=== PATIENT | female | born 1965 | race Caucasian/White ===

== ENCOUNTER 2020-05-03 07:51 | Outpatient (REF) | payer OTHER, SELFPAY ==
[2020-05-03 11:46] LABS: Alanine Aminotransferase 11 U/L (0-31); Albumin Level 4.3 g/dL (3.5-5.0); Alkaline Phosphatase 82 U/L (39-117); Anion Gap 13 (12-20); Aspartate Amino Transferase 16 U/L (5-31); Bilirubin Total 0.9 mg/dL (0.0-1.0); Blood Urea Nitrogen 15 mg/dL (9-16); Calcium 8.7 mg/dL (8.4-10.2); Carbon Dioxide 28 mmol/L (22-29); Chloride 105 mmol/L (96-108); Cholesterol 196 mg/dL; Estimated Glomerular Filt Rate > 60; Glucose Fasting 95 mg/dL (60-99); HDL Cholesterol 57 mg/dL; LDL Cholesterol Calculated 107 mg/dl; Potassium 4.3 mmol/l (3.3-5.1); Sodium 142 mmol/L (135-145); Total Protein 7.1 g/dL (6.5-8.0); Triglycerides 160 mg/dL
[2020-05-03 11:56] LABS: Free T4 (Free Thyroxine) 1.18 ng/dL (0.71-1.85); Thyroid Stimulating Hormone 0.18 mIU/mL (0.32-4.0)
== END 2020-05-03 07:52 | disposition home or self-care (01) ==
LOC: HO.HMGCLDS 07:51
PROVIDERS: PCP Internal Medicine; Visit Provider Internal Medicine
DX: E78.5 Hyperlipidemia, unspecified (principal); E03.9 Hypothyroidism, unspecified; E66.3 Overweight; K21.9 Gastro-esophageal reflux disease without esophagitis; J30.9 Allergic rhinitis, unspecified
CPT/HCPCS: 80053; 80061; 84439; 84443

== ENCOUNTER → 2020-06-28 08:26 | Outpatient (REF) | payer OTHER, SELFPAY ==
--- NOTE | 2020-06-28 08:29 | CA_ITS ---
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 The visually estimated ejection fraction is between 60-65%. - Suspect interatrial shunting based on color Doppler. PFO vs ASD. - There is mild calcification of the aortic valve. - There is mild mitral valve regurgitation. - There is mild tricuspid valve regurgitation. Findings Left Ventricle Normal left ventricular cavity size. There is normal left ventricular wall thickness. The left ventricular systolic function is normal. The visually estimated ejection fraction is between 60-65%. There is no evidence of regional wall motion abnormalities. Diastolic function is normal for age. Right Ventricle Normal right ventricular cavity size and systolic function. Atria The left atrium is normal in size. The right atrium is normal in size. Suspect interatrial shunting based on color Doppler. PFO vs ASD. Aortic Valve There is a normal trileaflet aortic valve. There is mild calcification of the aortic valve. There is no aortic valve stenosis. There is no aortic valve regurgitation. Mitral Valve The mitral valve appears normal. There is mild mitral valve regurgitation. There is no mitral valve stenosis. Pulmonic Valve The pulmonic valve was not well visualized. There is no pulmonic valve regurgitation. Tricuspid Valve Normal tricuspid valve structure. There is mild tricuspid valve regurgitation. The pulmonary artery systolic pressure is normal. Great Vessels The aortic annulus, sinuses of valsalva, and asc aorta are normal in size. Venous The inferior vena cava is normal in size and collapses greater than 50% with inspiration. Pericardium/Pleural There is no evidence of pericardial effusion. Prior Study Comparison Changes noted compared to prior study dated: 05/11/2006. See comments on atrial septum. Not previously described. Measurements 2D Linear Measurements RVIDd: 3.24 RVIDd Index: 1.88 IVSd: 0.67 0.6-0.9/0.6-1.0 cm LVIDd: 4.76 3.9-5.3/4.2-5.9 cm LVIDd Index: 2.77 2.4-3.2/2.2-3.1 cm/m2 LVIDs: 2.69 2.0-3.6 cm LVPWd: 0.74 0.7-1.1 cm Ao Root: 2.10 2.1-3.5 cm LA Diam: 3.40 2.7-3.8/3.0-4.0 cm LAIDs Index: 1.98 1.5-2.3 cm/m2 LV Mass: 132.83 67-162/88-224 g LV Mass Index: 77.23 43-95/49-115 g/m2 LVOT Diam: 2.00 3.0+(-)1.3 cm 2D Systolic Function EF 4C: 56.10 >55% EF 2C: 72.00 >55% EF BiP: 64.60 >55% Mitral Valve MV Pk E: 0.91 MV PK A: 0.87 MV Decel Time: 141.00 E/A: 1.00 E'Lateral: 8.59 E'Medial: 8.05 E/E' Med: 11.30 E/E' Lat: 10.60 Aortic Valve AoV Pk Pascual: 1.49 AoV Mn Pascual: 1.00 AoV VTI: 0.32 AoV Pk Grad: 9.00 Aov Mn Grad: 5.00 YOANNA Cont.VTI: 2.23 LVOT LVOT Pk Pascual: 1.07 LVOT Mn Pascual: 0.73 LVOT VTI: 0.23 LVOT Pk Grad: 5.00 LVOT Mn Grad: 2.00 LVOT Diam: 2.00 LVOT Area: 3.14 Diastolic Function MV Pk E: 0.91 MV Pk A: 0.87 E/A: 1.00 E'Medial: 8.05 E/E' Med: 11.30 E' Laterial: 8.59 E/E' Lat: 10.60 Tricuspid Valve TR Pk Pascual: 2.38 TR Pk Grad: 23.00 RA Press: 3.00 RVSP: 26.00 Great Vessels Aorta Ao Root-2D: 2.10 2.0-3.7 cm Ao Asc: 2.70 2.1-3.4 cm Ao Arch: 2.90 Updated in Other Vendor System with Status of Final Neymar Isabel MD electronically signed on 06/28/2020 11:04:44 AM with status of Final
== END ==
LOC: HO.CARD 08:26
PROVIDERS: Visit Provider Internal Medicine
DX: R00.2 Palpitations (principal); R06.00 Dyspnea, unspecified
CPT/HCPCS: 93306

== ENCOUNTER 2021-01-04 10:00 | Outpatient (REF) | payer OTHER, SELFPAY ==
--- NOTE | ~2021-01-04 | MM_ITS ---
EXAMINATION: MM SCREENING DIGITAL BREAST TOMOSYNTHESIS, BILATERAL CLINICAL INFORMATION: Screening. Asymptomatic. The lifetime risk of breast cancer based on the Tyrer-Cuzick Model is 5.2%. COMPARISON: Mammography: December 29, 2019 and studies dating back to May 25, 2014 TECHNIQUE: Digital breast tomosynthesis is performed in both the craniocaudal and mediolateral oblique views along with computer-aided detection (CAD). Synthesized 2D images are generated from the tomosynthesis. FINDINGS: There are scattered areas of fibroglandular density (ACR BI-RADS breast composition Category b). There are no significant masses, abnormal calcifications, or other abnormalities. MM/MM tomosynthesis screening BI IMPRESSION: There are no significant changes from prior study. ASSESSMENT: BI-RADS 1: Negative RECOMMENDATION: Routine annual mammography screening. This patient's information was entered into a reminder system with a target due date for their next mammogram.
== END 2021-01-04 10:01 | disposition home or self-care (01) ==
LOC: HO.MAMMO 10:00
PROVIDERS: PCP Internal Medicine; Visit Provider Internal Medicine
DX: Z12.31 Encounter for screening mammogram for malignant neoplasm of breast (principal)
CPT/HCPCS: 77063; 77067

== ENCOUNTER 2021-08-30 07:41 | Outpatient (REF) | payer OTHER, SELFPAY ==
[2021-08-30 12:08] LABS: Alanine Aminotransferase 8 U/L (0-31); Alkaline Phosphatase 66 U/L (39-117); Anion Gap 10 (12-20); Aspartate Amino Transferase 13 U/L (5-31); Bilirubin Total 0.7 mg/dL (0.0-1.0); Blood Urea Nitrogen 15 mg/dL (9-16); Calcium 9.2 mg/dL (8.4-10.2); Carbon Dioxide 30 mmol/L (22-29); Chloride 105 mmol/L (96-108); Cholesterol 169 mg/dL; Estimated Glomerular Filt Rate > 60; Glucose Fasting 101 mg/dL (60-99); HDL Cholesterol 59 mg/dL; LDL Cholesterol Calculated 91 mg/dl; Potassium 4.1 mmol/L (3.3-5.1); Sodium 141 mmol/L (135-145); Total Protein 6.6 g/dL (6.5-8.0); Triglycerides 96 mg/dL
[2021-08-30 12:35] LABS: Free T4 (Free Thyroxine) 1.34 ng/dL (0.71-1.85); Thyroid Stimulating Hormone 0.07 uIU/mL (0.32-4.0); Vitamin D 25-OH Total 16.8 ng/mL (>30)
== END 2021-08-30 07:42 | disposition home or self-care (01) ==
LOC: HO.HMGCLDS 07:41
PROVIDERS: Visit Provider Internal Medicine
DX: E03.9 Hypothyroidism, unspecified (principal); E78.00 Pure hypercholesterolemia, unspecified; E55.9 Vitamin D deficiency, unspecified
CPT/HCPCS: 36415; 80053; 80061; 82306; 84439; 84443

== ENCOUNTER 2021-10-11 10:09 | Outpatient (REF) | payer OTHER, SELFPAY ==
--- NOTE | ~2021-10-11 | MM_ITS ---
EXAMINATION: BONE DENSITOMETRY CLINICAL INDICATION: Asymptomatic menopausal state. COMPARISON: This is the patient's baseline examination. TECHNIQUE: Using a [employer] DXA System (software version: 13.1) manufactured by [employer], dual-energy x-ray absorptiometry was performed of the lumbar spine and left hip. The images are of good technical quality. Summary results are attached. FINDINGS: AP SPINE L1-L4: BMD 1.281 g/cm2, Z-score 1.9, T-score 0.8, normal. LEFT FEMUR, NECK: BMD 0.988 g/cm2, Z-score 0.8, T-score -0.4, normal. LEFT FEMUR, TOTAL: BMD 1.037 g/cm2, Z-score 1.0, T-score 0.2, normal. IDENTIFIED RISK FACTORS: Height loss, low calcium intake, menopause. HISTORY OF FRACTURE: None listed. MEDICATIONS: Calcium or multivitamin. MM/XR DEXA axial skeleton IMPRESSION: 1. DIAGNOSIS: Normal bone density based on the lowest T-score value of -0.4 in the femoral neck applying World Health Organization criteria. 2. 10-YEAR FRACTURE RISK PREDICTION, FRAX: According to the guidelines, FRAX calculation should only be performed on patients in the osteopenia bone density category. Therefore, FRAX was not performed on this patient. 3. Treatment Recommendations: NOF guidelines recommend consideration for treatment in postmenopausal women and men age 50 and older presenting with the following: -A hip or vertebral (clinical or morphometric) fracture. -T-score less than or equal to -2.5 at the femoral neck or spine after appropriate evaluation to exclude secondary causes. -Low bone mass at the hip or spine and a 10-year fracture probability by FRAX of greater than or equal to 3% for hip fracture or greater than or equal to 20% for major osteoporotic fracture based on the [place] adapted WHO algorithm. 4. Other Recommendations: All treatment decisions require clinical judgment and consideration of individual patient factors, including patient preferences, comorbidities, previous drug use, risk factors not captured in the FRAX model (e.g. frailty, falls, vitamin D deficiency, increased bone turnover, interval significant decline in bone density) and possible under or overestimation of fracture risk by FRAX. FUTURE SCAN RECOMMENDATION: People with diagnosed cases of osteoporosis or at high risk for fracture should have regular bone mineral density tests. For patients eligible for Medicare, routine testing is allowed once every 2 years. The testing frequency can be increased to one year for patients who have rapidly progressing disease, those who are receiving or discontinuing medical therapy to restore bone mass, or have additional risk factors.
== END 2021-10-11 10:10 | disposition home or self-care (01) ==
LOC: HO.MAMMO 10:09
PROVIDERS: PCP Internal Medicine; Visit Provider Internal Medicine
DX: Z13.820 Encounter for screening for osteoporosis (principal); Z78.0 Asymptomatic menopausal state; Z79.899 Other long term (current) drug therapy
CPT/HCPCS: 77080

== ENCOUNTER 2021-12-26 07:25 | Outpatient (REF) | payer OTHER, SELFPAY ==
[2021-12-26 11:35] LABS: MANUAL DIFF FLAG NO
[2021-12-26 11:40] LABS: Basophils Percent Auto 0.7 % (0-2); Eosinophils Absolute Auto 0.1 X10*3/uL (0.0-0.4); Eosinophils Percent Auto 1.9 % (0-4); Hematocrit 38.8 % (37.0-47.0); Hemoglobin 12.9 g/dl (12.0-16.0); Imm Gran Abs Auto 0.01 X10*3/uL (0.00-0.03); Imm Gran Pct Auto 0.2 % (0.0-0.4); Lymphocytes Absolute Auto 1.9 X10*3/uL (1.2-4.9); Lymphocytes Percent Auto 33.3 % (20-40); Mean Corpuscular HGB Conc 33.2 g/dl (31.0-35.0); Mean Corpuscular Hemoglobin 29.8 pg (27.0-33.0); Mean Corpuscular Volume 89.6 fL (80.0-98.0); Monocytes Absolute Auto 0.4 X10*3/uL (0.1-1.2); Monocytes Percent Auto 7.6 % (2-11); Neutrophils Absolute Auto 3.2 x10*3/uL (2.0-8.3); Neutrophils Percent Auto 56.3 % (45-73); Platelet Count 228 X10*3/uL (160-400); Red Blood Count 4.33 X10*6/uL (4.20-5.50); Red Cell Distribution Width 13.4 % (11.0-16.0); White Blood Count 5.7 X10*3/uL (4.8-10.8)
[2021-12-26 11:55] LABS: Appearance Urine CLEAR; Color Urine YELLOW; Glucose Urine UA NEG (NEG); Leukocyte Esterase Urine NEG (NEG); Nitrite Urine NEG (NEG); Urine Blood NEG (NEG); Urine Ketones NEG (NEG); Urine Protein NEG (NEG-TRACE)
[2021-12-26 12:18] LABS: Alanine Aminotransferase 9 U/L (0-31); Alkaline Phosphatase 74 U/L (39-117); Anion Gap 11 (12-20); Aspartate Amino Transferase 13 U/L (5-31); Bilirubin Total 0.8 mg/dL (0.0-1.0); Blood Urea Nitrogen 17 mg/dL (9-16); Calcium 8.8 mg/dL (8.4-10.2); Carbon Dioxide 27 mmol/L (22-29); Chloride 108 mmol/L (96-108); Cholesterol 173 mg/dL; Estimated Glomerular Filt Rate > 60; Free T4 (Free Thyroxine) 1.47 ng/dL (0.71-1.85); Glucose Fasting 97 mg/dL (60-99); HDL Cholesterol 58 mg/dL; LDL Cholesterol Calculated 102 mg/dl; Potassium 4.1 mmol/L (3.3-5.1); Sodium 142 mmol/L (135-145); Thyroid Stimulating Hormone 0.13 uIU/mL (0.32-4.0); Total Protein 6.6 g/dL (6.5-8.0); Triglycerides 65 mg/dL; Vitamin D 25-OH Total 32.5 ng/mL (>30)
[2021-12-28 04:29] LABS: Thyroid Peroxidase Antibodies 2 IU/mL (<9)
== END 2021-12-26 07:26 | disposition home or self-care (01) ==
LOC: HO.HMGCLDS 07:25
PROVIDERS: Visit Provider Internal Medicine
DX: I10 Essential (primary) hypertension (principal); E78.00 Pure hypercholesterolemia, unspecified; E03.9 Hypothyroidism, unspecified; E55.9 Vitamin D deficiency, unspecified
CPT/HCPCS: 36415; 80053; 80061; 81003; 82306; 84439; 84443; 85025; 86376

== ENCOUNTER 2022-01-23 13:19 | Outpatient (REF) | payer OTHER, SELFPAY ==
--- NOTE | ~2022-01-23 | MM_ITS ---
EXAMINATION: MM SCREENING DIGITAL BREAST TOMOSYNTHESIS, BILATERAL CLINICAL INFORMATION: Screening. Asymptomatic. The lifetime risk of breast cancer based on the Tyrer-Cuzick Model is 6%. COMPARISON: Mammography: 01/04/2021, 12/29/2019, 12/23/2018 TECHNIQUE: Digital breast tomosynthesis is performed in both the craniocaudal and mediolateral oblique views along with computer-aided detection (CAD). Synthesized 2D images are generated from the tomosynthesis. FINDINGS: There are scattered areas of fibroglandular density (ACR BI-RADS breast composition Category b). Parenchymal pattern is similar to prior studies. There are scattered minor asymmetries similar to prior exams. No significant mass or architectural abnormality or abnormal calcifications. The axilla and skin contours are unremarkable. No significant changes. MM/MM tomosynthesis screening BI IMPRESSION: No mammographic evidence of malignancy. ASSESSMENT: BI-RADS 2: Benign RECOMMENDATION: Routine annual mammography screening. This patient's information was entered into a reminder system with a target due date for their next mammogram.
== END 2022-01-23 13:20 | disposition home or self-care (01) ==
LOC: HO.MAMMO 13:19
PROVIDERS: PCP Internal Medicine; Visit Provider Internal Medicine
DX: Z12.31 Encounter for screening mammogram for malignant neoplasm of breast (principal)
CPT/HCPCS: 77063; 77067

== ENCOUNTER 2022-06-13 13:50 | Emergency (ER) | payer OTHER, SELFPAY ==
--- NOTE | ~2022-06-13 | XR_ITS ---
EXAMINATION: XR CHEST CLINICAL INFORMATION: Posterior back pain and chest tightness. COMPARISON: 07/18/2016 chest radiographs. TECHNIQUE: 2 views of the chest were obtained. FINDINGS: No significant abnormality is noted involving the heart, lungs, mediastinum, bony thorax or soft tissues. XR/XR chest 2V IMPRESSION: No acute cardiopulmonary process.
--- NOTE | ~2022-06-13 | CT_ITS ---
EXAMINATION: CT ANGIOGRAM OF THE CHEST WITH AND WITHOUT CONTRAST (CT PULMONARY ANGIOGRAM FOR PE) CLINICAL INFORMATION: Right posterior pleuritic chest pain. COMPARISON: None TECHNIQUE: Prior to contrast administration, noncontrast localization images were obtained. Subsequently, multidetector volumetric imaging was performed from the thoracic inlet to below the diaphragms following the administration of 65 mL Omnipaque 350 intravenous contrast. No contrast reaction reported Sagittal, coronal, and MIP oblique sagittal reformatted images were obtained on the CT workstation, uploaded to PACS, and reviewed. This CT examination was performed using dose optimization techniques as appropriate, variously including the following: *Automated exposure control *Adjustment of mA and/or kV according to patient size (this includes techniques or standardized protocols for targeted exams where dose is matched to indication/reason for exam; i.e. extremities or head) *Use of iterative reconstruction technique Total exam dose-length product 201 mGy-cm FINDINGS: QUALITY OF STUDY/CONTRAST BOLUS: Satisfactory. PULMONARY ARTERIES: No central or segmental pulmonary emboli. THORACIC AORTA: No aneurysm or dissection. LUNG: There is mild bronchial wall thickening and scattered areas of mucus plugging. There are a few bilateral sub-4 mm pulmonary nodules, for instance in the right upper lobe (6:121). No dense consolidation. No significant groundglass disease. The central airways are patent. PLEURA: No pleural effusion or pneumothorax. MEDIASTINUM: Normal heart size. Coronary artery calcifications are mild. No pericardial effusion. No hilar or mediastinal lymphadenopathy. No evidence of septal bowing or right heart strain. CHEST WALL/AXILLA: There are prominent asymmetric left-sided axillary lymph nodes, for instance measuring 1.1 cm short axis on image 13, series 5. OSSEOUS STRUCTURES: No acute or suspicious osseous abnormality. UPPER ABDOMEN: Cholecystectomy. No reflux of contrast into the hepatic veins to suggest elevated right heart pressures. CT/CT angio chest PE protocol IMPRESSION: 1. No evidence of pulmonary embolism or increased right-sided heart pressures. 2. There is mild bronchial wall thickening and scattered areas of mucus plugging suggesting small airways disease. 3. There are a few sub-4 mm pulmonary nodules. Assuming patient has no history of malignancy, recommend follow-up per Fleischner Society recommendations. According to the UPDATED 2017 Fleischner Society recommendations, the advised followup imaging for solid nodules < 6 mm is: LOW RISK PATIENT: No routine follow up. HIGH RISK PATIENT: Optional CT at 12 months. 4. Asymmetric prominent left axillary lymph nodes of uncertain etiology. Correlate with physical examination and recent vaccination status. VTE: negative
[2022-06-13 13:57] VITALS: BP 118/69; PULSE 84; RESP 18; TEMP 37.3; O2SAT 98; BMI 28.0
--- NOTE | 2022-06-13 13:57 | ECG_ITS ---
Test Reason : BACK PAIN Blood Pressure : / mmHG Vent. Rate : 067 BPM Atrial Rate : 067 BPM P-R Int : 154 ms QRS Dur : 084 ms QT Int : 408 ms P-R-T Axes : 068 046 063 degrees QTc Int : 431 ms Normal sinus rhythm Normal ECG No previous ECGs available Referred By: Millie Perez Electronically Signed By:ASHWINI BOYER
--- NOTE | 2022-06-13 13:58 | ED_ITS ---
HPI - Back Pain/Injury General Chief Complaint: Back Pain/Injury <KUN Thornton - Last Filed: 06/13/22 14:01> Stated Complaint: Diff Breathing R Side <KUN Thornton - Last Filed: 06/13/22 14:01> Time Seen by Provider: 06/13/22 21:01 <KUN Thornton - Last Filed: 06/13/22 14:01> Source: patient <Julius House MD - Last Filed: 06/14/22 03:05> Mode of arrival: ambulatory <Julius House MD - Last Filed: 06/14/22 03:05> Limitations: no limitations <Julius House MD - Last Filed: 06/14/22 03:05> History of Present Illness HPI Narrative: 57-year-old female who presents emergency department for evaluation of right shoulder pain. Patient states she woke up at 04:00 hours to use the bathroom. She states that when she woke up she noticed a pain in her right shoulder and between her shoulder blades. She states that the pain is been a constant pain which is 7/10 at its worst. She states the pain is worse with breathing. She denied shortness of breath or dyspnea on exertion. She denied fever, chills, rhinorrhea, sore throat or cough. She has not noticed any swelling in her lower extremities but she states she has constant pain in her lower extremities which is not new and is unchanged. She has not had any recent surgeries, gone on any long trips or taking any estrogen/progesterone supplements. <Julius House MD - Last Filed: 06/14/22 03:05> MD elicited complaint: back pain (Right posterior shoulder blade) <Julius House MD - Last Filed: 06/14/22 03:05> Onset (ago): hour(s) (17) <Julius House MD - Last Filed: 06/14/22 03:05> Timing: constant <Julius House MD - Last Filed: 06/14/22 03:05> Severity: moderate <Julius House MD - Last Filed: 06/14/22 03:05> Pain scale (0-10): 7 <Julius House MD - Last Filed: 06/14/22 03:05> Similar Symptoms Previously: Yes <Julius House MD - Last Filed: 06/14/22 03:05> Quality: sharp <Julius House MD - Last Filed: 06/14/22 03:05> Location: thoracic spine (Right shoulder blade) <Julius House MD - Last Filed: 06/14/22 03:05> Radiation: none <Julius House MD - Last Filed: 06/14/22 03:05> Exacerbating factors: deep breaths <Julius House MD - Last Filed: 06/14/22 03:05> Relieving factors: none <Julius House MD - Last Filed: 06/14/22 03:05> Treatments prior to arrival: acetaminophen <Julius House MD - Last Filed: 06/14/22 03:05> Work related injury: No <Julius House MD - Last Filed: 06/14/22 03:05> Related Data Home Medications: Home Medications Medication Instructions Recorded Confirmed albuterol sulfate 90 mcg/actuation 2 puff inhalation Q6H PRN 05/28/20 01/09/22 aerosol inhaler shortness of breath or wheezing Previous Rx's Medication Instructions Recorded cholecalciferol (vitamin D3) 50 50 mcg PO DAILY 90 days #90 caps 09/05/21 mcg (2,000 unit) capsule levothyroxine 112 mcg tablet 112 mcg PO QAM 90 days #90 tabs 09/05/21 (Euthyrox) simvastatin 10 mg tablet 10 mg PO BEDTIME 90 days #90 tabs 09/05/21 <KUN Thornton - Last Filed: 06/13/22 14:01> Allergies/Adverse Reactions: Allergies Allergy/AdvReac Type Severity Reaction Status Date / Time amoxicillin [Augmentin] Allergy Severe hives, lip Verified 01/09/22 10:18 swelling clavulanic acid [Augmentin] Allergy Severe hives,lip Verified 01/09/22 10:18 swelling ibuprofen [Ibuprofen] Allergy Severe DIFF Verified 01/09/22 10:18 BREATHING prednisone [Prednisone] Allergy Severe RASH, Verified 01/09/22 10:18 rash, SOB Sulfa (Sulfonamide AdvReac Intermediate ? rash, Verified 01/09/22 10:18 Antibiotics) headaches ? <KUN Thornton - Last Filed: 06/13/22 14:01> Review of Systems Review of Systems: Yes all other systems are reviewed and are negative <Julius House MD - Last Filed: 06/14/22 03:05> [facility] Past Medical History [facility] Narrative: Past surgical history: Reviewed below, . Social history: She denies tobacco use. She states she drinks 1 or 2 glasses of beer or wine once a month. She uses marijuana gummies daily for her arthritis pain. <Julius House MD - Last Filed: 06/14/22 03:05> Medical History: Medical History Acquired hypothyroidism Allergic rhinitis Anxiety Exertional dyspnea GERD without esophagitis Overweight (BMI 25.0-29.9) Palpitations Pure hypercholesterolemia Right hip pain Varicose veins of bilateral lower extremities with pain Vitamin D deficiency <KUN Thornton - Last Filed: 06/13/22 14:01> Surgical History: Surgical History History of colonoscopy History of laparoscopic cholecystectomy <KUN Thornton - Last Filed: 06/13/22 14:01> Family History Family History: Family History Father Diabetes Mother Cancer <KUN Thornton - Last Filed: 06/13/22 14:01> Social History Social History: Social History Housing: House Housing Other:: mobile home Alcohol intake: current Alcohol intake frequency: a few times a month Alcohol type: beer and wine Patient Tobacco Use Status: Former Tobacco user Smoked in Last 30 Days: No Second Hand Smoke Exposure: Yes Use of substances other than those prescribed or required for medical reasons: Yes Substance Use Type: Marijuana Advance Directives: No service: No Current occupational status: employed 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 Cognitive needs: No Hearing needs: No Vision needs: Yes <KUN Thornton - Last Filed: 06/13/22 14:01> Physical Exam Vital Signs: Vital Signs: Last Vital Signs Temp 98.6 F 06/14/22 02:20 Pulse 56 06/14/22 02:20 Resp 10 L 06/14/22 02:20 BP 101/43 L 06/14/22 02:20 Pulse Ox 97 06/14/22 02:20 O2 Del Method 06/14/22 02:20 BMI result Body Mass Index 28.0 <KUN Thornton - Last Filed: 06/13/22 14:01> Vital Signs: Last Vital Signs Temp 98.6 F 06/14/22 02:20 Pulse 56 06/14/22 02:20 Resp 10 L 06/14/22 02:20 BP 101/43 L 06/14/22 02:20 Pulse Ox 97 06/14/22 02:20 O2 Del Method 06/14/22 02:20 BMI result Body Mass Index 28.0 <Julius House MD - Last Filed: 06/14/22 03:05> Const: General: cooperative and no acute distress <Julius House MD - Last Filed: 06/14/22 03:05> Orientation/consciousness: oriented to person and oriented to place <Julius House MD - Last Filed: 06/14/22 03:05> Limitations: no limitations <Julius House MD - Last Filed: 06/14/22 03:05> HEENT: Head: Yes normal to inspection, Yes normocephalic and Yes atraumatic <Julius House MD - Last Filed: 06/14/22 03:05> Ears: external ears normal <Julius House MD - Last Filed: 06/14/22 03:05> General nose exam: Normal external nose present <Julius House MD - Last Filed: 06/14/22 03:05> Face and sinus: Yes normal facial exam <Julius House MD - Last Filed: 06/14/22 03:05> Mouth: Normal oral and palatal mucosa present <MD Geovany Delarosa Last Filed: 06/14/22 03:05> Throat: Yes posterior oropharynx normal <MD Geovany Delarosa Last Filed: 06/14/22 03:05> Eyes: General: appearance normal, both eyes and all related structures <MD Geovany Delarosa Last Filed: 06/14/22 03:05> Pupils: Equal, round and reactive pupils present <MD Geovany Delarosa Last Filed: 06/14/22 03:05> Neck: Neck: Yes normal visual inspection, Yes no lymphadenopathy, Yes trachea midline and Yes supple <Julius House MD - Last Filed: 06/14/22 03:05> Chest: Chest palpation & inspection: normal inspection of the chest and normal palpation of entire chest wall <MD Geovany Delarosa Last Filed: 06/14/22 03:05> Resp: Effort & Inspection: normal respiratory effort and able to speak in complete sentences <MD Geovany Delarosa Last Filed: 06/14/22 03:05> Auscultation: clear to auscultation bilaterally <MD Geovany Delarosa Last Filed: 06/14/22 03:05> Cardio: Rate: regular rate <MD Geovany Delarosa Last Filed: 06/14/22 03:05> Rhythm: regular rhythm <MD Geovany Delarosa Last Filed: 06/14/22 03:05> Heart sounds: S1 normal heart sound present, S2 normal heart sound present and no murmurs <MD Geovany Delarosa Last Filed: 06/14/22 03:05> GI: Inspection: Yes normal to inspection <MD Geovany Delarosa Last F iled: 06/14/22 03:05> Palpation (GI): Soft to palpation, nontender and no guarding <MD Geovany Delarosa Last Filed: 06/14/22 03:05> Auscultation: normal bowel sounds <MD Geovany Delarosa Last Filed: 06/14/22 03:05> : General: Yes no CVA tenderness <Julius House MD - Last Filed: 06/14/22 03:05> Back/Spine/Pelvis: Back: no CVA tenderness <Julius House MD - Last Filed: 06/14/22 03:05> Skin: General skin exam: no rashes or lesions noted <Julius House MD - Last Filed: 06/14/22 03:05> Neuro: General: oriented to person and oriented to place <Julius House MD - Last Filed: 06/14/22 03:05> Cranial nerves: Yes CN's II-XII intact bilaterally and Yes Equal, round and reactive pupils present <Julius House MD - Last Filed: 06/14/22 03:05> Cognition (Neuro): normal cognition <Julius House MD - Last Filed: 06/14/22 03:05> Motor exam (neuro): 5/5 motor strength present throughout <Julius House MD - Last Filed: 06/14/22 03:05> Extrem: General: Yes normal to inspection <Julius House MD - Last Filed: 06/14/22 03:05> Psych: Appearance: grossly normal <Julius House MD - Last Filed: 06/14/22 03:05> Speech and movement: Normal speech and movement present <Julius House MD - Last Filed: 06/14/22 03:05> Affect: normal affect <Julius House MD - Last Filed: 06/14/22 03:05> Attitude: cooperative <Julius House MD - Last Filed: 06/14/22 03:05> Thought process: Normal thought process present <Julius House MD - Last Filed: 06/14/22 03:05> Thought content: Normal thought content present <Julius House MD - Last Filed: 06/14/22 03:05> Course Course Course Narrative: 14pm - 57yoF c PMHx of HLD and hypothyroidism presenting to the ER c c/o Right mid back pain near her shoulder blade worse with deep inspiration with chest tightness a few hours prior to arrival. Denies any headaches, dizziness, change in vision, paresthesias, palpitations, cough, sputum production or any other s ymptoms complaints or concerns at this time. On exam patient is stable vital signs are stable. Not in any acute distress. Lungs CTA. CV RRR. Plan: Labs, EKG, CXR, influenza/COVID swab. Patient will be sent back to the waiting room for further evaluation treatment to the main ER. <KUN Thornton - Last Filed: 06/13/22 14:01> 14pm - 57yoF c PMHx of HLD and hypothyroidism presenting to the ER c c/o Right mid back pain near her shoulder blade worse with deep inspiration with chest tightness a few hours prior to arrival. Denies any headaches, dizziness, change in vision, paresthesias, palpitations, cough, sputum production or any other symptoms complaints or concerns at this time. On exam patient is stable vital signs are stable. Not in any acute distress. Lungs CTA. CV RRR. Plan: Labs, EKG, CXR, influenza/COVID swab. Patient will be sent back to the waiting room for further evaluation treatment to the main ER. 2153: Course: RME reviewed. 57-year-old female who presents emergency department for evaluation of right shoulder/shoulder plain pain which she noted when she woke up this morning at 04:00 hours to use the bathroom. The pain is been constant, 7/10 at its worst, worse with breathing, she denied fever, chills, cough, shortness of breath or dyspnea on exertion. She got some relief with taking Tylenol. Vital signs were unremarkable with an O2 saturation of 98% on room air. Physical examination revealed no tenderness palpation of her back, there are no rashes or lesions noted an area of her pain. Laboratory evaluation: CBC was normal. CMP revealed an elevated glucose of 179. High sensitivity troponin I was below detectable limits at 3.5. INR was normal 1.0. COVID, influenza, RSV were negative. Radiology evaluation: Chest x-ray, Two view: Radiology reading: IMPRESSION: No acute cardiopulmonary process. Dictated By:Kendall Oneil MDSigned By:<Electronically signed by Kendall Oneil MD in [place]>06/13/22 1450 Twelve EKG was unremarkable. The patient is having pleuritic over her right shoulder. I did add a D-dimer onto the patient's blood work. 0256: Patient's D-dimer was elevated at 638. CT pulmonary angiogram PE protocol revealed no pulmonary embolism. Patient has a few bilateral sub 4 mm pulmonary nodules which are incidental findings. I did discuss this with the patient. Patient's presentation is consistent with pleurisy. Patient cannot take any anti-inflammatory medications including prednisone. She was advised to take Tylenol for pain. She was given printed and verbal instructions discharged home. <Julius House MD - Last Filed: 06/14/22 03:05> Medications Administered Discontinued Medications Generic Name Dose Route Start Last Admin Trade Name Freq PRN Reason Stop Dose Admin Acetaminophen 975 mg 06/13/22 21:46 06/13/22 22:07 Acetaminophen 325 Mg Tablet PO 06/13/22 21:47 975 mg ONCE STA Administration Iohexol 65 ml 06/14/22 00:51 06/14/22 00:52 Iohexol 350 Mg/Ml 100 Ml Infus..Btl IV 06/14/22 00:52 65 ml ONCE ONE Administration <KUN Thornton - Last Filed: 06/13/22 14:01> Medications Administered Discontinued Medications Generic Name Dose Route Start Last Admin Trade Name Freq PRN Reason Stop Dose Admin Acetaminophen 975 mg 06/13/22 21:46 06/13/22 22:07 Acetaminophen 325 Mg Tablet PO 06/13/22 21:47 975 mg ONCE STA Administration Iohexol 65 ml 06/14/22 00:51 06/14/22 00:52 Iohexol 350 Mg/Ml 100 Ml Infus..Btl IV 06/14/22 00:52 65 ml ONCE ONE Administration <Julius House MD - Last Filed: 06/14/22 03:05> Medical Decision Making Lab Data Result Diagrams: : 06/13/22 14:17 06/13/22 14:17 <KUN Thornton - Last Filed: 06/13/22 14:01> Labs: Lab Results 06/13/22 06/13/22 06/13/22 Range/Units 14:17 14:17 14:17 WBC 7.0 (4.8-10.8) X10*3/uL RBC 4.65 (4.20-5.50) X10*6/uL Hgb 13.6 (12.0-16.0) g/dl Hct 40.6 (37.0-47.0) % MCV 87.3 (80.0-98.0) fL MCH 29.2 (27.0-33.0) pg MCHC 33.5 (31.0-35.0) g/dl RDW 13.2 (11.0-16.0) % Plt Count 220 (160-400) X10*3/uL MPV 9.4 (9.4-12.3) fL Immature Gran % (Auto) 0.3 (0.0-0.4) % Neut % (Auto) 53.5 (45-73) % Lymph % (Auto) 39.4 (20-40) % [place] % (Auto) 5.4 (2-11) % Eos % (Auto) 1.0 (0-4) % Baso % (Auto) 0.4 (0-2) % Lymph # (Auto) 2.8 (1.2-4.9) X10*3/uL [place] # (Auto) 0.4 (0.1-1.2) X10*3/uL Eos # (Auto) 0.1 (0.0-0.4) X10*3/uL Baso # (Auto) 0.0 (0.0-0.2) X10*3/uL Abs Immat Gran (auto) 0.02 (0.00-0.03) X10*3/uL Absolute Neuts (auto) 3.8 (2.0-8.3) x10*3/uL Absolute Nucleated RBC 0.000 (0.0-0.012) X10*3/uL Nucleated RBC % (auto) 0.0 (0.0-0.2) /100WBC PT 11.5 (10.0-13.1) SEC INR 1.0 (0.9-1.1) D-Dimer High Sensitivty 638 NG/ML Sodium 142 (135-145) mmol/L Potassium 4.0 (3.3-5.1) mmol/L Chloride 106 (96-108) mmol/L Carbon Dioxide 27 (22-29) mmol/L Anion Gap 13 (12-20) BUN 16 (9-16) mg/dL Creatinine 0.77 (0.5-1.4) mg/dL Estim Creat Clear Calc 71.7 Estimated GFR > 60 Random Glucose 179 H (60-115) mg/dL Calcium 9.5 D (8.4-10.2) mg/dL Magnesium 2.0 (1.6-2.6) mg/dL Total Bilirubin 1.0 (0.0-1.0) mg/dL AST 15 (5-31) U/L ALT 12 (0-31) U/L Alkaline Phosphatase 81 (39-117) U/L Troponin I High Sens (<3.5-17.0) ng/L Total Protein 6.7 (6.5-8.0) g/dL Albumin 4.1 (3.5-5.0) g/dL Urine Color Urine Appearance Urine pH (5.0-9.0) Ur Specific [place] (1.005-1.025) Urine Protein (Neg-Trace) mg/dL Urine Glucose (UA) (Negative) mg/dL Urine Ketones (Negative) mg/dL Urine Blood (Negative) Urine Nitrite (Negative) Ur Leukocyte Esterase (Negative) COVID-19 ([facility]) (Negative) COVID-19 Clin Com Influenza Type A ([facility]) (Negative) Influenza Type B ([facility]) (Negative) Influenza A & B Note 06/13/22 06/13/22 06/13/22 Range/Units 14:17 14:17 14:17 WBC (4.8-10.8) X10*3/uL RBC (4.20-5.50) X10*6/uL Hgb (12.0-16.0) g/dl Hct (37.0-47.0) % MCV (80.0-98.0) fL MCH (27.0-33.0) pg MCHC (31.0-35.0) g/dl RDW (11.0-16.0) % Plt Count (160-400) X10*3/uL MPV (9.4-12.3) fL Immature Gran % (Auto) (0.0-0.4) % Neut % (Auto) (45-73) % Lymph % (Auto) (20-40) % [place] % (Auto) (2-11) % Eos % (Auto) (0-4) % Baso % (Auto) (0-2) % Lymph # (Auto) (1.2-4.9) X10*3/uL [place] # (Auto) (0.1-1.2) X10*3/uL Eos # (Auto) (0.0-0.4) X10*3/uL Baso # (Auto) (0.0-0.2) X10*3/uL Abs Immat Gran (auto) (0.00-0.03) X10*3/uL Absolute Neuts (auto) (2.0-8.3) x10*3/uL Absolute Nucleated RBC (0.0-0.012) X10*3/uL Nucleated RBC % (auto) (0.0-0.2) /100WBC PT (10.0-13.1) SEC INR (0.9-1.1) D-Dimer High Sensitivty NG/ML Sodium (135-145) mmol/L Potassium (3.3-5.1) mmol/L Chloride (96-108) mmol/L Carbon Dioxide (22-29) mmol/L Anion Gap (12-20) BUN (9-16) mg/dL Creatinine (0.5-1.4) mg/dL Estim Creat Clear Calc Estimated GFR Random Glucose (60-115) mg/dL Calcium (8.4-10.2) mg/dL Magnesium (1.6-2.6) mg/dL Total Bilirubin (0.0-1.0) mg/dL AST (5-31) U/L ALT (0-31) U/L Alkaline Phosphatase (39-117) U/L Troponin I High Sens < 3.5 (<3.5-17.0) ng/L Total Protein (6.5-8.0) g/dL Albumin (3.5-5.0) g/dL Urine Color Urine Appearance Urine pH (5.0-9.0) Ur Specific [place] (1.005-1.025) Urine Protein (Neg-Trace) mg/dL Urine Glucose (UA) (Negative) mg/dL Urine Ketones (Negative) mg/dL Urine Blood (Negative) Urine Nitrite (Negative) Ur Leukocyte Esterase (Negative) COVID-19 ([facility]) Negative (Negative) COVID-19 Clin Com See Note Influenza Type A ([facility]) Negative (Negative) Influenza Type B ([facility]) Negative (Negative) Influenza A & B Note See Note 06/13/22 Range/Units 21:26 WBC (4.8-10.8) X10*3/uL RBC (4.20-5.50) X10*6/uL Hgb (12.0-16.0) g/dl Hct (37.0-47.0) % MCV (80.0-98.0) fL MCH (27.0-33.0) pg MCHC (31.0-35.0) g/dl RDW (11.0-16.0) % Plt Count (160-400) X10*3/uL MPV (9.4-12.3) fL Immature Gran % (Auto) (0.0-0.4) % Neut % (Auto) (45-73) % Lymph % (Auto) (20-40) % [place] % (Auto) (2-11) % Eos % (Auto) (0-4) % Baso % (Auto) (0-2) % Lymph # (Auto) (1.2-4.9) X10*3/uL [place] # (Auto) (0.1-1.2) X10*3/uL Eos # (Auto) (0.0-0.4) X10*3/uL Baso # (Auto) (0.0-0.2) X10*3/uL Abs Immat Gran (auto) (0.00-0.03) X10*3/uL Absolute Neuts (auto) (2.0-8.3) x10*3/uL Absolute Nucleated RBC (0.0-0.012) X10*3/uL Nucleated RBC % (auto) (0.0-0.2) /100WBC PT (10.0-13.1) SEC INR (0.9-1.1) D-Dimer High Sensitivty NG/ML Sodium (135-145) mmol/L Potassium (3.3-5.1) mmol/L Chloride (96-108) mmol/L Carbon Dioxide (22-29) mmol/L Anion Gap (12-20) BUN (9-16) mg/dL Creatinine (0.5-1.4) mg/dL Estim Creat Clear Calc Estimated GFR Random Glucose (60-115) mg/dL Calcium (8.4-10.2) mg/dL Magnesium (1.6-2.6) mg/dL Total Bilirubin (0.0-1.0) mg/dL AST (5-31) U/L ALT (0-31) U/L Alkaline Phosphatase (39-117) U/L Troponin I High Sens (<3.5-17.0) ng/L Total Protein (6.5-8.0) g/dL Albumin (3.5-5.0) g/dL Urine Color Yellow Urine Appearance Clear Urine pH 5.5 (5.0-9.0) Ur Specific [place] 1.025 (1.005-1.025) Urine Protein Negative (Neg-Trace) mg/dL Urine Glucose (UA) Negative (Negative) mg/dL Urine Ketones Negative (Negative) mg/dL Urine Blood Negative (Negative) Urine Nitrite Negative (Negative) Ur Leukocyte Esterase Negative (Negative) COVID-19 ([facility]) (Negative) COVID-19 Clin Com Influenza Type A ([facility]) (Negative) Influenza Type B ([facility]) (Negative) Influenza A & B Note <KUN Thornton - Last Filed: 06/13/22 14:01> Lab Results 06/13/22 06/13/22 06/13/22 Range/Units 14:17 14:17 14:17 WBC 7.0 (4.8-10.8) X10*3/uL RBC 4.65 (4.20-5.50) X10*6/uL Hgb 13.6 (12.0-16.0) g/dl Hct 40.6 (37.0-47.0) % MCV 87.3 (80.0-98.0) fL MCH 29.2 (27.0-33.0) pg MCHC 33.5 (31.0-35.0) g/dl RDW 13.2 (11.0-16.0) % Plt Count 220 (160-400) X10*3/uL MPV 9.4 (9.4-12.3) fL Immature Gran % (Auto) 0.3 (0.0-0.4) % Neut % (Auto) 53.5 (45-73) % Lymph % (Auto) 39.4 (20-40) % [place] % (Auto) 5.4 (2-11) % Eos % (Auto) 1.0 (0-4) % Baso % (Auto) 0.4 (0-2) % Lymph # (Auto) 2.8 (1.2-4.9) X10*3/uL [place] # (Auto) 0.4 (0.1-1.2) X10*3/uL Eos # (Auto) 0.1 (0.0-0.4) X10*3/uL Baso # (Auto) 0.0 (0.0-0.2) X10*3/uL Abs Immat Gran (auto) 0.02 (0.00-0.03) X10*3/uL Absolute Neuts (auto) 3.8 (2.0-8.3) x10*3/uL Absolute Nucleated RBC 0.000 (0.0-0.012) X10*3/uL Nucleated RBC % (auto) 0.0 (0.0-0.2) /100WBC PT 11.5 (10.0-13.1) SEC INR 1.0 (0.9-1.1) D-Dimer High Sensitivty 638 NG/ML Sodium 142 (135-145) mmol/L Potassium 4.0 (3.3-5.1) mmol/L Chloride 106 (96-108) mmol/L Carbon Dioxide 27 (22-29) mmol/L Anion Gap 13 (12-20) BUN 16 (9-16) mg/dL Creatinine 0.77 (0.5-1.4) mg/dL Estim Creat Clear Calc 71.7 Estimated GFR > 60 Random Glucose 179 H (60-115) mg/dL Calcium 9.5 D (8.4-10.2) mg/dL Magnesium 2.0 (1.6-2.6) mg/dL Total Bilirubin 1.0 (0.0-1.0) mg/dL AST 15 (5-31) U/L ALT 12 (0-31) U/L Alkaline Phosphatase 81 (39-117) U/L Troponin I High Sens (<3.5-17.0) ng/L Total Protein 6.7 (6.5-8.0) g/dL Albumin 4.1 (3.5-5.0) g/dL Urine Color Urine Appearance Urine pH (5.0-9.0) Ur Specific [place] (1.005-1.025) Urine Protein (Neg-Trace) mg/dL Urine Glucose (UA) (Negative) mg/dL Urine Ketones (Negative) mg/dL Urine Blood (Negative) Urine Nitrite (Negative) Ur Leukocyte Esterase (Negative) COVID-19 ([facility]) (Negative) COVID-19 Clin Com Influenza Type A ([facility]) (Negative) Influenza Type B ([facility]) (Negative) Influenza A & B Note 06/13/22 06/13/22 06/13/22 Range/Units 14:17 14:17 14:17 WBC (4.8-10.8) X10*3/uL RBC (4.20-5.50) X10*6/uL Hgb (12.0-16.0) g/dl Hct (37.0-47.0) % MCV (80.0-98.0) fL MCH (27.0-33.0) pg MCHC (31.0-35.0) g/dl RDW (11.0-16.0) % Plt Count (160-400) X10*3/uL MPV (9.4-12.3) fL Immature Gran % (Auto) (0.0-0.4) % Neut % (Auto) (45-73) % Lymph % (Auto) (20-40) % [place] % (Auto) (2-11) % Eos % (Auto) (0-4) % Baso % (Auto) (0-2) % Lymph # (Auto) (1.2-4.9) X10*3/uL [place] # (Auto) (0.1-1.2) X10*3/uL Eos # (Auto) (0.0-0.4) X10*3/uL Baso # (Auto) (0.0-0.2) X10*3/uL Abs Immat Gran (auto) (0.00-0.03) X10*3/uL Absolute Neuts (auto) (2.0-8.3) x10*3/uL Absolute Nucleated RBC (0.0-0.012) X10*3/uL Nucleated RBC % (auto) (0.0-0.2) /100WBC PT (10.0-13.1) SEC INR (0.9-1.1) D-Dimer High Sensitivty NG/ML Sodium (135-145) mmol/L Potassium (3.3-5.1) mmol/L Chloride (96-108) mmol/L Carbon Dioxide (22-29) mmol/L Anion Gap (12-20) BUN (9-16) mg/dL Creatinine (0.5-1.4) mg/dL Estim Creat Clear Calc Estimated GFR Random Glucose (60-115) mg/dL Calcium (8.4-10.2) mg/dL Magnesium (1.6-2.6) mg/dL Total Bilirubin (0.0-1.0) mg/dL AST (5-31) U/L ALT (0-31) U/L Alkaline Phosphatase (39-117) U/L Troponin I High Sens < 3.5 (<3.5-17.0) ng/L Total Protein (6.5-8.0) g/dL Albumin (3.5-5.0) g/dL Urine Color Urine Appearance Urine pH (5.0-9.0) Ur Specific [place] (1.005-1.025) Urine Protein (Neg-Trace) mg/dL Urine Glucose (UA) (Negative) mg/dL Urine Ketones (Negative) mg/dL Urine Blood (Negative) Urine Nitrite (Negative) Ur Leukocyte Esterase (Negative) COVID-19 ([facility]) Negative (Negative) COVID-19 Clin Com See Note Influenza Type A ([facility]) Negative (Negative) Influenza Type B ([facility]) Negative (Negative) Influenza A & B Note See Note 06/13/22 Range/Units 21:26 WBC (4.8-10.8) X10*3/uL RBC (4.20-5.50) X10*6/uL Hgb (12.0-16.0) g/dl Hct (37.0-47.0) % MCV (80.0-98.0) fL MCH (27.0-33.0) pg MCHC (31.0-35.0) g/dl RDW (11.0-16.0) % Plt Count (160-400) X10*3/uL MPV (9.4-12.3) fL Immature Gran % (Auto) (0.0-0.4) % Neut % (Auto) (45-73) % Lymph % (Auto) (20-40) % [place] % (Auto) (2-11) % Eos % (Auto) (0-4) % Baso % (Auto) (0-2) % Lymph # (Auto) (1.2-4.9) X10*3/uL [place] # (Auto) (0.1-1.2) X10*3/uL Eos # (Auto) (0.0-0.4) X10*3/uL Baso # (Auto) (0.0-0.2) X10*3/uL Abs Immat Gran (auto) (0.00-0.03) X10*3/uL Absolute Neuts (auto) (2.0-8.3) x10*3/uL Absolute Nucleated RBC (0.0-0.012) X10*3/uL Nucleated RBC % (auto) (0.0-0.2) /100WBC PT (10.0-13.1) SEC INR (0.9-1.1) D-Dimer High Sensitivty NG/ML Sodium (135-145) mmol/L Potassium (3.3-5.1) mmol/L Chloride (96-108) mmol/L Carbon Dioxide (22-29) mmol/L Anion Gap (12-20) BUN (9-16) mg/dL Creatinine (0.5-1.4) mg/dL Estim Creat Clear Calc Estimated GFR Random Glucose (60-115) mg/dL Calcium (8.4-10.2) mg/dL Magnesium (1.6-2.6) mg/dL Total Bilirubin (0.0-1.0) mg/dL AST (5-31) U/L ALT (0-31) U/L Alkaline Phosphatase (39-117) U/L Troponin I High Sens (<3.5-17.0) ng/L Total Protein (6.5-8.0) g/dL Albumin (3.5-5.0) g/dL Urine Color Yellow Urine Appearance Clear Urine pH 5.5 (5.0-9.0) Ur Specific [place] 1.025 (1.005-1.025) Urine Protein Negative (Neg-Trace) mg/dL Urine Glucose (UA) Negative (Negative) mg/dL Urine Ketones Negative (Negative) mg/dL Urine Blood Negative (Negative) Urine Nitrite Negative (Negative) Ur Leukocyte Esterase Negative (Negative) COVID-19 ([facility]) (Negative) COVID-19 Clin Com Influenza Type A ([facility]IRIAM) (Negative) Influenza Type B ([facility]IRIAM) (Negative) Influenza A & B Note <Julius House MD - Last Filed: 06/14/22 03:05> Discharge Plan Discharge Clinical Impression: Pleurisy, Pulmonary nodules <KUN Thornton - Last Filed: 06/13/22 14:01> Patient Disposition: Home, Self-Care <KUN Thornton - Last Filed: 06/13/22 14:01> Instructions: Pleurisy (ED) <KUN Thornton - Last Filed: 06/13/22 14:01> Additional Instructions: Your blood work revealed a normal CBC. You glucose was slightly elevated at 179. Your troponin (marker of heart damage) was below detectable limits which is reassuring. Your COVID-19, influenza and RSV tests were negative. You did have an elevated D-dimer of 638, but your CT scan of your chest did not reveal any blood clots in your chest which is reassuring. Your chest pain is consistent with inflammation of the lining of the lung called the pleura, this is called pleurisy. Take Tylenol (acetaminophen) 500 mg pills, 2 pills every 4 to 6 hours as needed for pain. The CT scan did reveal bilateral sub 4 mm pulmonary nodules (these are little small ball- like structures noted in both of your lungs). You need to discuss this finding with your primary care doctor, the radiology recommendation is that you get a follow-up CT scan in 12 months to make sure that the nodules are not getting larger. Please see the radiology report and make sure you discuss this with her doctor. Follow-up with your doctor in 2 days. Please return to the emergency department if your symptoms get worse or if you develop any symptoms that are concerning to you. INDINGS: QUALITY OF STUDY/CONTRAST BOLUS: Satisfactory. PULMONARY ARTERIES: No central or segmental pulmonary emboli. THORACIC AORTA: No aneurysm or dissection. LUNG: There is mild bronchial wall thickening and scattered areas of mucus plugging. There are a few bilateral sub-4 mm pulmonary nodules, for instance in the right upper lobe (6:121). No dense consolidation. No significant groundglass disease. The central airways are patent. PLEURA: No pleural effusion or pneumothorax. MEDIASTINUM: Normal heart size. Coronary artery calcifications are mild. No pericardial effusion. No hilar or mediastinal lymphadenopathy. No evidence of septal bowing or right heart strain. CHEST WALL/AXILLA: There are prominent asymmetric left-sided axillary lymph nodes, for instance measuring 1.1 cm short axis on image 13, series 5. OSSEOUS STRUCTURES: No acute or suspicious osseous abnormality. UPPER ABDOMEN: Cholecystectomy. No reflux of contrast into the hepatic veins to suggest elevated right heart pressures. CT/CT angio chest PE protocol IMPRESSION: 1. No evidence of pulmonary embolism or increased right-sided heart pressures. 2. There is mild bronchial wall thickening and scattered areas of mucus plugging suggesting small airways disease. 3. There are a few sub-4 mm pulmonary nodules. Assuming patient has no history of malignancy, recommend follow-up per Fleischner Society recommendations. According to the UPDATED 2017 Fleischner Society recommendations, the advised followup imaging for solid nodules < 6 mm is: LOW RISK PATIENT: No routine follow up. HIGH RISK PATIENT: Optional CT at 12 months. 4. Asymmetric prominent left axillary lymph nodes of uncertain etiology. Correlate with physical examination and recent vaccination status. VTE: negative Dictated By:Fanny QuiñonezSigned By:<Electronically signed by Fanny Quiñonez in OV>06/14/22 020 <KUN Thornton - Last Filed: 06/13/22 14:01> Prescriptions: No Action albuterol sulfate 90 mcg/actuation HFA aerosol inhaler 2 puff inhalation Q6H PRN (Reason: shortness of breath or wheezing) levothyroxine [Euthyrox] 112 mcg tablet 112 mcg PO QAM 90 Days Qty: 90 3RF simvastatin 10 mg tablet 10 mg PO BEDTIME 90 Days Qty: 90 3RF cholecalciferol (vitamin D3) 50 mcg (2,000 unit) capsule 50 mcg PO DAILY 90 Days Qty: 90 3RF <KUN Thornton - Last Filed: 06/13/22 14:01>
--- OUTSIDE RECORDS SUMMARY | 2022-06-13 14:16 | XMS_ITS | Continuity of Care Document ---
:1965 Author Organization [facility] Address [address] [place] [address]- Care Team Providers Name Role Phone Goyo Wilson MD Primary Care Physician Encounter [facility] [place] Date(s): 07/08/19 - 07/08/[address] [address]- [facility] Attending Physician: Goyo Wilson MD Allergies, Adverse Reactions, Alerts Substance Reaction Severity Status ibuprofen Active predniSONE Active Augmentin Active Medications Claritin Tablet 10 mg, By Mouth, Daily, Maintenance, 09/01/13 9:16:46 Start Date: 09/01/13 Status: OrderedFlonase 50 mcg/inh nasal spray 2 sprays, Nares, Both, 2 times a day, # 16 Gm, 0 Refills, Maintenance, 09/01/13 9:16:26, [place] Start Date: 09/01/13 Status: OrderedLevoxyl 0.112 mg oral tablet 1 tablet = 112 mcg, By Mouth, Daily, # 30 tablet, 0 Refills, Maintenance, 09/01/13 9:16:08, Tablet Start Date: 09/01/13 Status: Orderedsimvastatin 10 mg oral tablet 1 tablet = 10 mg, By Mouth, Daily at bedtime, # 30 tablet, 0 Refills, Maintenance, 09/01/13 9:15:36,Tablet Start Date: 09/01/13 Status: Ordered
[2022-06-13 14:26] LABS: MANUAL DIFF FLAG NO
[2022-06-13 14:33] LABS: Basophils Percent Auto 0.4 % (0-2); Eosinophils Absolute Auto 0.1 X10*3/uL (0.0-0.4); Hematocrit 40.6 % (37.0-47.0); Hemoglobin 13.6 g/dl (12.0-16.0); Imm Gran Abs Auto 0.02 X10*3/uL (0.00-0.03); Imm Gran Pct Auto 0.3 % (0.0-0.4); Lymphocytes Absolute Auto 2.8 X10*3/uL (1.2-4.9); Lymphocytes Percent Auto 39.4 % (20-40); Mean Corpuscular HGB Conc 33.5 g/dl (31.0-35.0); Mean Corpuscular Hemoglobin 29.2 pg (27.0-33.0); Mean Corpuscular Volume 87.3 fL (80.0-98.0); Mean Platelet Volume 9.4 fL (9.4-12.3); Monocytes Absolute Auto 0.4 X10*3/uL (0.1-1.2); Monocytes Percent Auto 5.4 % (2-11); Neutrophils Absolute Auto 3.8 x10*3/uL (2.0-8.3); Neutrophils Percent Auto 53.5 % (45-73); Platelet Count 220 X10*3/uL (160-400); Red Blood Count 4.65 X10*6/uL (4.20-5.50); Red Cell Distribution Width 13.2 % (11.0-16.0)
[2022-06-13 14:36] LABS: Prothrombin Time 11.5 SEC (10.0-13.1)
[2022-06-13 14:52] LABS: COVID-19 Test Negative (Negative); IDNOW Serial# 16C4AD1C; IDNOW Serial# BCCEAD1C; Influenza A Negative (Negative); Influenza B2 Negative (Negative)
[2022-06-13 14:58] LABS: Troponin-I High Sensitivity < 3.5 ng/L (<3.5-17.0)
[2022-06-13 14:59] LABS: Alanine Aminotransferase 12 U/L (0-31); Albumin Level 4.1 g/dL (3.5-5.0); Alkaline Phosphatase 81 U/L (39-117); Anion Gap 13 (12-20); Aspartate Amino Transferase 15 U/L (5-31); Blood Urea Nitrogen 16 mg/dL (9-16); Calcium 9.5 mg/dL (8.4-10.2); Carbon Dioxide 27 mmol/L (22-29); Chloride 106 mmol/L (96-108); Glucose Random 179 mg/dL (60-115); Sodium 142 mmol/L (135-145); Total Protein 6.7 g/dL (6.5-8.0)
[2022-06-13 15:59] LABS: Creatinine Clr Calc Pharmacy 71.7; Estimated Glomerular Filt Rate > 60
[2022-06-13 21:10] VITALS: BP 100/54; PULSE 65; RESP 16; TEMP 36.7; O2SAT 98
--- NOTE | 2022-06-13 21:12 | MHC.EDTECH ---
THIS PCT ASSUMED CARE OF PT AT 2100 ,VITALS SIGN TAKEN AND EKG DONE ,ALSO URINE CUP GIVEN TO PT FOR SAMPLE .
[2022-06-13 21:42] LABS: Appearance Urine Clear; Color Urine Yellow; Glucose Urine UA Negative (Negative); Leukocyte Esterase Urine Negative (Negative); Nitrite Urine Negative (Negative); PH 5.5 (5.0-9.0); Specific Gravity - Urine 1.025 (1.005-1.025); Urine Blood Negative (Negative); Urine Ketones Negative (Negative); Urine Protein Negative (Neg-Trace)
[2022-06-13 21:48] VITALS: BP 99/52; PULSE 68; RESP 16; TEMP 36.7; O2SAT 98
[2022-06-13] MEDS: Acetaminophen 325 MG TABLET 975 MG PO (22:07)
[2022-06-13 22:14] LABS: D Dimer High Sensitivity 638 NG/ML
--- NOTE | 2022-06-13 23:00 | PC.NURSE ---
Assumed care of patient. Patient alert and oriented. No pain reported.
[2022-06-14] VITALS: PULSE 56; RESP 10; O2SAT 97
[2022-06-14] MEDS: iohexoL 350 MG/ML 100 ML INFUS..BTL 65 ML IV (00:52)
[2022-06-14 02:20] VITALS: BP 101/43; PULSE 56; RESP 10; TEMP 37; O2SAT 97
--- NOTE | 2022-06-14 02:51 | PC.NURSE ---
Patient resting quietly. No apparent distress. Patient place on tele monitor
--- NOTE | 2022-06-14 03:18 | PC.NURSE ---
Discharge instructions given and explained to patient. Patient ambulates safely and independently. IV cath tip intact upon removal. No respiratory distress. Patient is able to speak in full sentences.
== END 2022-06-14 03:11 | disposition home or self-care (01) ==
PROVIDERS: Physician Assistant Medical; Emergency Provider Emergency Medicine Emergency Medical Services; PCP Internal Medicine
DX: R09.1 Pleurisy (principal); M54.50 Low back pain, unspecified; R91.1 Solitary pulmonary nodule; R06.02 Shortness of breath; Z20.822 Contact with and (suspected) exposure to COVID-19; Z87.891 Personal history of nicotine dependence
CPT/HCPCS: 36415; 71046; 71275; 80053; 81003; 83735; 84484; 85025; 85379; 85610; 87502; 87635; 93005; 99284; 99285; Q9967

== ENCOUNTER 2022-07-04 08:12 | Outpatient (REF) | payer OTHER, SELFPAY ==
[2022-07-04 13:18] LABS: Alanine Aminotransferase 10 U/L (0-31); Alkaline Phosphatase 80 U/L (39-117); Anion Gap 8 (12-20); Aspartate Amino Transferase 15 U/L (5-31); Bilirubin Total 1.1 mg/dL (0.0-1.0); Blood Urea Nitrogen 13 mg/dL (9-16); Calcium 9.3 mg/dL (8.4-10.2); Carbon Dioxide 31 mmol/L (22-29); Chloride 106 mmol/L (96-108); Cholesterol 187 mg/dL; Estimated Glomerular Filt Rate > 60; Glucose Fasting 97 mg/dL (60-99); HDL Cholesterol 58 mg/dL; LDL Cholesterol Calculated 110 mg/dl; Sodium 141 mmol/L (135-145); Total Protein 6.6 g/dL (6.5-8.0); Triglycerides 98 mg/dL
[2022-07-04 13:42] LABS: Free T4 (Free Thyroxine) 1.26 ng/dL (0.71-1.85); Thyroid Stimulating Hormone 0.22 uIU/mL (0.32-4.0); Vitamin D 25-OH Total 36.2 ng/mL (>30)
== END 2022-07-04 08:13 | disposition home or self-care (01) ==
LOC: HO.HMGCLDS 08:12
PROVIDERS: PCP Internal Medicine; Visit Provider Internal Medicine
DX: E03.9 Hypothyroidism, unspecified (principal); E78.00 Pure hypercholesterolemia, unspecified; E55.9 Vitamin D deficiency, unspecified
CPT/HCPCS: 36415; 80053; 80061; 82306; 84439; 84443

== ENCOUNTER 2022-11-01 12:08 | Outpatient (REF) | payer OTHER, SELFPAY ==
--- NOTE | 2022-11-01 10:00 | EMG_ITS ---
Please see scanned EMG / Nerve Conduction Report. MTDD
== END 2022-11-01 12:09 | disposition home or self-care (01) ==
LOC: HO.NEURO 12:08
PROVIDERS: PCP Internal Medicine; Visit Provider Internal Medicine
DX: R20.0 Anesthesia of skin (principal)
CPT/HCPCS: 95885; 95913

== ENCOUNTER 2022-11-07 06:49 | Outpatient (REF) | payer OTHER, SELFPAY ==
[2022-11-07 11:22] LABS: Appearance Urine Clear; Color Urine Yellow; Glucose Urine UA Negative (Negative); Leukocyte Esterase Urine Negative (Negative); MANUAL DIFF FLAG NO; Nitrite Urine Negative (Negative); Specific Gravity - Urine 1.015 (1.005-1.025); Urine Blood Negative (Negative); Urine Ketones Negative (Negative); Urine Protein Negative (Neg-Trace)
[2022-11-07 11:33] LABS: Basophils Percent Auto 0.5 % (0-2); Eosinophils Absolute Auto 0.1 X10*3/uL (0.0-0.4); Eosinophils Percent Auto 1.1 % (0-4); Hematocrit 39.6 % (37.0-47.0); Hemoglobin 12.9 g/dl (12.0-16.0); Imm Gran Abs Auto 0.02 X10*3/uL (0.00-0.03); Imm Gran Pct Auto 0.3 % (0.0-0.4); Lymphocytes Absolute Auto 2.2 X10*3/uL (1.2-4.9); Lymphocytes Percent Auto 34.5 % (20-40); Mean Corpuscular HGB Conc 32.6 g/dl (31.0-35.0); Mean Corpuscular Hemoglobin 28.9 pg (27.0-33.0); Mean Corpuscular Volume 88.8 fL (80.0-98.0); Mean Platelet Volume 10.1 fL (9.4-12.3); Monocytes Absolute Auto 0.4 X10*3/uL (0.1-1.2); Monocytes Percent Auto 6.5 % (2-11); Neutrophils Absolute Auto 3.7 x10*3/uL (2.0-8.3); Neutrophils Percent Auto 57.1 % (45-73); Platelet Count 237 X10*3/uL (160-400); Red Blood Count 4.46 X10*6/uL (4.20-5.50); Red Cell Distribution Width 13.7 % (11.0-16.0); White Blood Count 6.5 X10*3/uL (4.8-10.8)
[2022-11-07 13:03] LABS: Alanine Aminotransferase 10 U/L (0-31); Albumin Level 3.9 g/dL (3.5-5.0); Alkaline Phosphatase 80 U/L (39-117); Anion Gap 9 (12-20); Aspartate Amino Transferase 14 U/L (5-31); Bilirubin Total 0.9 mg/dL (0.0-1.0); Blood Urea Nitrogen 15 mg/dL (9-16); Calcium 9.1 mg/dL (8.4-10.2); Carbon Dioxide 30 mmol/L (22-29); Chloride 108 mmol/L (96-108); Cholesterol 182 mg/dL; Estimated Glomerular Filt Rate > 60; Glucose Fasting 97 mg/dL (60-99); HDL Cholesterol 61 mg/dL; LDL Cholesterol Calculated 109 mg/dl; Potassium 4.2 mmol/L (3.3-5.1); Sodium 143 mmol/L (135-145); Total Protein 6.4 g/dL (6.5-8.0); Triglycerides 64 mg/dL
[2022-11-07 13:05] LABS: Free T4 (Free Thyroxine) 1.28 ng/dL (0.71-1.85); Vitamin D 25-OH Total 43.5 ng/mL (>30)
== END 2022-11-07 06:50 | disposition home or self-care (01) ==
LOC: HO.HMGCLDS 06:49
PROVIDERS: PCP Internal Medicine; Visit Provider Internal Medicine
DX: E03.9 Hypothyroidism, unspecified (principal); E55.9 Vitamin D deficiency, unspecified; I10 Essential (primary) hypertension; R30.0 Dysuria; E78.00 Pure hypercholesterolemia, unspecified
CPT/HCPCS: 36415; 80053; 80061; 81003; 82306; 84439; 84443; 85025

== ENCOUNTER 2023-03-07 08:03 | Outpatient (REF) | payer OTHER, SELFPAY ==
[2023-03-07 11:26] LABS: Appearance Urine Clear; Color Urine Dark Yellow; Glucose Urine UA Negative (Negative); Leukocyte Esterase Urine Negative (Negative); Nitrite Urine Negative (Negative); Urine Blood Negative (Negative); Urine Ketones Trace mg/dL (Negative); Urine Protein Negative (Neg-Trace)
[2023-03-07 11:47] LABS: MANUAL DIFF FLAG NO
[2023-03-07 11:49] LABS: Basophils Percent Auto 0.7 % (0-2); Eosinophils Absolute Auto 0.1 X10*3/uL (0.0-0.4); Hematocrit 41.2 % (37.0-47.0); Hemoglobin 13.6 g/dl (12.0-16.0); Imm Gran Abs Auto 0.01 X10*3/uL (0.00-0.03); Imm Gran Pct Auto 0.2 % (0.0-0.4); Lymphocytes Absolute Auto 1.9 X10*3/uL (1.2-4.9); Lymphocytes Percent Auto 32.6 % (20-40); Mean Corpuscular Hemoglobin 29.2 pg (27.0-33.0); Mean Corpuscular Volume 88.6 fL (80.0-98.0); Mean Platelet Volume 9.7 fL (9.4-12.3); Monocytes Absolute Auto 0.4 X10*3/uL (0.1-1.2); Monocytes Percent Auto 7.4 % (2-11); Neutrophils Absolute Auto 3.4 x10*3/uL (2.0-8.3); Neutrophils Percent Auto 58.1 % (45-73); Platelet Count 246 X10*3/uL (160-400); Red Blood Count 4.65 X10*6/uL (4.20-5.50); Red Cell Distribution Width 13.6 % (11.0-16.0); White Blood Count 5.8 X10*3/uL (4.8-10.8)
[2023-03-07 12:57] LABS: Alanine Aminotransferase 10 U/L (0-31); Albumin Level 4.3 g/dL (3.5-5.0); Alkaline Phosphatase 74 U/L (39-117); Anion Gap 13 (12-20); Aspartate Amino Transferase 15 U/L (5-31); Bilirubin Total 1.2 mg/dL (0.0-1.0); Blood Urea Nitrogen 14 mg/dL (9-16); Calcium 9.9 mg/dL (8.4-10.2); Carbon Dioxide 27 mmol/L (22-29); Chloride 107 mmol/L (96-108); Cholesterol 180 mg/dL (<200); Estimated Glomerular Filt Rate > 60; Free T4 (Free Thyroxine) 1.28 ng/dL (0.71-1.85); Glucose Fasting 92 mg/dL (60-99); HDL Cholesterol 59 mg/dL (>40); LDL Cholesterol Calculated 103 mg/dL (<100); Sodium 143 mmol/L (135-145); Total Protein 7.3 g/dL (6.5-8.0); Triglycerides 94 mg/dL (<150); Vitamin D 25-OH Total 58.7 ng/mL (>30)
== END 2023-03-07 08:04 | disposition home or self-care (01) ==
LOC: HO.HMGCLDS 08:03
PROVIDERS: PCP Internal Medicine; Visit Provider Internal Medicine
DX: E03.9 Hypothyroidism, unspecified (principal); R30.0 Dysuria; I10 Essential (primary) hypertension; E55.9 Vitamin D deficiency, unspecified; E78.00 Pure hypercholesterolemia, unspecified
CPT/HCPCS: 36415; 80053; 80061; 81003; 82306; 84439; 84443; 85025

== ENCOUNTER 2023-03-12 10:45 | Outpatient (AMB) | payer OTHER, SELFPAY ==
[2023-03-12 10:52] VITALS: BP 114/72; PULSE 64; O2SAT 99; BMI 27.8
--- NOTE | 2023-03-12 10:52 | A.OFFPC_ITS ---
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 rash, headaches ? Medication List - Last Reconciled 03/12/23 by Goyo Wilson MD albuterol sulfate 90 mcg/actuation 2 puffs inhalation Q6H PRN cholecalciferol (vitamin D3) 50 mcg PO DAILY 90 days levothyroxine (Euthyrox) 112 mcg PO QAM 90 days simvastatin 10 mg PO BEDTIME 90 days Tobacco use date assessed: 03/12/23 Dental Screening Dental Screen Date: 03/12/23 Did you have a dental visit in the last 12 months?: No Did you have a dental problem in the last 6 months where you did not have access to dental care?: No Was dental information given to patient?: Patient has dentist HPI hyperlipidemia, hypothyroidism, OA HPI Details Patient comes in today for her follow up visit States that she feels okay She denies any headaches or dizziness Denies any chest pains, no SOB No nausea/vomiting, no abdominal pain No change in bowel habits noted Had her follow up labs done a few days ago - to discuss her results [facility] Medical History Vitamin D deficiency Varicose veins of bilateral lower extremities with pain Right hip pain Overweight (BMI 25.0-29.9) Anxiety Allergic rhinitis GERD without esophagitis Acquired hypothyroidism Exertional dyspnea Pure hypercholesterolemia Palpitations Surgical History History of colonoscopy History of laparoscopic cholecystectomy Family History Father Diabetes Mother Cancer Social History Housing: House Housing Other:: mobile home Alcohol intake: current Alcohol intake frequency: a few times a month Alcohol type: beer and wine Patient Tobacco Use Status: Former Tobacco user e-Cigarette/Vaping Use: Never Used Second Hand Smoke Exposure: Yes Substance Use Type: Marijuana service: No Current occupational status: employed 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 1. Little interest or pleasure in doing things: not at all 2. Feeling down, depressed, or hopeless: not at all 3. Trouble falling or staying asleep, or sleeping too much: not at all 4. Feeling tired or having little energy: not at all 5. Poor appetite or overeating: not at all 6. Feeling bad about yourself - or that you are a failure or have let yourself or your family down: not at all 7. Trouble concentrating on things, such as reading the newspaper or watching television: not at all 8. Moving or speaking so slowly that other people could have noticed. Or the opposite - being so fidgety or restless that you have been moving around a lot more than usual: not at all 9. Thoughts that you would be better off or of hurting yourself in some way: not at all Total score: 0 Depression Screening Interpretation: Negative [id number] - PHQ-9 Billing: Yes Source: Developed by Drs. Maikel Leal, Donna Diez, Smith uL and colleagues, with an educational hamilton from [employer]. Thrive Questionnaire Date Thrive assessed: 03/12/23 I am a: Patient What is your living situation today?: I have a steady place to live Within the past 12 months, did the food you bought not last and you didn't have the money to get more?: Never true Within the past 12 months, did you worry whether your food would run out before you got money to buy more?: Never true Do you have trouble paying for medicines?: No Do you have trouble getting transportation to medical appointments?: No Do you have trouble paying your heating and electricity bill?: No Do you have trouble taking care of your child, family member or friend?: No Do you have trouble with day-to-day activities such as bathing, preparing meals, shopping, managing finances, etc.?: No Are you currently unemployed and looking for a job?: No Are you interested in more education?: No Currently or been in a relationship where the following occur: no concerns reported AUDIT C Alcohol Use Questionnaire (AUDIT-C) 1. How often do you have a drink containing alcohol?: Monthly or less 2. How many drinks containing alcohol do you have on a typical day when you are drinking?: 1 or 2 3. How often do you have six or more drinks on one occasion?: Never Total Score: 1 Score Reviewed/Action Taken: Yes CHANTAL-7 AMB Questionnaire CHANTAL-7 Date CHANATL - 7 assessed: 11/13/22 Source: Developed by Drs. Maikel Leal, Donna Diez, Smith Lu and colleagues, with an educational hamilton from [employer]. Review of Systems Const Denies chills, Denies fatigue, Denies fever(s) and Denies headache(s) ENT Denies dysphagia, Denies dizziness, Denies otalgia, Denies headache(s), Denies neck pain, Denies odynophagia and Denies sore throat Card Denies chest pain, Denies palpitations and Denies dyspnea Resp Denies cough and Denies dyspnea GI Denies abdominal pain, Denies constipation, Denies dysphagia, Denies diarrhea, Denies nausea, Denies odynophagia and Denies vomiting Denies difficulty voiding, Denies nocturia and Denies dysuria Musc Reports arthralgias (on and off over both wrists), Denies neck pain, Reports numbness (recurrent in both hands, especially in the morning when she wakes up) and Reports tingling (frequent, in both hands) Skin/Breast Denies rash Neuro Denies dizziness, Denies headache(s), Reports numbness (recurrent in both hands, especially in the morning when she wakes up), Reports tingling (frequent, in both hands) and Reports paresthesias (recurrent in both hands) Endo Denies fatigue and Denies palpitations Physical exam (Primary Care) Vital Signs: Last Vital Signs Pulse 64 03/12/23 10:52 BP 114/72 03/12/23 10:52 Pulse Ox 99 03/12/23 10:52 Oxygen Delivery Method Room Air 03/12/23 10:52 BMI result Body Mass Index 27.8 Tobacco/Smoking Status: Tobacco use Status Tobacco use date assessed 03/12/23 03/12/23 10:56 Patient Tobacco Use Status Former Tobacco user 03/12/23 10:56 e-Cigarette/Vaping Use Never Used 03/12/23 10:56 PHQ-9: PHQ-9 Score PHQ-9: Total score 0 03/12/23 10:56 Depression Screening Interpretation: Negative Thrive Assessment: Date of Thrive Assessment Date Thrive assessed 11/13/22 03/12/23 10:56 Currently or been in a relationship where the following occur: no concerns reported Const General: no acute distress and alert HENMT Ears: TM's normal bilaterally and EAC's normal Throat: Yes posterior oropharynx normal and Yes tonsils normal Neck Neck: Yes no lymphadenopathy and Yes supple Resp Auscultation: clear to auscultation bilaterally, no rales and no wheezes Cardio Rate: regular rate Rhythm: regular rhythm Heart sounds: no murmurs GI Palpation (GI): Soft to palpation, nontender and No hepatosplenomegaly present Extrem General: Yes no clubbing, cyanosis or edema Right upper extremity: wrist Details: tenderness Location: of the volar wrist; Tinel's positive and Phalen's positive Left upper extremity: wrist ((+) Tinel's sign and Phalen's sign on the left wrist) Assessment and Plan Assessment & Plan (1) Pure hypercholesterolemia: Code(s): E78.00 - Pure hypercholesterolemia, unspecified Plan: Results of her labs done a few days ago reviewed and discussed with patient Reinforced low cholesterol diet Continue Simvastatin 10 mg QD Will recheck her labs and fasting lipids in 4 months for follow up (2) Acquired hypothyroidism: Code(s): E03.9 - Hypothyroidism, unspecified Plan: Her TSH remains suppressed but free T4 level is still normal on her recent labs Patient is currently clinically euthyroid; TPO Ab was low/negative when previously checked Continue Levothyroxine 112 mcg QD Will recheck her TFTs in 4 months for follow up (3) GERD without esophagitis: Code(s): K21.9 - Gastro-esophageal reflux disease without esophagitis Plan: Dietary restrictions reinforced (4) Pulmonary nodules/lesions, multiple: Code(s): R91.8 - Other nonspecific abnormal finding of lung field Plan: Recent chest CTA done revealed (+) few bilateral sub-4 mm pulmonary nodules noted, especially in the right upper lobe Reassured that given her low risks, she does not really need to follow up on these but she remains very concerned due to (+) family Hx - mother from lung cancer Advised that we can try to at least repeat a chest CT in 1 year (June 2023 or later) for follow up then (5) Allergic rhinitis: Code(s): J30.9 - Allergic rhinitis, unspecified Qualifiers: Allergic rhinitis trigger: unspecified Allergic rhinitis seasonality: unspecified Qualified Code(s): J30.9 - Allergic rhinitis, unspecified Plan: Continue OTC Loratadine 10 mg QD PRN (6) Varicose veins of bilateral lower extremities with pain: Code(s): I83.813 - Varicose veins of bilateral lower extremities with pain Plan: Follow up with vascular surgery (Dr. 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 Can continue wearing her wrist braces/splints PRN to help her manage her symptoms Will consider referral to orthopedics if her symptoms progress (8) Vitamin D deficiency: Code(s): E55.9 - Vitamin D deficiency, unspecified Plan: Continue Vitamin D3 2000 units QD (9) Anxiety: Code(s): F41.9 - Anxiety disorder, unspecified Plan: Continue Lorazepam 0.5 mg 1 to 2 times a day PRN and Sertraline 50 mg QD (10) Overweight (BMI 25.0-29.9): Code(s): E66.3 - Overweight Plan: Reinforced diet/exercise as tolerated/lose weight Plan Follow up in 4 months Orders: Orders Free T4 (Free Thyroxine) 4 Months E03.9 - Hypothyroidism, unspecified Comprehensive [place]. Panel Fast 4 Months E78.00 - Pure hypercholesterolemia, unspecified Thyroid Stimulating Hormone 4 Months E03.9 - Hypothyroidism, unspecified Complete Blood Count Auto Diff 4 Months I10 - Essential (primary) hypertension Lipid Panel 4 Months E78.00 - Pure hypercholesterolemia, unspecified UA CC w/rflx Micro + Cult 4 Months R30.0 - Dysuria Vitamin D 25-OH Total 4 Months E55.9 - Vitamin D deficiency, unspecified Coding Level of Care Code Est Pt Level 4 (35434) Diagnoses Pure hypercholesterolemia E78.00 Acquired hypothyroidism E03.9 GERD without esophagitis K21.9 Pulmonary nodules/lesions, multiple R91.8 Allergic rhinitis, unspecified seasonality, unspecified trigger J30.9 Allergic rhinitis trigger: unspecified Allergic rhinitis seasonality: unspecified Varicose veins of bilateral lower extremities with pain I83.813 Numbness and tingling in both hands R20.0; R20.2 Vitamin D deficiency E55.9 Anxiety F41.9 Overweight (BMI 25.0-29.9) E66.3
== END 2023-03-12 11:15 | disposition home or self-care (01) ==
PROVIDERS: PCP Internal Medicine; Visit Provider Internal Medicine
DX: E03.9 Hypothyroidism, unspecified (principal); K21.9 Gastro-esophageal reflux disease without esophagitis; E55.9 Vitamin D deficiency, unspecified; F41.9 Anxiety disorder, unspecified; E78.00 Pure hypercholesterolemia, unspecified; R91.8 Other nonspecific abnormal finding of lung field; J30.9 Allergic rhinitis, unspecified; I83.813 Varicose veins of bilateral lower extremities with pain; R20.0 Anesthesia of skin; R20.2 Paresthesia of skin; E66.3 Overweight
CPT/HCPCS: 99214

== ENCOUNTER 2023-04-09 10:53 | Outpatient (REF) | payer OTHER, SELFPAY | END 2023-04-09 10:54 | disposition home or self-care (01) | LOC: HO.MAMMO 10:53 | PROVIDERS: PCP Internal Medicine; Visit Provider Internal Medicine | DX: Z12.31 Encounter for screening mammogram for malignant neoplasm of breast (principal) | CPT/HCPCS: 77063; 77067 ==

== ENCOUNTER → 2023-04-09 11:30 | Outpatient (BNV) | payer OTHER, SELFPAY | PROVIDERS: PCP Internal Medicine; Visit Provider Radiology Diagnostic Radiology | DX: Z12.31 Encounter for screening mammogram for malignant neoplasm of breast (principal) | CPT/HCPCS: 77063; 77067 ==

== ENCOUNTER 2023-07-16 09:53 | Outpatient (AMB) | payer OTHER, SELFPAY ==
[2023-07-16 09:54] VITALS: BP 110/64; PULSE 68; O2SAT 98; BMI 27.1
--- NOTE | 2023-07-16 09:54 | MHC.PC.OV ---
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 rash, headaches ? Medication List - Last Reconciled 07/16/23 by Goyo Wilson MD albuterol sulfate 90 mcg/actuation 2 puffs inhalation Q6H PRN cholecalciferol (vitamin D3) 50 mcg PO DAILY 90 days levothyroxine (Euthyrox) 112 mcg PO QAM 90 days simvastatin 10 mg PO BEDTIME 90 days Tobacco use date assessed: 07/16/23 Dental Screening Dental Screen Date: 07/16/23 Did you have a dental visit in the last 12 months?: Yes Did you have a dental problem in the last 6 months where you did not have access to dental care?: No Was dental information given to patient?: Patient has dentist HPI hyperlipidemia, hypothyroidism HPI Details Patient comes in today for her follow up visit States that she feels okay She denies any headaches or dizziness Denies any chest pains, no increased SOB although she still feels that she needs to use her Albuterol inhaler at times and would like to see if she can get this Rx refilled No nausea/vomiting, no abdominal pain No change in bowel habits noted Still has on and off numbness / tingling in her hands and fingers and recurrent pain in her right wrist and over the IP joints of her fingers (due to OA) but states that these have not gotten significantly worse lately Was not able to get her follow up labs done yet and states that she will try to get these done tomorrow morning [facility] Medical History Vitamin D deficiency Varicose veins of bilateral lower extremities with pain Right hip pain Overweight (BMI 25.0-29.9) Anxiety Allergic rhinitis GERD without esophagitis Acquired hypothyroidism Exertional dyspnea Pure hypercholesterolemia Palpitations Surgical History History of colonoscopy History of laparoscopic cholecystectomy Family History Father Diabetes Mother Cancer Social History Housing: House Housing Other:: mobile home Alcohol intake: current Alcohol intake frequency: a few times a month Alcohol type: beer and wine Patient Tobacco Use Status: Former Tobacco user e-Cigarette/Vaping Use: Never Used Second Hand Smoke Exposure: Yes Substance Use Type: Marijuana service: No Current occupational status: employed 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 1. Little interest or pleasure in doing things: not at all 2. Feeling down, depressed, or hopeless: not at all 3. Trouble falling or staying asleep, or sleeping too much: not at all 4. Feeling tired or having little energy: not at all 5. Poor appetite or overeating: not at all 6. Feeling bad about yourself - or that you are a failure or have let yourself or your family down: not at all 7. Trouble concentrating on things, such as reading the newspaper or watching television: not at all 8. Moving or speaking so slowly that other people could have noticed. Or the opposite - being so fidgety or restless that you have been moving around a lot more than usual: not at all 9. Thoughts that you would be better off or of hurting yourself in some way: not at all Total score: 0 Depression Screening Interpretation: Negative Depression Screening Done: Yes 29258 - PHQ-9 Billing: Yes Source: Developed by Drs. Maikel Leal, Donna Diez, Smith Lu and colleagues, with an educational hamilton from [employer]. Thrive Questionnaire Date Thrive assessed: 07/16/23 I am a: Patient What is your living situation today?: I have a steady place to live Within the past 12 months, did the food you bought not last and you didn't have the money to get more?: Never true Within the past 12 months, did you worry whether your food would run out before you got money to buy more?: Never true Do you have trouble paying for medicines?: No Do you have trouble getting transportation to medical appointments?: No Do you have trouble paying your heating and electricity bill?: No Do you have trouble taking care of your child, family member or friend?: No Do you have trouble with day-to-day activities such as bathing, preparing meals, shopping, managing finances, etc.?: No Are you currently unemployed and looking for a job?: No Are you interested in more education?: No Currently or been in a relationship where the following occur: no concerns reported AUDIT C Alcohol Use Questionnaire (AUDIT-C) 1. How often do you have a drink containing alcohol?: Monthly or less 2. How many drinks containing alcohol do you have on a typical day when you are drinking?: 1 or 2 3. How often do you have six or more drinks on one occasion?: Never Total Score: 1 Score Reviewed/Action Taken: Yes CHANTAL-7 AMB Questionnaire CHANTAL-7 Date CHANTAL - 7 assessed: 07/16/23 Feeling nervous, anxious, or on edge: 1 = Several days Not being able to stop or control worryin = Several days Worrying too much about different things: 1 = Several days Trouble relaxin = Not at all Being so restless that it is hard to sit still: 0 = Not at all Becoming easily annoyed or irritable: 0 = Not at all Feeling afraid as if something awful might happen: 0 = Not at all Total CHANTAL-7 score (0-4 normal; 5-9 mild; 10-14 moderate; 15-21 severe): 3 Source: Developed by Drs. Maikel Leal, Donna Diez, Smith Lu and colleagues, with an educational hamilton from [employer]. Review of Systems Const Denies chills, Denies fatigue, Denies fever(s) and Denies headache(s) ENT Denies dysphagia, Denies dizziness, Denies otalgia, Denies headache(s), Denies neck pain, Denies odynophagia and Denies sore throat Card Denies chest pain, Denies palpitations and Reports dyspnea on exertion (at times, mild) Resp Denies chest congestion, Denies cough, Reports dyspnea on exertion (at times, mild) and Denies wheezing GI Denies abdominal pain, Denies constipation, Denies dysphagia, Denies diarrhea, Denies nausea, Denies odynophagia and Denies vomiting Denies difficulty voiding, Denies nocturia, Denies dysuria and Denies urinary urgency Musc Reports arthralgias (on and off over both wrists), Denies neck pain, Reports numbness (recurrent in both hands, especially in the morning when she wakes up) and Reports tingling (frequent, in both hands) Skin/Breast Denies rash Neuro Denies dizziness, Denies headache(s), Reports numbness (recurrent in both hands, especially in the morning when she wakes up), Reports tingling (frequent, in both hands) and Reports paresthesias (recurrent in both hands) Endo Denies fatigue and Denies palpitations Aller/Immun Denies wheezing Physical exam (Primary Care) Vital Signs: Last Vital Signs Pulse 68 07/16/23 09:54 BP 110/64 07/16/23 09:54 Pulse Ox 98 07/16/23 09:54 Oxygen Delivery Method Room Air 07/16/23 09:54 BMI result Body Mass Index 27.1 Tobacco/Smoking Status: Tobacco use Status Tobacco use date assessed 07/16/23 07/16/23 10:01 Patient Tobacco Use Status Former Tobacco user 07/16/23 10:01 e-Cigarette/Vaping Use Never Used 07/16/23 10:01 PHQ-9: PHQ-9 Score PHQ-9: Total score 0 07/16/23 10:01 Depression Screening Interpretation: Negative Thrive Assessment: Date of Thrive Assessment Date Thrive assessed 07/16/23 07/16/23 10:01 Currently or been in a relationship where the following occur: no concerns reported Const General: no acute distress and alert HENMT Ears: TM's normal bilaterally and EAC's normal Throat: Yes posterior oropharynx normal and Yes tonsils normal Neck Neck: Yes no lymphadenopathy and Yes supple Resp Auscultation: clear to auscultation bilaterally, no rales and no wheezes Cardio Rate: regular rate Rhythm: regular rhythm Heart sounds: no murmurs GI Palpation (GI): Soft to palpation, nontender and No hepatosplenomegaly present Back/Spine/Pelvis Cervical Spine: No Cervical spine tenderness Thoracic/Lumbar Spine: No lumbar spinal tenderness Extrem General: Yes no clubbing, cyanosis or edema Right upper extremity: wrist Details: tenderness Location: of the volar wrist; Tinel's positive and Phalen's positive and Extremity exam: right hand Details: tenderness (over the interphalangeal joints of the fingers, especially the DIP) Left upper extremity: wrist ((+) Tinel's sign and Phalen's sign on the left wrist) and hand Details: tenderness (over the interphalangeal joints of the fingers, especially the DIP) Assessment and Plan Assessment & Plan (1) Pure hypercholesterolemia: Code(s): E78.00 - Pure hypercholesterolemia, unspecified Plan: Patient was not able to get her follow up labs done prior to her visit today - states that she will try to get them done tomorrow morning Reinforced low cholesterol diet Continue Simvastatin 10 mg QD Will recheck her labs and fasting lipids in 4 months for follow up (2) Acquired hypothyroidism: Code(s): E03.9 - Hypothyroidism, unspecified Plan: Her TSH was still suppressed but free T4 level remained normal on her previous labs Patient is currently clinically euthyroid; TPO Ab was low/negative when previously checked Continue Levothyroxine 112 mcg QD Will recheck her TFTs in 4 months for follow up (3) GERD without esophagitis: Code(s): K21.9 - Gastro-esophageal reflux disease without esophagitis Plan: Dietary restrictions reinforced (4) Pulmonary nodules/lesions, multiple: Code(s): R91.8 - Other nonspecific abnormal finding of lung field Plan: Recent chest CTA done revealed (+) few bilateral sub-4 mm pulmonary nodules noted, especially in the right upper lobe She was reassured that given her low risks, she does not really need to follow up on these but she remains very concerned due to (+) family Hx - mother from lung cancer Advised that we can try to at least repeat a chest CT in 1 year for follow up if she wants to She also appears to have some degree of reactive airway disease as she sometimes feel the need to use her rescue inhaler and is looking to have this refilled today Will have her continue using Albuterol inhaler PRN for now but if this persists, may need to consider further work ups for possible ILD (5) Allergic rhinitis: Code(s): J30.9 - Allergic rhinitis, unspecified Qualifiers: Allergic rhinitis trigger: unspecified Allergic rhinitis seasonality: unspecified Qualified Code(s): J30.9 - Allergic rhinitis, unspecified Plan: Continue OTC Loratadine 10 mg QD PRN (6) Varicose veins of bilateral lower extremities with pain: Code(s): I83.813 - Varicose veins of bilateral lower extremities with pain Plan: Follow up with vascular surgery (Dr. 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 She can continue wearing her wrist braces/splints PRN to help her manage her symptoms Will consider referral to orthopedics if her symptoms get worse although advised that this will be mostly for her wrist symptoms and that her finger/hand OA is usually not correctable with surgery (8) Vitamin D deficiency: Code(s): E55.9 - Vitamin D deficiency, unspecified Plan: Continue Vitamin D3 2000 units QD (9) Anxiety: Code(s): F41.9 - Anxiety disorder, unspecified Plan: Continue Lorazepam 0.5 mg 1 to 2 times a day PRN and Sertraline 50 mg QD (10) Overweight (BMI 25.0-29.9): Code(s): E66.3 - Overweight Plan: Reinforced diet/exercise as tolerated/lose weight Plan Follow up in 4 months Orders: Orders Thyroid Stimulating Hormone 4 Months E03.9 - Hypothyroidism, unspecified Comprehensive [place]. Panel Fast 4 Months E78.00 - Pure hypercholesterolemia, unspecified Complete Blood Count Auto Diff 4 Months D64.9 - Anemia, unspecified Vitamin D 25-OH Total 4 Months E55.9 - Vitamin D deficiency, unspecified Free T4 (Free Thyroxine) 4 Months E03.9 - Hypothyroidism, unspecified Lipid Panel 4 Months E78.00 - Pure hypercholesterolemia, unspecified UA CC w/rflx Micro + Cult 4 Months R30.0 - Dysuria Medications: New albuterol sulfate 90 mcg/actuation 2 puffs inhalation Q6H PRN 8.5 grams 2RF shortness of breath or wheezing Coding Level of Care Code Est Pt Level 4 (89170) Diagnoses Pure hypercholesterolemia E78.00 Acquired hypothyroidism E03.9 GERD without esophagitis K21.9 Pulmonary nodules/lesions, multiple R91.8 Allergic rhinitis, unspecified seasonality, unspecified trigger J30.9 Allergic rhinitis trigger: unspecified Allergic rhinitis seasonality: unspecified Varicose veins of bilateral lower extremities with pain I83.813 Numbness and tingling in both hands R20.0; R20.2 Vitamin D deficiency E55.9 Anxiety F41.9 Overweight (BMI 25.0-29.9) E66.3
== END 2023-07-16 10:40 | disposition home or self-care (01) ==
PROVIDERS: PCP Internal Medicine; Visit Provider Internal Medicine
DX: E78.00 Pure hypercholesterolemia, unspecified (principal); E03.9 Hypothyroidism, unspecified; K21.9 Gastro-esophageal reflux disease without esophagitis; R91.8 Other nonspecific abnormal finding of lung field; J30.9 Allergic rhinitis, unspecified; I83.813 Varicose veins of bilateral lower extremities with pain; R20.0 Anesthesia of skin; R20.2 Paresthesia of skin; E55.9 Vitamin D deficiency, unspecified; F41.9 Anxiety disorder, unspecified; E66.3 Overweight
CPT/HCPCS: 99214

== ENCOUNTER 2023-07-17 08:32 | Outpatient (REF) | payer OTHER, SELFPAY ==
[2023-07-17 11:31] LABS: MANUAL DIFF FLAG NO
[2023-07-17 11:46] LABS: Basophils Percent Auto 0.5 % (0-2); Eosinophils Absolute Auto 0.1 X10*3/uL (0.0-0.4); Eosinophils Percent Auto 1.1 % (0-4); Hematocrit 39.4 % (37.0-47.0); Hemoglobin 13.1 g/dl (12.0-16.0); Imm Gran Abs Auto 0.01 X10*3/uL (0.00-0.03); Imm Gran Pct Auto 0.2 % (0.0-0.4); Lymphocytes Percent Auto 31.3 % (20-40); Mean Corpuscular HGB Conc 33.2 g/dl (31.0-35.0); Mean Corpuscular Hemoglobin 29.3 pg (27.0-33.0); Mean Corpuscular Volume 88.1 fL (80.0-98.0); Mean Platelet Volume 9.9 fL (9.4-12.3); Monocytes Absolute Auto 0.4 X10*3/uL (0.1-1.2); Monocytes Percent Auto 6.7 % (2-11); Neutrophils Absolute Auto 3.8 x10*3/uL (2.0-8.3); Neutrophils Percent Auto 60.2 % (45-73); Platelet Count 246 X10*3/uL (160-400); Red Blood Count 4.47 X10*6/uL (4.20-5.50); Red Cell Distribution Width 13.3 % (11.0-16.0); White Blood Count 6.2 X10*3/uL (4.8-10.8)
[2023-07-17 11:51] LABS: Appearance Urine Clear; Color Urine Yellow; Glucose Urine UA Negative (Negative); Leukocyte Esterase Urine Negative (Negative); Nitrite Urine Negative (Negative); PH 7.5 (5.0-9.0); Specific Gravity - Urine 1.015 (1.005-1.025); Urine Blood Negative (Negative); Urine Ketones Negative (Negative); Urine Protein Negative (Neg-Trace)
[2023-07-17 12:08] LABS: Alanine Aminotransferase 8 U/L (0-31); Albumin Level 3.9 g/dL (3.5-5.0); Alkaline Phosphatase 71 U/L (39-117); Anion Gap 12 (12-20); Aspartate Amino Transferase 13 U/L (5-31); Bilirubin Total 0.7 mg/dL (0.0-1.0); Blood Urea Nitrogen 13 mg/dL (9-16); Calcium 9.3 mg/dL (8.4-10.2); Carbon Dioxide 27 mmol/L (22-29); Chloride 107 mmol/L (96-108); Cholesterol 163 mg/dL (<200); Estimated Glomerular Filt Rate > 60; Glucose Fasting 87 mg/dL (60-99); HDL Cholesterol 53 mg/dL (>40); LDL Cholesterol Calculated 89 mg/dL (<100); Potassium 3.7 mmol/L (3.3-5.1); Sodium 142 mmol/L (135-145); Total Protein 6.9 g/dL (6.5-8.0); Triglycerides 105 mg/dL (<150)
[2023-07-17 12:24] LABS: Free T4 (Free Thyroxine) 1.68 ng/dL (0.71-1.85); Thyroid Stimulating Hormone 0.11 uIU/mL (0.32-4.0); Vitamin D 25-OH Total 51.3 ng/mL (>30)
== END 2023-07-17 08:33 | disposition home or self-care (01) ==
LOC: HO.HMGCLDS 08:32
PROVIDERS: PCP Internal Medicine; Visit Provider Internal Medicine
DX: E03.9 Hypothyroidism, unspecified (principal); R30.0 Dysuria; I10 Essential (primary) hypertension; E55.9 Vitamin D deficiency, unspecified; E78.00 Pure hypercholesterolemia, unspecified
CPT/HCPCS: 36415; 80053; 80061; 81003; 82306; 84439; 84443; 85025

== ENCOUNTER 2023-09-28 15:57 | Outpatient (AMB) | payer OTHER, SELFPAY ==
--- NOTE | 2023-09-28 16:10 | A.OFFPC_ITS ---
Vital Signs 09/28/23 16:11 Height 5 ft 2 in Weight 144 lb BMI 26.3 BP 108/60 Blood Pressure Location Lt brachial Position Sitting Pulse 60 Pulse Source Pulse Oximeter Pulse Oximetry (%) 98 Oxygen Delivery Method Room Air Intake Visit Reasons: [facility] 08/20-inflamed colon Intake Note: Patient is here to follow-up after a visit the emergency department at [facility] on 08/20/23. 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 rash, headaches ? Medication List - Last Reconciled 11/19/23 by Goyo Wilson MD albuterol sulfate 90 mcg/actuation 2 puffs inhalation Q6H PRN cholecalciferol (vitamin D3) 50 mcg PO DAILY 90 days levothyroxine (Euthyrox) 112 mcg PO QAM 90 days simvastatin 10 mg PO BEDTIME 90 days Tobacco use date assessed: 09/28/23 Dental Screening Dental Screen Date: 07/16/[address] [facility] 08/20-inflamed colon HPI Details Patient comes in today for her HDF follow up visit She went to the ER at [facility] last month for frequent diarrhea soft stools She denies any recent travel but recalls just finishing a course of oral Clindamycin after she had a bone graft done following a tooth extraction She denies seeing any blood in her stool Work ups done in the ER revealed (+) elevated WBC count and her C. diff testing at the time was indeteminate She was sent home on empiric oral Vancomycin Rx and was instructed to follow up with her PCP RANCHO although she states that she could not get an appointment until today States that she presently still has soft stools in general but her diarrhea appears to have improved a lot over the past few weeks and appears to be slowly resolving States that she feels okay otherwise and denies any fever, headaches or dizziness Denies any chest pains, no SOB No nausea/vomiting, no abdominal pain or cramping noted lately [facility] Medical History Vitamin D deficiency Varicose veins of bilateral lower extremities with pain Right hip pain Overweight (BMI 25.0-29.9) Anxiety Allergic rhinitis GERD without esophagitis Acquired hypothyroidism Exertional dyspnea Pure hypercholesterolemia Palpitations Surgical History History of bone graft History of colonoscopy History of laparoscopic cholecystectomy Family History Father Diabetes Mother Cancer Social History Housing: House Housing Other:: mobile home Alcohol intake: current Alcohol intake frequency: a few times a month Alcohol type: beer and wine Patient Tobacco Use Status: Former Tobacco user e-Cigarette/Vaping Use: Never Used Second Hand Smoke Exposure: Yes Substance Use Type: Marijuana service: No Current occupational status: employed 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 Maikel Leal, Donna Diez, Smith Lu and colleagues, with an educational hamilton from [employer]. Review of Systems Const Denies chills, Denies fatigue, Denies fever(s) and Denies headache(s) ENT Denies dysphagia, Denies dizziness, Denies otalgia, Denies headache(s), Denies neck pain, Denies odynophagia and Denies sore throat Card Denies chest pain, Denies palpitations and Denies dyspnea Resp Denies chest congestion, Denies cough, Denies dyspnea and Denies wheezing GI Denies abdominal pain, Denies hematochezia, Denies dysphagia, Denies diarrhea, Reports loose stools (soft stools at times), Denies nausea, Denies odynophagia and Denies vomiting Denies difficulty voiding, Denies nocturia, Denies dysuria and Denies urinary urgency Musc Reports arthralgias (on and off over both wrists) and Denies neck pain Skin/Breast Denies rash Neuro Denies dizziness and Denies headache(s) Endo Denies fatigue and Denies palpitations Aller/Immun Denies wheezing Physical exam (Primary Care) Vital Signs: Last Vital Signs Pulse 60 09/28/23 16:11 BP 108/60 09/28/23 16:11 Pulse Ox 98 09/28/23 16:11 Oxygen Delivery Method Room Air 09/28/23 16:11 BMI result Body Mass Index 26.3 Tobacco/Smoking Status: Tobacco use Status Tobacco use date assessed 09/28/23 09/28/23 16:18 Patient Tobacco Use Status Former Tobacco user 09/28/23 16:10 e-Cigarette/Vaping Use Never Used 09/28/23 16:10 Thrive Assessment: Date of Thrive Assessment Date Thrive assessed 07/16/23 09/28/23 16:10 Const General: no acute distress and alert HENMT Throat: Yes posterior oropharynx normal and Yes tonsils normal Neck Neck: Yes no lymphadenopathy and Yes supple Thyroid: Thyroid normal Resp Auscultation: clear to auscultation bilaterally, no rales and no wheezes Cardio Rate: regular rate Rhythm: regular rhythm Heart sounds: no murmurs GI Palpation (GI): Soft to palpation, nontender and no guarding Auscultation: normal bowel sounds General: Yes no CVA tenderness Back/Spine/Pelvis Back: no CVA tenderness Skin Rashes: no rashes Extrem General: Yes no clubbing, cyanosis or edema Assessment and Plan Assessment & Plan (1) Colitis: Code(s): K52.9 - Noninfective gastroenteritis and colitis, unspecified Plan: Patient was reportedly diagnosed with inflammatory colitis and she remains concerned about this States that her diarrhea has improved over the past few weeks but she currently still has some soft stools Advised that she most likely had a mild degree of C. diff colitis as her symptoms appear to have started following a course of oral Clindamycin prescribed by her dentist C. diff testing done at the ER a few weeks ago was indeterminate but she was treated empirically with oral Vancomycin from the ER Will send her for some repeat labs and stool testing [facility]CHO for follow up / further evaluation and recheck her C. diff as well Plan Follow up as scheduled in October 2023 Orders: Orders CDiff Gene PCR 09/28/23 K52.9 - Noninfective gastroenteritis and colitis, unspecified Leukocytes Stool Qualitative 09/28/23 R19.7 - Diarrhea, unspecified Complete Blood Count Auto Diff 09/28/23 D64.9 - Anemia, unspecified, K52.9 - Noninfective gastroenteritis and colitis, unspecified Comprehensive Met. Panel 09/28/23 K52.9 - Noninfective gastroenteritis and colitis, unspecified Erythrocyte Sedimentation Rate 09/28/23 M79.7 - Fibromyalgia, K52.9 - Noninfective gastroenteritis and colitis, unspecified C Reactive Protein 09/28/23 K52.9 - Noninfective gastroenteritis and colitis, unspecified Coding Level of Care Code Est Pt Level 3 (30417) Diagnoses Colitis K52.9
[2023-09-28 16:11] VITALS: BP 108/60; PULSE 60; O2SAT 98; BMI 26.3
== END 2023-09-28 16:57 | disposition home or self-care (01) ==
PROVIDERS: PCP Internal Medicine; Visit Provider Internal Medicine
DX: K52.9 Noninfective gastroenteritis and colitis, unspecified (principal)
CPT/HCPCS: 99213

== ENCOUNTER 2023-11-12 08:13 | Outpatient (REF) | payer OTHER, SELFPAY ==
[2023-11-12 10:22] LABS: MANUAL DIFF FLAG NO
[2023-11-12 10:31] LABS: Basophils Percent Auto 0.8 % (0-2); Eosinophils Absolute Auto 0.1 X10*3/uL (0.0-0.4); Eosinophils Percent Auto 1.2 % (0-4); Hematocrit 40.8 % (37.0-47.0); Hemoglobin 13.5 g/dl (12.0-16.0); Imm Gran Abs Auto 0.01 X10*3/uL (0.00-0.03); Imm Gran Pct Auto 0.2 % (0.0-0.4); Lymphocytes Percent Auto 39.4 % (20-40); Mean Corpuscular HGB Conc 33.1 g/dl (31.0-35.0); Mean Corpuscular Hemoglobin 29.7 pg (27.0-33.0); Mean Corpuscular Volume 89.7 fL (80.0-98.0); Monocytes Absolute Auto 0.3 X10*3/uL (0.1-1.2); Monocytes Percent Auto 6.3 % (2-11); Neutrophils Absolute Auto 2.7 x10*3/uL (2.0-8.3); Neutrophils Percent Auto 52.1 % (45-73); Platelet Count 245 X10*3/uL (160-400); Red Blood Count 4.55 X10*6/uL (4.20-5.50); Red Cell Distribution Width 13.8 % (11.0-16.0); White Blood Count 5.1 X10*3/uL (4.8-10.8)
[2023-11-12 11:03] LABS: Alanine Aminotransferase 10 U/L (0-31); Albumin Level 4.1 g/dL (3.5-5.0); Alkaline Phosphatase 70 U/L (39-117); Anion Gap 13 (12-20); Aspartate Amino Transferase 15 U/L (5-31); Bilirubin Total 0.9 mg/dL (0.0-1.0); Blood Urea Nitrogen 12 mg/dL (9-16); Calcium 9.7 mg/dL (8.4-10.2); Carbon Dioxide 26 mmol/L (22-29); Chloride 108 mmol/L (96-108); Estimated Glomerular Filt Rate > 60; Glucose Random 94 mg/dL (60-115); Potassium 4.2 mmol/L (3.3-5.1); Sodium 143 mmol/L (135-145); Total Protein 7.1 g/dL (6.5-8.0)
[2023-11-12 11:30] LABS: Erythrocyte Sedimentation Rate 14 MM/HR (0-20)
== END 2023-11-12 08:14 | disposition home or self-care (01) ==
LOC: HO.HMGCLDS 08:13
PROVIDERS: PCP Internal Medicine; Visit Provider Internal Medicine
DX: M79.7 Fibromyalgia (principal); K52.9 Noninfective gastroenteritis and colitis, unspecified; D64.9 Anemia, unspecified
CPT/HCPCS: 36415; 80053; 85025; 85652; 86140

== ENCOUNTER 2023-11-13 08:10 | Outpatient (REF) | payer OTHER, SELFPAY ==
[2023-11-13 14:44] LABS: Leukocytes Stool Qualitative NEGATIVE (NEGATIVE)
[2023-11-13 14:52] LABS: CDiff Gene PCR NEGATIVE (Negative)
== END 2023-11-13 08:11 | disposition home or self-care (01) ==
LOC: HO.HMGCLNP 08:10
PROVIDERS: PCP Internal Medicine; Visit Provider Internal Medicine
DX: K52.9 Noninfective gastroenteritis and colitis, unspecified (principal); R19.7 Diarrhea, unspecified
CPT/HCPCS: 87493; 89055

== ENCOUNTER 2023-11-19 09:02 | Outpatient (AMB) | payer OTHER, SELFPAY ==
--- NOTE | 2023-11-19 09:22 | A.OFFPC_ITS ---
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 rash, headaches ? Medication List - Last Reconciled 11/19/23 by Goyo Wilson MD albuterol sulfate 90 mcg/actuation 2 puffs inhalation Q6H PRN cholecalciferol (vitamin D3) 50 mcg PO DAILY 90 days levothyroxine (Euthyrox) 112 mcg PO QAM 90 days simvastatin 10 mg PO BEDTIME 90 days Tobacco use date assessed: 11/19/23 Dental Screening Dental Screen Date: 07/16/23 HPI hyperlipidemia, hypothyroidism HPI Details Patient comes in today for her follow up visit States that she feels okay and that her previous diarrhea/loose stools from a few weeks ago have all since resolved completely Work ups done previously were also all negative and she is reassured that she does not appear to have any inflammatory bowel disease or Crohn's disease She denies any headaches or dizziness Denies any chest pains, no SOB No nausea/vomiting, no abdominal pain No change in bowel habits noted Had her follow up labs done last week - to discuss her results [facility] Medical History Vitamin D deficiency Varicose veins of bilateral lower extremities with pain Right hip pain Overweight (BMI 25.0-29.9) Anxiety Allergic rhinitis GERD without esophagitis Acquired hypothyroidism Exertional dyspnea Pure hypercholesterolemia Palpitations Surgical History History of bone graft History of colonoscopy History of laparoscopic cholecystectomy Family History Father Diabetes Mother Cancer Social History Housing: House Housing Other:: mobile home Alcohol intake: current Alcohol intake frequency: a few times a month Alcohol type: beer and wine Patient Tobacco Use Status: Former Tobacco user e-Cigarette/Vaping Use: Never Used Second Hand Smoke Exposure: Yes Substance Use Type: Marijuana service: No Current occupational status: employed 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 Maikel Leal, Donna Diez, mSith Lu and colleagues, with an educational hamilton from [employer]. Review of Systems Const Denies chills, Denies fatigue, Denies fever(s) and Denies headache(s) ENT Denies dysphagia, Denies dizziness, Denies otalgia, Denies headache(s), Denies neck pain, Denies odynophagia and Denies sore throat Card Denies chest pain, Denies palpitations and Denies dyspnea Resp Denies chest congestion, Denies cough, Denies dyspnea and Denies wheezing GI Denies abdominal pain, Denies constipation, Denies dysphagia, Denies diarrhea, Denies nausea, Denies odynophagia and Denies vomiting Denies difficulty voiding, Denies nocturia, Denies dysuria and Denies urinary urgency Musc Reports arthralgias (on and off over both wrists), Denies neck pain, Reports numbness (recurrent in both hands, especially in the morning when she wakes up) and Reports tingling (frequent, in both hands) Skin/Breast Denies rash Neuro Denies dizziness, Denies headache(s), Reports numbness (recurrent in both hands, especially in the morning when she wakes up), Reports tingling (frequent, in both hands) and Reports paresthesias (recurrent in both hands) Endo Denies fatigue and Denies palpitations Aller/Immun Denies wheezing Physical exam (Primary Care) Vital Signs: Last Vital Signs Pulse 73 11/19/23 09:25 BP 120/60 11/19/23 09:25 Pulse Ox 97 11/19/23 09:25 Oxygen Delivery Method Room Air 11/19/23 09:25 BMI result Body Mass Index 26.0 Tobacco/Smoking Status: Tobacco use Status Tobacco use date assessed 11/19/23 11/19/23 09:27 Patient Tobacco Use Status Former Tobacco user 11/19/23 09:27 e-Cigarette/Vaping Use Never Used 11/19/23 09:27 Thrive Assessment: Date of Thrive Assessment Date Thrive assessed 07/16/23 11/19/23 09:27 Const General: no acute distress and alert HENMT Ears: TM's normal bilaterally and EAC's normal Throat: Yes posterior oropharynx normal and Yes tonsils normal Neck Neck: Yes no lymphadenopathy and Yes supple Thyroid: Thyroid normal, no masses and nontender Resp Auscultation: clear to auscultation bilaterally, no rales and no wheezes Cardio Rate: regular rate Rhythm: regular rhythm Heart sounds: no murmurs GI Palpation (GI): Soft to palpation and nontender Auscultation: normal bowel sounds General: Yes no CVA tenderness Back/Spine/Pelvis Back: no CVA tenderness Cervical Spine: No Cervical spine tenderness Thoracic/Lumbar Spine: No lumbar spinal tenderness Skin Rashes: no rashes Extrem General: Yes no clubbing, cyanosis or edema Right upper extremity: wrist Details: tenderness Location: of the volar wrist; Tinel's positive and Phalen's positive and Extremity exam: right hand Details: tenderness (over the interphalangeal joints of the fingers, especially the DIP) Left upper extremity: wrist ((+) Tinel's sign and Phalen's sign on the left wrist) and hand Details: tenderness (over the interphalangeal joints of the fingers, especially the DIP) Results Reviewed Results Reviewed: Laboratory Tests 11/12/23 11/12/23 11/13/23 08:45 09:38 08:10 WBC 5.1 Hgb 13.5 Hct 40.8 Plt Count 245 ESR 14 Sodium 143 Potassium 4.2 Creatinine 0.63 Estimated GFR > 60 Random Glucose 94 AST 15 ALT 10 Stool Leukocytes, Qual NEGATIVE C. difficile Tox B Gene NEGATIVE Assessment and Plan Assessment & Plan (1) Pure hypercholesterolemia: Code(s): E78.00 - Pure hypercholesterolemia, unspecified Plan: Results of her labs done last week reviewed and discussed with patient but it looks like the lab did not do a fasting lipid profile on her and instead ran her specimen as non-fasting (patient states that she fasted for her labs) Reinforced low cholesterol diet Continue Simvastatin 10 mg QD Will recheck her labs and fasting lipids in 4 months for follow up - advised that her previous numbers were very good so we can forgo redoing her blood test at this time (2) Acquired hypothyroidism: Code(s): E03.9 - Hypothyroidism, unspecified Plan: She is advised that her TSH was still suppressed but free T4 level remained normal on her recent labs Patient is currently clinically euthyroid; TPO Ab was low/negative when previously checked Patient recalled having DEGROOT done twice many years ago for Graves' disease - thinks that it has been over 15 years since her Tx and is wondering if she should be concerned about possible thyroid cancer because of her past Tx; states that her mother also had a similar condition and she thinks have some thyroid cancer at one point Continue Levothyroxine 112 mcg QD Will recheck her TFTs in 4 months for follow up Per request, will also send her for thyroid US for further evaluation (3) GERD without esophagitis: Code(s): K21.9 - Gastro-esophageal reflux disease without esophagitis Plan: Dietary restrictions reinforced (4) Pulmonary nodules/lesions, multiple: Code(s): R91.8 - Other nonspecific abnormal finding of lung field Plan: Chest CTA done back in 06/2022 revealed (+) few bilateral sub-4 mm pulmonary nodules noted, especially in the right upper lobe She was reassured that given her low risks, she does not really need to follow up on these but she remains very concerned due to (+) family Hx - mother from lung cancer She was advised that we can try to get a repeat chest CT after 1 year for follow up if she wants to and she is now requesting to have this done - repeat chest CT ordered She also appears to have some degree of reactive airway disease - relates (+) Hx of smoking although she quit completely many years ago Will have her continue using Albuterol inhaler PRN for now but if her symptoms persist, we may need to consider further work ups for possible ILD (5) Allergic rhinitis: Code(s): J30.9 - Allergic rhinitis, unspecified Qualifiers: Allergic rhinitis trigger: unspecified Allergic rhinitis seasonality: unspecified Qualified Code(s): J30.9 - Allergic rhinitis, unspecified Plan: Continue OTC Loratadine 10 mg QD PRN (6) Varicose veins of bilateral lower extremities with pain: Code(s): I83.813 - Varicose veins of bilateral lower extremities with pain Plan: Follow up with vascular surgery (Dr. 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 She can continue wearing her wrist braces/splints PRN to help her manage her symptoms Will consider referral to orthopedics if her symptoms get worse although advised that this will be mostly for her wrist symptoms and that her finger/hand OA is usually not correctable with surgery (8) Vitamin D deficiency: Code(s): E55.9 - Vitamin D deficiency, unspecified Plan: Continue Vitamin D3 2000 units QD (9) Anxiety: Code(s): F41.9 - Anxiety disorder, unspecified Plan: Continue Lorazepam 0.5 mg 1 to 2 times a day PRN and Sertraline 50 mg QD (10) Overweight (BMI 25.0-29.9): Code(s): E66.3 - Overweight Plan: Reinforced diet/exercise as tolerated/lose weight Plan Follow up in 4 months Orders: Orders US thyroid Today E05.00 - Thyrotoxicosis with diffuse goiter without thyrotoxic crisis or storm CT chest wo IV con Today R91.8 - Other nonspecific abnormal finding of lung field Vitamin D 25-OH Total 4 Months E55.9 - Vitamin D deficiency, unspecified Thyroid Stimulating Hormone 4 Months E03.9 - Hypothyroidism, unspecified Complete Blood Count Auto Diff 4 Months D64.9 - Anemia, unspecified Comprehensive [place]. Panel Fast 4 Months E78.00 - Pure hypercholesterolemia, unspecified Lipid Panel 4 Months E78.00 - Pure hypercholesterolemia, unspecified Free T4 (Free Thyroxine) 4 Months E03.9 - Hypothyroidism, unspecified UA CC w/rflx Micro + Cult 4 Months R30.0 - Dysuria Coding Level of Care Code Est Pt Level 4 (45408) Diagnoses Pure hypercholesterolemia E78.00 Acquired hypothyroidism E03.9 GERD without esophagitis K21.9 Pulmonary nodules/lesions, multiple R91.8 Allergic rhinitis, unspecified seasonality, unspecified trigger J30.9 Allergic rhinitis trigger: unspecified Allergic rhinitis seasonality: unspecified Varicose veins of bilateral lower extremities with pain I83.813 Numbness and tingling in both hands R20.0; R20.2 Vitamin D deficiency E55.9 Anxiety F41.9 Overweight (BMI 25.0-29.9) E66.3
[2023-11-19 09:25] VITALS: BP 120/60; PULSE 73; O2SAT 97; BMI 26.0
== END 2023-11-19 10:14 | disposition home or self-care (01) ==
PROVIDERS: PCP Internal Medicine; Visit Provider Internal Medicine
DX: E78.00 Pure hypercholesterolemia, unspecified (principal); E03.9 Hypothyroidism, unspecified; K21.9 Gastro-esophageal reflux disease without esophagitis; R91.8 Other nonspecific abnormal finding of lung field; J30.9 Allergic rhinitis, unspecified; I83.813 Varicose veins of bilateral lower extremities with pain; R20.0 Anesthesia of skin; R20.2 Paresthesia of skin; E55.9 Vitamin D deficiency, unspecified; F41.9 Anxiety disorder, unspecified; E66.3 Overweight
CPT/HCPCS: 99214

== ENCOUNTER 2023-12-10 08:56 | Outpatient (REF) | payer OTHER, SELFPAY ==
--- NOTE | ~2023-12-10 | US_ITS ---
EXAMINATION: US THYROID CLINICAL INFORMATION: Thyrotoxicosis with diffuse goiter without thyrotoxic crisis or storm. COMPARISON: None available. TECHNIQUE: Linear transducer grayscale and color Doppler examination with attention to the region of the thyroid. FINDINGS: SIZE: Measurements of the thyroid lobes and nodules are given in sagittal, anteroposterior and transverse dimensions respectively. Right Thyroid Lobe: 3.5 x 1.7 x 1.1 cm, volume 3.5 mL. Parenchyma: The gland echotexture is heterogeneous. Thyroid vascularity is normal. Left Thyroid Lobe: 2.6 x 1.0 x 1.0 cm, volume 1.3 mL. Parenchyma: The gland echotexture is heterogeneous. Thyroid vascularity is normal. Isthmus: 0.2 cm in maximum AP dimension. Estimated total number of nodules greater than or equal to 1 cm: 0. Production Pattern Maker nodules are described as follows: 1. Location: Right mid pole. Size: 0.4 x 0.3 x 0.4 cm, volume 0.20 mL. Nodule characteristics: Composition: Cystic(0). ACR TI-RADS total points: 0 ACR TI-RADS category: 1 2. Location: Left mid pole. Size: 0.5 x 0.5 x 0.6 cm, volume 0.16 mL. Nodule characteristics: Composition: Mixed cystic and solid (1). Echogenicity: Cannot be determined (1). Shape: Not taller than wide (0). Margins: Smooth (0). Echogenic Foci: None (0). ACR TI-RADS total points: 2 ACR TI-RADS category: 2 NODES: No lymphadenopathy is seen in the tissue surrounding the thyroid gland. US/US thyroid IMPRESSION: Thyroid nodules do not meet criteria for follow-up. Atrophic thyroid gland. ACR TI-RADS RECOMMENDATION REFERENCE: Ultrasound-guided fine-needle aspiration, followup ultrasound, no further follow up. * TR1 (0 point) and TR2 (2 points): No FNA or follow up. * TR3 (3 points): FNA if more than or equal to 2.5 cm in maximum dimension, followup ultrasound in 1, 3 and 5 years if 1.5 to 2.4 cm in maximum dimension. * TR4 (4-6 points): FNA if more than or equal to 1.5 cm in maximum dimension, followup ultrasound in 1, 2, 3 and 5 years if 1 to 1.4 cm in maximum dimension. * TR5 (more than or equal to 7 points): FNA if more than or equal to 1 cm in maximum dimension, followup ultrasound every year for 5 years if 0.5 to 0.9 cm in maximum dimension. * TR3, TR4 or TR5 nodules that are below the size threshold for followup receive no follow up.
== END 2023-12-10 08:57 | disposition home or self-care (01) ==
LOC: HO.US 08:56
PROVIDERS: PCP Internal Medicine; Visit Provider Internal Medicine
DX: E05.00 Thyrotoxicosis with diffuse goiter without thyrotoxic crisis or storm (principal)
CPT/HCPCS: 76536

== ENCOUNTER 2024-01-14 12:53 | Outpatient (REF) | payer OTHER, SELFPAY ==
--- NOTE | ~2024-01-14 | CT_ITS ---
EXAMINATION: CT CHEST WITHOUT CONTRAST CLINICAL INFORMATION: -1Other nonspecific abnormal finding lung field. -Follow-up pulmonary nodules right upper lobe seen on CTA 06/2022; history of smoking and family history of lung cancer in mother. COMPARISON: None available. TECHNIQUE: Multidetector volumetric CT imaging of the chest was done. Axial MIP volume rendering provided. Sagittal and coronal reformatted images were obtained. This CT examination was performed using dose optimization techniques as appropriate, variously including the following: *Automated exposure control *Adjustment of mA and/or kV according to patient size (this includes techniques or standardized protocols for targeted exams where dose is matched to indication/reason for exam; i.e. extremities or head) *Use of iterative reconstruction technique DLP: 109 mGy-cm Please note, due to [employer] contractual, systems, and staffing issues, a radiologist was not available for review and dictation of this study until 02/22/2024. FINDINGS: PULMONARY NODULES: (As seen on series 5). -2 mm subpleural nodule anterior right upper lobe, image 136. Stable. -2 mm juxtapleural nodule lateral right upper lobe, subpleural, image 163. Stable. -3 mm nodule in the minor fissure, (image 280), stable and consistent with intrapulmonary lymph node. -No new or enlarging nodules detected. LUNGS: -The lungs are clear. There are no consolidations or abnormal groundglass opacities. -There are no effusions. -Small airways are normal. The trachea and central airways are normal. -There are no pleural masses. MEDIASTINUM: -The thyroid appears diminutive or absent. There is no abnormal lymphadenopathy within the mediastinum and hilum. -The aorta is normal in caliber and course with minimal calcification. - Main pulmonary artery is normal in size. -No esophageal abnormality is detected. -The heart size is normal. No pericardial effusion. CORONARY ARTERY CALCIFICATION: None visualized on this study. AXILLA/CHEST WALL: - No masses or definite pathological lymph nodes. -There is minimally prominent axillary and subpectoral nodes, stable from the prior exam and likely reactive. -Largest is in the left high axilla measuring 9 mm in short axis. These are favored to be reactive given stability. -Chest wall otherwise normal. UPPER ABDOMEN: There has been a cholecystectomy. -Tiny hypodensity in segment 2 of the liver measuring 4 mm, most likely a cyst but too small to accurately characterize. Liver otherwise normal. No biliary dilatation. -Remainder of the imaged upper abdominal contents appear normal allowing for noncontrast technique. OSSEOUS STRUCTURES: -No suspicious lytic or blastic bone lesions. -[id number] degenerative spinal changes. CT/CT chest wo IV con IMPRESSION: 1. Stable small lung nodules, none greater than 3 mm. No new or enlarging nodules. These are benign. 2. No active lung disease. 3. Borderline enlarged left and right axillary lymph nodes, stable from the prior exam and hence reactive in nature. 4. Cholecystectomy. As per Fleischner guidelines, in a high-risk patient, one year follow-up recommended. A low risk patient, no follow-up recommended. Electronically signed by: Nelson Desouza MD 02/22/2024 05:17 PM EDT
== END 2024-01-14 12:54 | disposition home or self-care (01) ==
LOC: HO.CT 12:53
PROVIDERS: PCP Internal Medicine; Visit Provider Internal Medicine
DX: R91.8 Other nonspecific abnormal finding of lung field (principal)
CPT/HCPCS: 71250

== ENCOUNTER → 2024-01-14 12:54 | Outpatient (BNV) | payer OTHER, SELFPAY | PROVIDERS: PCP Internal Medicine; Visit Provider Radiology Diagnostic Radiology | DX: R91.8 Other nonspecific abnormal finding of lung field (principal) | CPT/HCPCS: 71250 ==

== ENCOUNTER 2024-03-14 09:43 | Emergency (ER) | payer OTHER, SELFPAY ==
--- NOTE | ~2024-03-14 | CT_ITS ---
EXAMINATION: CT ANGIOGRAM CHEST CLINICAL INFORMATION: Elevated D Dimer. PE? COMPARISON: Chest radiograph dated March 14, 2024. CTA chest dated June 14, 2022. TECHNIQUE: Multiple axial images were obtained through the chest after the administration of 50 mL of Omnipaque 350 intravenous contrast. Extensive vascular post-processing including two-dimensional and three-dimensional reformatted images were created and reviewed on an independent workstation. This CT examination was performed using dose optimization techniques as appropriate, variously including the following: *Automated exposure control *Adjustment of mA and/or kV according to patient size (this includes techniques or standardized protocols for targeted exams where dose is matched to indication/reason for exam; i.e. extremities or head) *Use of iterative reconstruction technique DLP: 220 mGy-cm FINDINGS: QUALITY OF STUDY/CONTRAST BOLUS: Satisfactory. PULMONARY ARTERIES: No central or segmental pulmonary emboli. THORACIC AORTA: No aneurysm or dissection. LUNG: No dense consolidation. No significant groundglass disease. The central airways are patent. PLEURA: No pleural effusion or pneumothorax. MEDIASTINUM: Normal heart size. Coronary artery calcifications are mild. No pericardial effusion. No hilar or mediastinal lymphadenopathy. No evidence of septal bowing or right heart strain. CHEST WALL/AXILLA: No axillary lymphadenopathy. OSSEOUS STRUCTURES: No acute or suspicious osseous abnormality. UPPER ABDOMEN: Cholecystectomy. No reflux of contrast into the hepatic veins to suggest elevated right heart pressures. CT/CT angio chest PE protocol IMPRESSION: 1. No evidence of pulmonary embolism or increased right-sided heart pressures. 2. The lungs are clear. Pleural spaces are clear. No pneumothorax. Fleischner guidelines were followed. Electronically signed by: Nathaniel Mathis DO 03/14/2024 05:02 PM EDT
--- NOTE | ~2024-03-14 | XR_ITS ---
EXAMINATION: XR CHEST CLINICAL INFORMATION: Chest pain COMPARISON: X-ray 06/13/2022 TECHNIQUE: 2 views of the chest were obtained. FINDINGS: The cardiomediastinal silhouette is within normal limits. The lungs are well expanded. There is no focal consolidation, edema, or effusion. No pneumothorax. No acute osseous abnormality. XR/XR chest 2V IMPRESSION: No acute pulmonary process. Electronically signed by: Dilan Min MD 03/14/2024 01:36 PM EDT
--- NOTE | ~2024-03-14 | CT_ITS ---
EXAMINATION: CT ABDOMEN AND PELVIS WITH CONTRAST CLINICAL INFORMATION: Left flank pain. COMPARISON: Abdominal ultrasound dated December 27, 2015. TECHNIQUE: Multidetector volumetric images were obtained from the superior aspect of the liver through the pubic symphysis following administration 85 mL of Omnipaque 350 intravenous contrast. Sagittal and coronal reformatted images were obtained on the technologist's workstation. Oral contrast: No This CT examination was performed using dose optimization techniques as appropriate, variously including the following: *Automated exposure control *Adjustment of mA and/or kV according to patient size (this includes techniques or standardized protocols for targeted exams where dose is matched to indication/reason for exam; i.e. extremities or head) *Use of iterative reconstruction technique DLP: 661 mGy-cm FINDINGS: LUNG BASES: The visualized lung bases are unremarkable. No pleural effusion. The heart is normal in size. No pericardial effusion. LIVER, GALLBLADDER, AND BILIARY TREE: The liver is normal in size, shape, and attenuation. No biliary ductal dilatation is present. There are 2 low attenuation subcentimeter lesions one within the right lobe, one within the left lobe, which likely represent small cysts. The gallbladder is surgically absent. PANCREAS: Unremarkable. SPLEEN: Unremarkable. ADRENAL GLANDS: Unremarkable. KIDNEYS AND URETERS: The kidneys are normal in size, shape, and attenuation. No hydronephrosis, hydroureter, or calculi seen. No perinephric stranding. BLADDER: Unremarkable. GASTROINTESTINAL TRACT: The small and large bowel are normal in caliber. There is mild sigmoid colon diverticulosis. There is no evidence of acute diverticulitis. The appendix is unremarkable. ABDOMINAL WALL: No significant hernia is appreciated. LYMPH NODES: No lymphadenopathy. VASCULAR: No abdominal aortic aneurysm. Minimal atherosclerotic disease. PELVIC VISCERA: The uterus is grossly normal in appearance. There is a fluid attenuating tubular structure within the right adnexal region. Hydrosalpinx is not excluded. Further evaluation with pelvic ultrasound is recommended. OSSEOUS STRUCTURES: There is degenerative disc disease at L4-5 and L5-S1. No acute osseous abnormality. CT/CT abdomen pelvis w IV con IMPRESSION: The kidneys are normal in size shape and attenuation. No hydronephrosis, hydroureter, or calculi. Mild sigmoid colon diverticulosis. No evidence of acute diverticulitis. There is a fluid attenuating tubular structure within the right adnexal region. Hydrosalpinx is not excluded. Further evaluation with pelvic ultrasound is recommended. Fleischner guidelines were followed. Electronically signed by: Nathaniel Mathis DO 03/14/2024 04:00 PM EDT RP
--- NOTE | ~2024-03-14 | XR_ITS ---
EXAMINATION: XR LUMBOSACRAL SPINE CLINICAL INFORMATION: Back pain COMPARISON: None available. TECHNIQUE: Three views of the lumbosacral spine. FINDINGS: Mild dextroconvex curvature at the thoracolumbar junction. The vertebral body sagittal alignment is maintained. Vertebral body heights are maintained. No evidence of acute fracture. Lumbar spondylosis, more prominent changes of moderate-severe L4-5, L5-S1 disc degeneration with disc height loss, end plate osteophytes. Multilevel facet degeneration. Surgical clips in the right upper quadrant. XR/XR lumbar spine 2-3V IMPRESSION: Moderate-severe L4-5, L5-S1 disc degeneration. No radiographic evidence of acute fracture. Electronically signed by: Dilan Min MD 03/14/2024 01:56 PM EDT
[2024-03-14 10:00] VITALS: BP 112/63; PULSE 82; RESP 16; TEMP 36.8; O2SAT 98; BMI 26.7
--- NOTE | 2024-03-14 11:44 | ECG_ITS ---
Test Reason : PLEURISY Blood Pressure : / mmHG Vent. Rate : 066 BPM Atrial Rate : 066 BPM P-R Int : 136 ms QRS Dur : 074 ms QT Int : 382 ms P-R-T Axes : 062 047 051 degrees QTc Int : 400 ms Normal sinus rhythm Cannot rule out Anterior infarct , age undetermined Abnormal ECG When compared with ECG of 13-JUN-2022 21:03, No significant change was found Referred By: Daniel Valencia Electronically Signed By:VALENTINA DAY
--- NOTE | 2024-03-14 12:03 | ED.GENADULT ---
HPI - General Adult General Chief complaint: Back Pain/Injury Stated complaint: back pain Time Seen by Provider: 03/14/24 11:17 Source: patient Mode of arrival: ambulatory Limitations: no limitations History of Present Illness ED Provider: Daniel Valencia PA-C HPI narrative: 58 yold female with pmh of GERD, hypothyroidism, vitamin D, Colits, presents to ED for left flank left lower rib pain since Sunday that is worse on movement. Patient also states mild pleurisy. Patient denies any recent trauma. Patient admits to working in the [employer] and lifting 30 lb of bucket every day. Patient denies any blunt trauma. Patient denies any dysuria, hematuria, fever, chills, abdominal pain, nausea, vomiting. Patient denies any low back pain or pain in lower extremities. Patient states no weakness or dizziness. Related Data Previous Rx's ?Medication ?Instructions ?Recorded cholecalciferol (vitamin D3) 50 50 mcg PO DAILY 90 days #90 caps 06/23/23 mcg (2,000 unit) capsule albuterol sulfate 90 mcg/actuation 2 puff inhalation Q6H PRN 07/16/23 aerosol inhaler shortness of breath or wheezing #8.5 grams levothyroxine 112 mcg tablet 112 mcg PO QAM 90 days #90 tabs 09/10/23 (Euthyrox) simvastatin 10 mg tablet 10 mg PO BEDTIME 90 days #90 tabs 09/10/23 tramadol 50 mg tablet 50 mg PO Q8H PRN pain 3 days #9 03/14/24 tabs Allergies Allergy/AdvReac Type Severity Reaction Status Date / Time amoxicillin [Augmentin] Allergy Severe hives, lip Verified 03/14/24 10:04 swelling clavulanic acid [Augmentin] Allergy Severe hives,lip Verified 03/14/24 10:04 swelling ibuprofen [Ibuprofen] Allergy Severe DIFF Verified 03/14/24 10:04 BREATHING prednisone [Prednisone] Allergy Severe RASH, Verified 03/14/24 10:04 rash, SOB Sulfa (Sulfonamide AdvReac Intermediate ? rash, Verified 03/14/24 10:04 Antibiotics) headaches ? Review of Systems Review of Systems: Flank left lower rib pain with mild pleurisy. Pain on range of motion Yes all other systems are reviewed and are negative PMFSH Past Medical History Medical History Vitamin D deficiency Varicose veins of bilateral lower extremities with pain Right hip pain Overweight (BMI 25.0-29.9) Anxiety Allergic rhinitis GERD without esophagitis Acquired hypothyroidism Exertional dyspnea Pure hypercholesterolemia Palpitations Surgical History History of bone graft History of colonoscopy History of laparoscopic cholecystectomy Family History Family History Father Diabetes Mother Cancer Social History Social History Housing: House Housing Other:: mobile home Alcohol intake: current Alcohol intake frequency: a few times a month Alcohol type: beer and wine Patient Tobacco Use Status: Former Tobacco user e-Cigarette/Vaping Use: Never Used Second Hand Smoke Exposure: Yes Substance Use Type: Marijuana Advance Directives: Yes Advance Directives Information Provided: Yes Advance Directives on File: No Do you have a plan to hurt others: No Plan Patient : No service: No Current occupational status: employed Current occupation: [employer] Cognitive needs: No Hearing needs: No Vision needs: Yes (Glasses) Physical Exam ED Vital Signs: Vital Signs - 24 hr 03/14/24 10:00 03/14/24 16:43 Temperature 98.2 F 97.3 F Pulse Rate 82 61 Respiratory Rate 16 16 Blood Pressure 112/63 129/67 Pulse Oximetry 98 100 Oxygen Delivery Method Room Air Room Air BMI result Body Mass Index 26.7 Const General: cooperative, healthy appearing, comfortable, no acute distress, well developed, alert, awake and Physically active Orientation/consciousness: patient oriented x3 HENMT Head: Yes normal to inspection, Yes No palpable skull fracture present, Yes normocephalic, Yes atraumatic and No abrasion Eyes General: appearance normal, both eyes and all related structures Neck Neck: Yes normal visual inspection, Yes full ROM, Yes no lymphadenopathy, Yes no meningeal signs, Yes trachea midline, Yes supple, No anterior neck swelling and No tender Chest Chest palpation & inspection: normal inspection of the chest and normal palpation of entire chest wall Resp Effort & Inspection: normal respiratory effort and able to speak in complete sentences Auscultation: clear to auscultation bilaterally Cardio Jugular venous distension: no JVD Heart sounds: S1 normal heart sound present and S2 normal heart sound present GI Inspection: Yes normal to inspection Palpation (GI): Soft to palpation, not firm, nontender, no guarding and not rigid General: No CVA tenderness and Yes no CVA tenderness Back/Spine/Pelvis Other: Negative spine tenderness Back: no CVA tenderness, No CVA tenderness and back tenderness (Muscular latissimus/dorsi paraspinous tendernss. ) Back/spine/pelvis image: 1. Positive for tenderness on palpation. Positive for pain on range of motion. Negative for crepitus, ecchymosis, deformity, erythema, warmth, hotness, or coolness. Skin General skin exam: no rashes or lesions noted, elasticity normal and turgor normal Neuro General: patient oriented x3, gait normal, tone normal, moves all extremities, Normal light touch and pain sensation, no meningeal signs, no focal motor deficits, CN's II-XI intact bilaterally and normal sensation to monofilament Extrem Other: Bilateral lower extremity negative for swelling, pitting edema, or calf tenderness. General: Yes normal to inspection and Yes full ROM Psych Appearance: grossly normal, well kempt and not disheveled Medications Administered Discontinued Medications Generic Name Dose Route Start Last Admin Trade Name Freq PRN Reason Stop Dose Admin Iohexol 85 ml 03/14/24 14:12 03/14/24 14:13 Iohexol 350 Mg/Ml 75 Ml Infus..Btl IV 03/14/24 14:13 85 ml ONCE ONE Administration Tramadol HCl 50 mg 03/14/24 17:30 03/14/24 17:43 Tramadol Hcl 50 Mg Tablet PO 03/14/24 17:31 50 mg ONCE ONE Administration Medical Decision Making Medical Decision Making [facility] Narrative: 58-year-old female presents to ED for left flank left lower rib back pain that is worse on movement since Sunday. Patient was seen in urgent Care had normal urine exam. Patient states pain is still present with range of motion. Due to significant allergy to medication patient is only able to take Tylenol and muscle relaxer. Patient states slight pleurisy. Patient denies any recent long travel, surgery, chest pain, leg swelling, or calf pain. 6:28pm: Patient had elevated D-dimer so chest CTA was ordered to rule out PE. Two troponins negative. Patient also had abdominal CT scan due to left flank pain. Abdominal CT scan shows possible right fluid tubular structure in right adnexal. Patient has no abdominal pain. Patient is not sexually active and has no history of STD. Unlikely PID hydrosalpinx. Patient informed to follow-up with primary care provider for outpatient ultrasound. Presently no indication for ultrasound. Not suspecting tubo-ovarian abscess or ovarian torsion. Not suspect an epidural abscess or cauda equinus syndrome. Muscular flank pain. Patient given tramadol pain relief. Differential Diagnosis Differential Diagnoses: The differential diagnosis associated with the presentation includes (Kidney stones, UTI, PE, muscular back pain, pneumonia, lumbar radiculopathy) Admission/Observation Consideration of admission/observation: Escalation of care including admission/observation considered Lab Data MDM Lab Attestation statement: I reviewed the patient's lab results. 03/14/24 12:06 03/14/24 12:06 Labs: Lab Results 03/14/24 03/14/24 Range/Units 12:06 16:51 WBC 8.7 (4.8-10.8) X10*3/uL RBC 4.65 (4.20-5.50) X10*6/uL Hgb 14.0 (12.0-16.0) g/dl Hct 40.7 (37.0-47.0) % MCV 87.5 (80.0-98.0) fL MCH 30.1 (27.0-33.0) pg MCHC 34.4 (31.0-35.0) g/dl RDW 13.3 (11.0-16.0) % Plt Count 222 (160-400) X10*3/uL MPV 9.3 L (9.4-12.3) fL Immature Gran % (Auto) 0.2 (0.0-0.4) % Neut % (Auto) 65.9 (45-73) % Lymph % (Auto) 25.5 (20-40) % Hill % (Auto) 7.1 (2-11) % Eos % (Auto) 1.0 (0-4) % Baso % (Auto) 0.3 (0-2) % Lymph # (Auto) 2.2 (1.2-4.9) X10*3/uL Hill # (Auto) 0.6 (0.1-1.2) X10*3/uL Eos # (Auto) 0.1 (0.0-0.4) X10*3/uL Baso # (Auto) 0.0 (0.0-0.2) X10*3/uL Abs Immat Gran (auto) 0.02 (0.00-0.03) X10*3/uL Absolute Neuts (auto) 5.7 (2.0-8.3) x10*3/uL Absolute Nucleated RBC 0.000 (0.0-0.012) X10*3/uL Nucleated RBC % (auto) 0.0 (0.0-0.2) /100WBC PT 10.8 L (11.1-13.3) SEC INR 0.9 (0.9-1.1) APTT 27.9 (26.0-36.8) SEC D-Dimer High Sensitivty 574 NG/ML Sodium 142 (135-145) mmol/L Potassium 4.1 (3.3-5.1) mmol/L Chloride 105 (96-108) mmol/L Carbon Dioxide 28 (22-29) mmol/L Anion Gap 13 (12-20) BUN 12 (9-16) mg/dL Creatinine 0.65 (0.5-1.4) mg/dL Estim Creat Clear Calc 82.2 Estimated GFR > 60 Random Glucose 81 (60-115) mg/dL Calcium 10.0 (8.4-10.2) mg/dL Total Bilirubin 0.7 (0.0-1.0) mg/dL AST 14 (5-31) U/L ALT 9 (0-31) U/L Alkaline Phosphatase 81 (39-117) U/L Troponin I High Sens < 2.7 < 2.7 (<3.5-17.0) ng/L Total Protein 7.0 (6.5-8.0) g/dL Albumin 4.0 (3.5-5.0) g/dL Urine Color Yellow Urine Appearance Clear Urine pH 7.5 (5.0-9.0) Ur Specific [place] <= 1.005 (1.005-1.025) Urine Protein Negative (Neg-Trace) mg/dL Urine Glucose (UA) Negative (Negative) mg/dL Urine Ketones Negative (Negative) mg/dL Urine Blood Negative (Negative) Urine Nitrite Negative (Negative) Ur Leukocyte Esterase Negative (Negative) Independent Interpretation I performed an independent interpretation of an: EKG (Normal sinus rhythm. Negative STEMI), Plain X-Ray and CT Scan Radiology Impression Discussion of test interpretation with radiology: I have reviewed the radiologist's reading. Independent Historian Clinical information obtained from an independent historian. History obtained from or confirmed by: Other (Patient) External Record Review External record reviewed: Other (Prior visits) Prescription Management I considered prescription management with: Pain Medication Discharge Plan Discharge Clinical Impression: Lumbar radiculopathy, Back strain Patient Disposition: Home, Self-Care Instructions: Low Back Strain (ED), Lumbar Radiculopathy (ED), R.I.C.E. Treatment (ED) Additional Instructions: Recommend follow-up with primary care provider. Return to the ED immediately for any worsening flank pain, dysuria, hematuria, nausea, vomiting, chest pain, shortness of breath, abdominal pain, dysuria, hematuria, urinary/bowel incontinence, weakness/paralysis of lower extremities, fever, chills, or any other concerning symptoms. Labs were normal. EKG troponins chest x-ray normal. Continue taking muscle relaxer and Tylenol as needed for pain CT/CT angio chest PE protocol IMPRESSION: 1. No evidence of pulmonary embolism or increased right-sided heart pressures. 2. The lungs are clear. Pleural spaces are clear. No pneumothorax. Fleischner guidelines were followed. Electronically signed by: Nathaniel Mathis DO 03/14/2024 05:[address]/CT abdomen pelvis w IV con IMPRESSION: The kidneys are normal in size shape and attenuation. No hydronephrosis, hydroureter, or calculi. Mild sigmoid colon diverticulosis. No evidence of acute diverticulitis. There is a fluid attenuating tubular structure within the right adnexal region. Hydrosalpinx is not excluded. Further evaluation with pelvic ultrasound is recommended. Fleischner guidelines were followed. Electronically signed by: Nathaniel Mathis DO 03/14/2024 04:00 PM EDT RP XR/XR lumbar spine 2-3V IMPRESSION: Moderate-severe L4-5, L5-S1 disc degeneration. No radiographic evidence of acute fracture. Electronically signed by: Dilan Min MD 03/14/2024 01:56 PM EDT RP Prescriptions: New tramadol 50 mg tablet 50 mg PO Q8H PRN (Reason: pain) 3 Days Qty: 9 0RF No Action cholecalciferol (vitamin D3) 50 mcg (2,000 unit) capsule 50 mcg PO DAILY 90 Days Qty: 90 3RF levothyroxine [Euthyrox] 112 mcg tablet 112 mcg PO QAM 90 Days Qty: 90 3RF simvastatin 10 mg tablet 10 mg PO BEDTIME 90 Days Qty: 90 3RF albuterol sulfate 90 mcg/actuation HFA aerosol inhaler 2 puff inhalation Q6H PRN (Reason: shortness of breath or wheezing) Qty: 8.5 2RF Stand Alone Forms: Work/School Release Discharge Date/Time: 03/14/24 18:44 Print Language: [place] Citizen
[2024-03-14 12:12] LABS: MANUAL DIFF FLAG NO
[2024-03-14 12:14] LABS: Basophils Percent Auto 0.3 % (0-2); Eosinophils Absolute Auto 0.1 X10*3/uL (0.0-0.4); Hematocrit 40.7 % (37.0-47.0); Imm Gran Abs Auto 0.02 X10*3/uL (0.00-0.03); Imm Gran Pct Auto 0.2 % (0.0-0.4); Lymphocytes Absolute Auto 2.2 X10*3/uL (1.2-4.9); Lymphocytes Percent Auto 25.5 % (20-40); Mean Corpuscular HGB Conc 34.4 g/dl (31.0-35.0); Mean Corpuscular Hemoglobin 30.1 pg (27.0-33.0); Mean Corpuscular Volume 87.5 fL (80.0-98.0); Mean Platelet Volume 9.3 fL (9.4-12.3); Monocytes Absolute Auto 0.6 X10*3/uL (0.1-1.2); Monocytes Percent Auto 7.1 % (2-11); Neutrophils Absolute Auto 5.7 x10*3/uL (2.0-8.3); Neutrophils Percent Auto 65.9 % (45-73); Platelet Count 222 X10*3/uL (160-400); Red Blood Count 4.65 X10*6/uL (4.20-5.50); Red Cell Distribution Width 13.3 % (11.0-16.0); White Blood Count 8.7 X10*3/uL (4.8-10.8)
[2024-03-14 12:15] LABS: Appearance Urine Clear; Color Urine Yellow; Glucose Urine UA Negative (Negative); Leukocyte Esterase Urine Negative (Negative); Nitrite Urine Negative (Negative); PH 7.5 (5.0-9.0); Specific Gravity - Urine <= 1.005 (1.005-1.025); Urine Blood Negative (Negative); Urine Ketones Negative (Negative); Urine Protein Negative (Neg-Trace)
[2024-03-14 12:22] LABS: INTERNATIONAL NORM RATIO 0.9 (0.9-1.1); Prothrombin Time 10.8 SEC (11.1-13.3)
[2024-03-14 12:24] LABS: D Dimer High Sensitivity 574 NG/ML
[2024-03-14 12:25] LABS: Partial Thromboplastin Time 27.9 SEC (26.0-36.8)
[2024-03-14 12:29] LABS: Alanine Aminotransferase 9 U/L (0-31); Alkaline Phosphatase 81 U/L (39-117); Anion Gap 13 (12-20); Aspartate Amino Transferase 14 U/L (5-31); Bilirubin Total 0.7 mg/dL (0.0-1.0); Blood Urea Nitrogen 12 mg/dL (9-16); Carbon Dioxide 28 mmol/L (22-29); Chloride 105 mmol/L (96-108); Creatinine Clr Calc Pharmacy 82.2; Estimated Glomerular Filt Rate > 60; Glucose Random 81 mg/dL (60-115); Potassium 4.1 mmol/L (3.3-5.1); Sodium 142 mmol/L (135-145)
[2024-03-14 12:38] LABS: Troponin-I High Sensitivity < 2.7 ng/L (<3.5-17.0)
[2024-03-14] MEDS: iohexoL 350 MG/ML 75 ML INFUS..BTL 85 ML IV (14:13)
[2024-03-14 16:43] VITALS: BP 129/67; PULSE 61; RESP 16; TEMP 36.3; O2SAT 100
[2024-03-14] MEDS: traMADoL HCL 50 MG TABLET PO (17:43)
[2024-03-14 17:51] LABS: Troponin-I High Sensitivity < 2.7 ng/L (<3.5-17.0)
[2024-03-14 18:43] VITALS: BP 128/78; PULSE 68; RESP 16; TEMP 36.6; O2SAT 95
== END 2024-03-14 18:44 | disposition home or self-care (01) ==
PROVIDERS: Physician Assistant; Emergency Provider Emergency Medicine; PCP Internal Medicine
DX: M54.16 Radiculopathy, lumbar region (principal); S39.012A Strain of muscle, fascia and tendon of lower back, initial encounter; X50.0XXA Overexertion from strenuous movement or load, initial encounter; R10.9 Unspecified abdominal pain; E78.00 Pure hypercholesterolemia, unspecified; F12.90 Cannabis use, unspecified, uncomplicated; Z87.891 Personal history of nicotine dependence; Y93.89 Activity, other specified; Y92.59 Other trade areas as the place of occurrence of the external cause; Y99.0 Civilian activity done for income or pay
CPT/HCPCS: 36415; 71046; 71275; 72100; 74177; 80053; 81003; 84484; 85025; 85379; 85610; 85730; 93005; 99284; 99285; Q9967

== ENCOUNTER 2024-03-31 08:59 | Outpatient (AMB) | payer OTHER, SELFPAY ==
[2024-03-31 09:03] VITALS: BP 112/64; PULSE 69; O2SAT 99; BMI 26.4
--- NOTE | 2024-03-31 09:03 | MHC.PC.OV ---
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 rash, headaches ? Medication List - Last Reconciled 03/31/24 by Goyo Wilson MD albuterol sulfate 90 mcg/actuation 2 puffs inhalation Q6H PRN cholecalciferol (vitamin D3) 50 mcg PO DAILY 90 days levothyroxine (Euthyrox) 112 mcg PO QAM 90 days simvastatin 10 mg PO BEDTIME 90 days tramadol 50 mg PO Q8H PRN 3 days Tobacco use date assessed: 03/31/24 Dental Screening Dental Screen Date: 03/31/24 Did you have a dental visit in the last 12 months?: Yes Did you have a dental problem in the last 6 months where you did not have access to dental care?: No Was dental information given to patient?: Patient has dentist HPI hyperlipidema, hypothyroidism, pulmonary nodules HPI Details Patient comes in today for her follow up visit She went to the ER about 2 to 3 weeks ago for persistent/increasing left flank and left lower rib pain Work ups done at the ER were mostly negative She did undergo a chest CTA due to an elevated d-dimer level on her initial labs - CTA was negative for pulmonary embolism Abdominal and pelvic CT done was also negative although there was a fluid attenuating tubular structure within the right adnexal region that was seen incidentally - hydrosalpinx was not excluded and further evaluation with pelvic ultrasound was recommended States that she was reassured then that her symptoms were mostly due to musculoskeletal strain and she was eventually discharged home She currently still has some lingering pain over her left flank area but states that the intensity of the pain has decreased a lot lately She would also like to know how her recent chest CT for her pulmonary nodules and her thyroid US for her goiter came out She denies any headaches or dizziness Denies any chest pains, no increased SOB; states that she still feels some on and off palpitations occasionally but these seem to have subsided a lot since she stopped drinking her usual energy water that she has been drinking regularly for a while No nausea/vomiting, no abdominal pain No change in bowel habits noted Needs her Vitamin D3 Rx refilled She did not get any more follow up labs done recently as she thought that the ER did all of the labs that she needed lately [facility] Medical History Vitamin D deficiency Varicose veins of bilateral lower extremities with pain Right hip pain Overweight (BMI 25.0-29.9) Anxiety Allergic rhinitis GERD without esophagitis Acquired hypothyroidism Exertional dyspnea Pure hypercholesterolemia Palpitations Surgical History History of bone graft History of colonoscopy History of laparoscopic cholecystectomy Family History Father Diabetes Mother Cancer Social History Housing: House Housing Other:: mobile home Alcohol intake: current Alcohol intake frequency: a few times a month Alcohol type: beer and wine Patient Tobacco Use Status: Former Tobacco user e-Cigarette/Vaping Use: Never Used Second Hand Smoke Exposure: Yes Substance Use Type: Marijuana service: No Current occupational status: employed 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 1. Little interest or pleasure in doing things: not at all 2. Feeling down, depressed, or hopeless: not at all 3. Trouble falling or staying asleep, or sleeping too much: not at all 4. Feeling tired or having little energy: not at all 5. Poor appetite or overeating: not at all 6. Feeling bad about yourself - or that you are a failure or have let yourself or your family down: not at all 7. Trouble concentrating on things, such as reading the newspaper or watching television: not at all 8. Moving or speaking so slowly that other people could have noticed. Or the opposite - being so fidgety or restless that you have been moving around a lot more than usual: not at all 9. Thoughts that you would be better off or of hurting yourself in some way: not at all Total score: 0 Depression Screening Interpretation: Negative Depression Screening Done: Yes 61702 - PHQ-9 Billing: Yes Source: Developed by Drs. Miakel Leal, Donna Diez, Smith Lu and colleagues, with an educational hamilton from [employer]. Thrive Questionnaire Date Thrive assessed: 03/31/24 I am a: Patient What is your living situation today?: I have a steady place to live Within the past 12 months, did the food you bought not last and you didn't have the money to get more?: Never true Within the past 12 months, did you worry whether your food would run out before you got money to buy more?: Never true Do you have trouble paying for medicines?: No Do you have trouble getting transportation to medical appointments?: No Do you have trouble paying your heating and electricity bill?: No Do you have trouble taking care of your child, family member or friend?: No Do you have trouble with day-to-day activities such as bathing, preparing meals, shopping, managing finances, etc.?: No Are you currently unemployed and looking for a job?: No Are you interested in more education?: No Please select the resources that you would like help with: None Currently or been in a relationship where the following occur: No concerns reported THRIVE Score: 0 AUDIT C Alcohol Use Questionnaire (AUDIT-C) 1. How often do you have a drink containing alcohol?: Monthly or less 2. How many drinks containing alcohol do you have on a typical day when you are drinking?: 1 or 2 3. How often do you have six or more drinks on one occasion?: Never Total Score: 1 Score Reviewed/Action Taken: Yes CHANTAL-7 AMB Questionnaire CHANTAL-7 Date CHANTAL - 7 assessed: 03/31/24 Feeling nervous, anxious, or on edge: 0 = Not at all Not being able to stop or control worryin = Not at all Worrying too much about different things: 0 = Not at all Trouble relaxin = Not at all Being so restless that it is hard to sit still: 0 = Not at all Becoming easily annoyed or irritable: 0 = Not at all Feeling afraid as if something awful might happen: 0 = Not at all Total CHANTAL-7 score (0-4 normal; 5-9 mild; 10-14 moderate; 15-21 severe): 0 Source: Developed by Drs. Maikel Leal, Donna Diez, Smith Lu and colleagues, with an educational hamilton from [employer]. Review of Systems Const Denies chills, Denies fatigue, Denies fever(s) and Denies headache(s) ENT Denies dysphagia, Denies dizziness, Denies otalgia, Denies headache(s), Denies neck pain, Denies odynophagia and Denies sore throat Card Denies chest pain, Denies palpitations and Denies dyspnea Resp Denies chest congestion, Denies cough and Denies dyspnea GI Denies abdominal pain, Denies constipation, Denies dysphagia, Denies diarrhea, Denies nausea, Denies odynophagia and Denies vomiting Denies difficulty voiding, Denies nocturia, Denies dysuria and Denies urinary urgency Musc Details: (+) recurrent mild pain over the left flank area and on the left lower ribs posterolaterally Reports arthralgias (on and off over both wrists), Denies neck pain, Reports numbness (recurrent in both hands, especially in the morning when she wakes up) and Reports tingling (frequent, in both hands) Skin/Breast Denies rash Neuro Denies dizziness, Denies headache(s), Reports numbness (recurrent in both hands, especially in the morning when she wakes up), Reports tingling (frequent, in both hands) and Reports paresthesias (recurrent in both hands) Endo Denies fatigue and Denies palpitations Physical exam (Primary Care) Vital Signs: Last Vital Signs Pulse 69 03/31/24 09:03 BP 112/64 03/31/24 09:03 Pulse Ox 99 03/31/24 09:03 Oxygen Delivery Method Room Air 03/31/24 09:03 BMI result Body Mass Index 26.4 Tobacco/Smoking Status: Tobacco use Status Tobacco use date assessed 03/31/24 03/31/24 09:09 Patient Tobacco Use Status Former Tobacco user 03/31/24 09:09 e-Cigarette/Vaping Use Never Used 03/31/24 09:09 PHQ-9: PHQ-9 Score PHQ-9: Total score 0 03/31/24 09:09 Depression Screening Interpretation: Negative Thrive Assessment: Date of Thrive Assessment Date Thrive assessed 03/31/24 03/31/24 09:09 Currently or been in a relationship where the following occur: No concerns reported Const General: no acute distress and alert HENMT Ears: TM's normal bilaterally and EAC's normal Throat: Yes posterior oropharynx normal and Yes tonsils normal Neck Neck: Yes no lymphadenopathy and Yes supple Thyroid: Thyroid normal Resp Auscultation: clear to auscultation bilaterally, no rales and no wheezes Cardio Rate: regular rate Rhythm: regular rhythm Heart sounds: no murmurs GI Palpation (GI): Soft to palpation and nontender Auscultation: normal bowel sounds Back/Spine/Pelvis Other: (+) mild tenderness on palpation over the left flank and over the lowermost ribs posterolaterally Cervical Spine: No Cervical spine tenderness Thoracic/Lumbar Spine: No lumbar spinal tenderness Skin Rashes: no rashes Extrem General: Yes no clubbing, cyanosis or edema Right upper extremity: Extremity exam: right hand Details: tenderness (over the interphalangeal joints of the fingers, especially the DIP) Left upper extremity: hand Details: tenderness (over the interphalangeal joints of the fingers, especially the DIP) Results Reviewed Results Reviewed: Laboratory Tests 03/14/24 03/14/24 12:06 16:51 WBC 8.7 Hgb 14.0 Hct 40.7 Plt Count 222 Sodium 142 Potassium 4.1 Creatinine 0.65 Estimated GFR > 60 Random Glucose 81 Calcium 10.0 AST 14 ALT 9 Troponin I High Sens < 2.7 Assessment and Plan Assessment & Plan (1) Palpitations: Code(s): R00.2 - Palpitations Plan: Have advised patient that her energy drinks , including Energy water were likely contributing to her frequent palpitations previously and stopping these should help alleviate, if not completely resolve her symptoms If her palpitations continue to recur often from this point on, will likely need to send her for Holter monitoring for further evaluation Her EKG done at the ER when she presented there a couple of weeks ago on 03/14/2024 came out normal - NSR (2) Aortic valve calcification: Code(s): I35.9 - Nonrheumatic aortic valve disorder, unspecified Plan: This was seen (mild) on her echocardiogram done back in 2019 With her recurrent palpitations, will have her get a repeat echocardiogram for follow up She also had some non-specific color doppler findings at the time - will recheck this to see if these persist and if they do, may need further evaluation (3) Right pelvic adnexal fluid collection: Code(s): R19.8 - Other specified symptoms and signs involving the digestive system and abdomen Plan: This was seen incidentally on her abdominal/pelvic CT done at the ER a couple of weeks ago and need further clarification Will send her for a pelvic US for further evaluation (4) Acute lumbar myofascial strain: Comment: on the left side Code(s): S39.012A - Strain of muscle, fascia and tendon of lower back, initial encounter Qualifiers: Encounter type: sequela Qualified Code(s): S39.012S - Strain of muscle, fascia and tendon of lower back, sequela Plan: Work ups done at the ER a couple of weeks ago were all unrevealing and she was reassured that her symptoms are most likely just due to musculoskeletal strain (5) Pure hypercholesterolemia: Code(s): E78.00 - Pure hypercholesterolemia, unspecified Plan: Results of her labs done at the ER a couple of weeks ago reviewed and discussed with patient but advised patient that these were again non-fasting labs and did not include her cholesterol levels (the last time her cholesterol levels were checked was back in July 2023 as she also missed doing fasting labs at her last appointment) Reinforced low cholesterol diet Continue Simvastatin 10 mg QD Will recheck her labs and fasting lipids in 4 months for follow up - advised that she needs to make sure her fasting cholesterol levels are included when she goes for her labs in a few months as it will be over a year by then when her cholesterol levels were last checked (her previous orders are updated and she will just use these orders for her next lab draw) (6) Acquired hypothyroidism: Code(s): E03.9 - Hypothyroidism, unspecified Plan: Her TSH was still suppressed but free T4 level remained normal when her TFTs were last checked in July 2023 Patient is currently clinically euthyroid; TPO Ab was low/negative when previously checked Patient recalled having DEGROOT done twice many years ago for Graves' disease and requested to have a thyroid US done previously Have reassured her that they thyroid US done in December 2023 revealed (+) thyroid nodules that do not meet criteria for follow-up and an atrophic thyroid gland - findings are benign Continue Levothyroxine 112 mcg QD Will recheck her TFTs in 4 months for follow up (7) GERD without esophagitis: Code(s): K21.9 - Gastro-esophageal reflux disease without esophagitis Plan: Dietary restrictions reinforced (8) Pulmonary nodules/lesions, multiple: Code(s): R91.8 - Other nonspecific abnormal finding of lung field Plan: Chest CTA done back in 06/2022 revealed (+) few bilateral sub-4 mm pulmonary nodules noted, especially in the right upper lobe She was reassured that given her low risks, she does not really need to follow up on these but she remains very concerned due to (+) family Hx - mother from lung cancer She was advised that we can try to get a repeat chest CT after 1 year for follow up - repeat chest CT done in December 2023 showed benign findings and her lung nodules are stable (9) Allergic rhinitis: Code(s): J30.9 - Allergic rhinitis, unspecified Qualifiers: Allergic rhinitis trigger: unspecified Allergic rhinitis seasonality: unspecified Qualified Code(s): J30.9 - Allergic rhinitis, unspecified Plan: Continue OTC Loratadine 10 mg QD PRN (10) Varicose veins of bilateral lower extremities with pain: Code(s): I83.813 - Varicose veins of bilateral lower extremities with pain Plan: Follow up with vascular surgery (Dr. 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 She can continue wearing her wrist braces/splints PRN to help her manage her symptoms Will consider referral to orthopedics if her symptoms get worse although advised that this will be mostly for her wrist symptoms and that her finger/hand OA is usually not correctable with surgery (12) Vitamin D deficiency: Code(s): E55.9 - Vitamin D deficiency, unspecified Plan: Continue Vitamin D3 2000 units QD (13) Anxiety: Code(s): F41.9 - Anxiety disorder, unspecified Plan: Continue Lorazepam 0.5 mg 1 to 2 times a day PRN and Sertraline 50 mg QD (14) Overweight (BMI 25.0-29.9): Code(s): E66.3 - Overweight Plan: Reinforced diet/exercise as tolerated/lose weight Plan Follow up in 4 months Orders: Orders US pelvic complete Today R19.8 - Other specified symptoms and signs involving the digestive system and abdomen CA echo transthoracic complete Today R00.2 - Palpitations Medications: Refilled cholecalciferol (vitamin D3) 50 mcg PO DAILY 90 days 90 caps 3RF E55.9 - Vitamin D deficiency, unspecified Coding Level of Care Code Est Pt Level 4 (79524) Complex EM visit Add On G2211 Diagnoses Palpitations R00.2 Aortic valve calcification I35.9 Right pelvic adnexal fluid collection R19.8 Acute myofascial strain of lumbar region, sequela S39.012S Encounter type: sequela Pure hypercholesterolemia E78.00 Acquired hypothyroidism E03.9 GERD without esophagitis K21.9 Pulmonary nodules/lesions, multiple R91.8 Allergic rhinitis, unspecified seasonality, unspecified trigger J30.9 Allergic rhinitis trigger: unspecified Allergic rhinitis seasonality: unspecified Varicose veins of bilateral lower extremities with pain I83.813 Numbness and tingling in both hands R20.0; R20.2 Vitamin D deficiency E55.9 Anxiety F41.9 Overweight (BMI 25.0-29.9) E66.3
== END 2024-03-31 10:02 | disposition home or self-care (01) ==
PROVIDERS: PCP Internal Medicine; Visit Provider Internal Medicine
DX: R00.2 Palpitations (principal); I35.9 Nonrheumatic aortic valve disorder, unspecified; R19.8 Other specified symptoms and signs involving the digestive system and abdomen; S39.012S Strain of muscle, fascia and tendon of lower back, sequela; E78.00 Pure hypercholesterolemia, unspecified; E03.9 Hypothyroidism, unspecified; K21.9 Gastro-esophageal reflux disease without esophagitis; R91.8 Other nonspecific abnormal finding of lung field; J30.9 Allergic rhinitis, unspecified; I83.813 Varicose veins of bilateral lower extremities with pain; R20.0 Anesthesia of skin; R20.2 Paresthesia of skin; E55.9 Vitamin D deficiency, unspecified; F41.9 Anxiety disorder, unspecified; E66.3 Overweight

== ENCOUNTER → 2024-03-31 08:59 | Outpatient (BNVA) | payer OTHER, SELFPAY | PROVIDERS: PCP Internal Medicine; Visit Provider Internal Medicine ==

== ENCOUNTER 2024-04-21 10:44 | Outpatient (REF) | payer OTHER, SELFPAY ==
--- NOTE | ~2024-04-21 | MM_ITS ---
EXAMINATION: MM SCREENING DIGITAL BREAST TOMOSYNTHESIS, BILATERAL CLINICAL INFORMATION: Screening. Asymptomatic. COMPARISON: Mammography: Comparison is made with available priors TECHNIQUE: Digital breast mammography with tomosynthesis is performed in both the craniocaudal and mediolateral oblique views along with computer-aided detection (CAD). FINDINGS: There are scattered areas of fibroglandular density (ACR BI-RADS breast composition Category b). There are no significant masses, abnormal calcifications, or other abnormalities. MM/MM tomosynthesis screening BI IMPRESSION: No mammographic evidence of malignancy. ASSESSMENT: BI-RADS BI-RADS 1 - Negative RECOMMENDATION: Routine annual mammography screening. 1 year F/U This examination should not preclude the clinical evaluation of a suspicious palpable abnormality. This patient's information was entered into a reminder system with a target due date for their next mammogram. Electronically signed by: Jennifer Valles DO 05/02/2024 10:48 AM EDT
== END 2024-04-21 10:45 | disposition home or self-care (01) ==
LOC: HO.MAMMO 10:44
PROVIDERS: PCP Internal Medicine; Visit Provider Internal Medicine
DX: Z12.31 Encounter for screening mammogram for malignant neoplasm of breast (principal)
CPT/HCPCS: 77063; 77067

== ENCOUNTER → 2024-04-21 11:00 | Outpatient (BNV) | payer OTHER, SELFPAY | PROVIDERS: PCP Internal Medicine; Visit Provider Internal Medicine | DX: Z12.31 Encounter for screening mammogram for malignant neoplasm of breast (principal) | CPT/HCPCS: 77063; 77067 ==

== ENCOUNTER → 2024-04-24 09:58 | Outpatient (REF) | payer OTHER, SELFPAY ==
--- NOTE | 2024-04-24 10:03 | CA_ITS ---
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 The visually estimated ejection fraction is between 55-60%. Diastolic function is normal for age. - Normal right ventricular cavity size and systolic function. - The left atrium is normal in size. There is an interatrial septal aneurysm seen. Interatrial shunt cannot be excluded. The right atrium is normal in size. - There is mild tricuspid valve regurgitation. Findings Left Ventricle Normal left ventricular size, thickness, systolic function, and wall motion. The visually estimated ejection fraction is between 55-60%. Diastolic function is normal for age. Right Ventricle Normal right ventricular cavity size and systolic function. Atria The left atrium is normal in size. There is an interatrial septal aneurysm seen. Interatrial shunt cannot be excluded. The right atrium is normal in size. Aortic Valve There is a normal trileaflet aortic valve. There is no aortic valve stenosis. There is no aortic valve regurgitation. Mitral Valve The mitral valve appears normal. There is trace mitral valve regurgitation. There is no mitral valve stenosis. Pulmonic Valve The pulmonic valve is normal. There is trace pulmonic valve regurgitation. Tricuspid Valve Normal tricuspid valve structure. There is mild tricuspid valve regurgitation. Normal right atrial pressure. There is no evidence of pulmonary hypertension. Great Vessels All visible segments of the aorta are normal in size. The visualized portions of the pulmonary artery and branches are normal. Venous The inferior vena cava is normal in size and collapses greater than 50% with inspiration. Pericardium/Pleural There is no evidence of pericardial effusion. Prior Study Comparison No significant change compared to prior study dated: 06/28/2020. Measurements 2D Linear Measurements IVSd: 0.75 0.6-0.9/0.6-1.0 cm LVIDd: 4.47 3.9-5.3/4.2-5.9 cm LVIDd Index: 2.69 2.4-3.2/2.2-3.1 cm/m2 LVIDs: 2.92 2.0-3.6 cm LVPWd: 0.62 0.7-1.1 cm LA Diam: 3.30 2.7-3.8/3.0-4.0 cm LAIDs Index: 1.99 1.5-2.3 cm/m2 LV Mass: 114.90 67-162/88-224 g LV Mass Index: 69.21 43-95/49-115 g/m2 LVOT Diam: 1.90 3.0+(-)1.3 cm 2D Systolic Function EF 4C: 49.40 >55% EF 2C: 52.10 >55% EF BiP: 51.70 >55% Mitral Valve MV Pk E: 0.76 MV PK A: 0.75 MV Decel Time: 246.00 E/A: 1.00 E'Lateral: 9.79 E'Medial: 6.96 E/E' Med: 10.90 E/E' Lat: 7.70 PHT: 72.00 MVA PHT: 3.06 Decel Frontier: 3.08 Aortic Valve AoV Pk Pascual: 1.40 AoV Mn Pascual: 1.02 AoV VTI: 0.34 AoV Pk Grad: 8.00 Aov Mn Grad: 5.00 YOANNA Cont.VTI: 2.05 LVOT LVOT Pk Pascual: 0.98 LVOT Mn Pascual: 0.70 LVOT VTI: 0.25 LVOT Pk Grad: 4.00 LVOT Mn Grad: 2.00 LVOT Diam: 1.90 LVOT Area: 2.84 Diastolic Function MV Pk E: 0.76 MV Pk A: 0.75 E/A: 1.00 E'Medial: 6.96 E/E' Med: 10.90 E' Laterial: 9.79 E/E' Lat: 7.70 Right Ventricle TAPSE (mm): 17.70 TVS' Pascual: 10.70 Tricuspid Valve TR Pk Pascual: 2.04 TR Pk Grad: 17.00 RA Press: 3.00 RVSP: 20.00 Great Vessels Aorta Sinus of Valsalva: 2.80 2.0-3.5 cm Ao Asc: 3.00 2.1-3.4 cm Pulmonary Veins Pulm Vein S/D 1.00 Pulmonary Valve PV Pk Pascual: 0.76 Peak PV Grad: 2.00 Shunting QP:QS: 1.00 Updated in Other Vendor System with Status of Final Kashif Rascon MD electronically signed on 04/26/2024 1:20:29 PM with status of Final
== END ==
LOC: HO.CARD 09:58
PROVIDERS: PCP Internal Medicine; Visit Provider Internal Medicine
DX: R00.2 Palpitations (principal); R19.8 Other specified symptoms and signs involving the digestive system and abdomen
CPT/HCPCS: 76830; 76856; 93306

== ENCOUNTER → 2024-04-24 10:03 | Outpatient (BNV) | payer OTHER, SELFPAY | PROVIDERS: PCP Internal Medicine; Visit Provider Internal Medicine Cardiovascular Disease | DX: I25.3 Aneurysm of heart (principal); I36.1 Nonrheumatic tricuspid (valve) insufficiency | CPT/HCPCS: 93306 ==

== ENCOUNTER 2024-08-18 07:37 | Outpatient (REF) | payer OTHER, SELFPAY ==
[2024-08-18 10:18] LABS: MANUAL DIFF FLAG NO
[2024-08-18 10:24] LABS: Appearance Urine Clear; Color Urine Yellow; Glucose Urine UA Negative (Negative); Leukocyte Esterase Urine Negative (Negative); Nitrite Urine Negative (Negative); PH >= 9.0 (5.0-9.0); Specific Gravity - Urine 1.015 (1.005-1.025); Urine Blood Negative (Negative); Urine Ketones Negative (Negative); Urine Protein Negative (Neg-Trace)
[2024-08-18 10:24] LABS: Basophils Percent Auto 0.4 % (0-2); Eosinophils Absolute Auto 0.1 X10*3/uL (0.0-0.4); Eosinophils Percent Auto 2.2 % (0-4); Hematocrit 38.9 % (37.0-47.0); Imm Gran Abs Auto 0.01 X10*3/uL (0.00-0.03); Imm Gran Pct Auto 0.2 % (0.0-0.4); Lymphocytes Percent Auto 43.7 % (20-40); Mean Corpuscular HGB Conc 33.4 g/dl (31.0-35.0); Mean Corpuscular Hemoglobin 29.1 pg (27.0-33.0); Mean Corpuscular Volume 87.2 fL (80.0-98.0); Mean Platelet Volume 9.7 fL (9.4-12.3); Monocytes Absolute Auto 0.3 X10*3/uL (0.1-1.2); Monocytes Percent Auto 6.4 % (2-11); Neutrophils Absolute Auto 2.1 x10*3/uL (2.0-8.3); Neutrophils Percent Auto 47.1 % (45-73); Platelet Count 250 X10*3/uL (160-400); Red Blood Count 4.46 X10*6/uL (4.20-5.50); Red Cell Distribution Width 13.1 % (11.0-16.0); White Blood Count 4.5 X10*3/uL (4.8-10.8)
[2024-08-18 10:43] LABS: Alanine Aminotransferase 16 U/L (0-31); Albumin Level 3.9 g/dL (3.5-5.0); Alkaline Phosphatase 70 U/L (39-117); Anion Gap 11 (12-20); Aspartate Amino Transferase 26 U/L (5-31); Bilirubin Total 0.8 mg/dL (0.0-1.0); Blood Urea Nitrogen 11 mg/dL (9-16); Calcium 8.9 mg/dL (8.4-10.2); Carbon Dioxide 24 mmol/L (22-29); Chloride 110 mmol/L (96-108); Cholesterol 166 mg/dL (<200); Estimated Glomerular Filt Rate > 60; Glucose Fasting 91 mg/dL (60-99); HDL Cholesterol 54 mg/dL (>40); LDL Cholesterol Calculated 94 mg/dL (<100); Potassium 4.1 mmol/L (3.3-5.1); Sodium 141 mmol/L (135-145); Total Protein 7.1 g/dL (6.5-8.0); Triglycerides 92 mg/dL (<150)
[2024-08-18 11:04] LABS: Free T4 (Free Thyroxine) 1.32 ng/dL (0.71-1.85); Vitamin D 25-OH Total 56.5 ng/mL (>30)
== END 2024-08-18 07:38 | disposition home or self-care (01) ==
LOC: HO.HMGCLDS 07:37
PROVIDERS: PCP Internal Medicine; Visit Provider Internal Medicine
DX: N84.0 Polyp of corpus uteri (principal); J98.8 Other specified respiratory disorders; R00.2 Palpitations; E78.00 Pure hypercholesterolemia, unspecified; E03.9 Hypothyroidism, unspecified; K21.9 Gastro-esophageal reflux disease without esophagitis; J30.9 Allergic rhinitis, unspecified; F41.9 Anxiety disorder, unspecified; E66.3 Overweight; Z68.26 Body mass index [BMI] 26.0-26.9, adult; R30.0 Dysuria; E55.9 Vitamin D deficiency, unspecified; D64.9 Anemia, unspecified; Z79.899 Other long term (current) drug therapy
CPT/HCPCS: 36415; 80053; 80061; 81003; 82306; 84439; 84443; 85025; 96127

== ENCOUNTER 2024-08-18 08:35 | Outpatient (AMB) | payer OTHER, SELFPAY ==
[2024-08-18 08:54] VITALS: BP 104/54; PULSE 80; O2SAT 97; BMI 26.6
--- NOTE | 2024-08-18 08:54 | MHC.PC.OV ---
Vital Signs 08/18/24 08:54 Height 5 ft 2 in Weight 145 lb 6 oz BMI 26.6 BP 104/54 L Blood Pressure Location Lt brachial Position Sitting Pulse 80 Pulse Source Pulse Oximeter Pulse Oximetry (%) 97 Oxygen Delivery Method Room Air Intake Visit Reasons: [id number] f/u Clinical Supervisor Required: No Accompanied by: Self / Same As Patient Allergies amoxicillin [Augmentin] Allergy (Severe, Verified 08/18/24 09:23) hives, lip swelling clavulanic acid [Augmentin] Allergy (Severe, Verified 08/18/24 09:23) hives,lip swelling ibuprofen [Ibuprofen] Allergy (Severe, Verified 08/18/24 09:23) DIFF BREATHING prednisone [Prednisone] Allergy (Severe, Verified 08/18/24 09:23) RASH, rash, SOB Sulfa (Sulfonamide Antibiotics) Adverse Reaction (Intermediate, Verified 08/18/24 09:23) ? rash, headaches ? Medication List - Last Reconciled 08/18/24 by Goyo Wilson MD albuterol sulfate 90 mcg/actuation 2 puffs inhalation Q6H PRN cholecalciferol (vitamin D3) 50 mcg PO DAILY 90 days levothyroxine (Euthyrox) 112 mcg PO QAM 90 days simvastatin 10 mg PO BEDTIME 90 days tramadol 50 mg PO Q8H PRN 3 days Tobacco use date assessed: 08/18/24 Dental Screening Dental Screen Date: 08/18/24 Did you have a dental visit in the last 12 months?: Yes Did you have a dental problem in the last 6 months where you did not have access to dental care?: No Was dental information given to patient?: Patient has dentist HPI 4mt f/u HPI Details Patient comes in today for her follow up visit States that she has been sick for the past couple of weeks with increased cough and congestion - has been sick since 07/31/2024 States that she went to a local urgent care center and was prescribed some Rx for her symptoms but these are mostly just for symptomatic Tx States that her throat was sore for a while but that has since cleared up She denies any fever, headaches or dizziness Denies any chest pains, no increased SOB No nausea/vomiting, no abdominal pain No change in bowel habits noted Needs her Albuterol inhaler Rx refilled She had her follow up labs done earlier this morning just before she came into the office - results are not yet available for review at this time She would also like to know how her pelvic US done a couple of months ago came out [facility] Medical History (Reviewed 08/18/24 @ 09: by Goyo Wilson MD) Vitamin D deficiency Varicose veins of bilateral lower extremities with pain Right hip pain Overweight (BMI 25.0-29.9) Anxiety Allergic rhinitis GERD without esophagitis Acquired hypothyroidism Exertional dyspnea Pure hypercholesterolemia Palpitations Surgical History (Reviewed 08/18/24 @ : by Goyo Wilson MD) History of bone graft History of colonoscopy History of laparoscopic cholecystectomy Family History (Reviewed 08/18/24 @ : by Goyo Wilson MD) Father Diabetes Mother Cancer Social History (Reviewed 08/18/24 @ : by Goyo Wilson MD) Housing: House Housing Other:: mobile home Alcohol intake: current Alcohol intake frequency: a few times a month Alcohol type: beer and wine Patient Tobacco Use Status: Former Tobacco user e-Cigarette/Vaping Use: Never Used Second Hand Smoke Exposure: Yes Substance Use Type: Marijuana service: No Current occupational status: employed 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 1. Little interest or pleasure in doing things: not at all 2. Feeling down, depressed, or hopeless: not at all 3. Trouble falling or staying asleep, or sleeping too much: not at all 4. Feeling tired or having little energy: not at all 5. Poor appetite or overeating: not at all 6. Feeling bad about yourself - or that you are a failure or have let yourself or your family down: not at all 7. Trouble concentrating on things, such as reading the newspaper or watching television: not at all 8. Moving or speaking so slowly that other people could have noticed. Or the opposite - being so fidgety or restless that you have been moving around a lot more than usual: not at all 9. Thoughts that you would be better off or of hurting yourself in some way: not at all Total score: 0 Depression Screening Interpretation: Negative Depression Screening Done: Yes 11242 - PHQ-9 Billing: Yes Source: Developed by Drs. Maikel Leal, Donna Diez, Smith Lu and colleagues, with an educational hamilton from [email or web address] Thrive Questionnaire Date Thrive assessed: 08/18/24 I am a: Patient What is your living situation today?: I have a steady place to live Within the past 12 months, did the food you bought not last and you didn't have the money to get more?: Never true Within the past 12 months, did you worry whether your food would run out before you got money to buy more?: Never true Do you have trouble paying for medicines?: No Do you have trouble getting transportation to medical appointments?: No Do you have trouble paying your heating and electricity bill?: No Do you have trouble taking care of your child, family member or friend?: No Do you have trouble with day-to-day activities such as bathing, preparing meals, shopping, managing finances, etc.?: No Are you currently unemployed and looking for a job?: No Are you interested in more education?: No Please select the resources that you would like help with: None Currently or been in a relationship where the following occur: No concerns reported THRIVE Score: 0 AUDIT C Alcohol Use Questionnaire (AUDIT-C) 1. How often do you have a drink containing alcohol?: Monthly or less 2. How many drinks containing alcohol do you have on a typical day when you are drinking?: 1 or 2 3. How often do you have six or more drinks on one occasion?: Never Total Score: 1 Score Reviewed/Action Taken: Yes CHANTAL-7 AMB Questionnaire CHANTAL-7 Date CHANTAL - 7 assessed: 08/18/24 Feeling nervous, anxious, or on edge: 0 = Not at all Not being able to stop or control worryin = Not at all Worrying too much about different things: 0 = Not at all Trouble relaxin = Not at all Being so restless that it is hard to sit still: 0 = Not at all Becoming easily annoyed or irritable: 0 = Not at all Feeling afraid as if something awful might happen: 0 = Not at all Total CHANTAL-7 score (0-4 normal; 5-9 mild; 10-14 moderate; 15-21 severe): 0 Source: Developed by Drs. Maikel Leal, Donna Diez, Smith Lu and colleagues, with an educational hamilton from [email or web address] Review of Systems Const Denies chills, Reports fatigue, Denies fever(s) and Denies headache(s) ENT Denies dysphagia, Denies dizziness, Denies otalgia, Denies headache(s), Reports nasal congestion, Denies neck pain, Denies odynophagia and Denies sore throat Card Denies chest pain, Denies palpitations and Reports dyspnea on exertion (mild) Resp Reports chest congestion, Reports cough (on and off for the past couple of weeks), Reports dyspnea on exertion (mild) and Denies wheezing GI Denies abdominal pain, Denies constipation, Denies dysphagia, Denies diarrhea, Denies nausea, Denies odynophagia and Denies vomiting Denies difficulty voiding, Denies nocturia, Denies dysuria and Denies urinary urgency Musc Reports arthralgias (on and off over both wrists), Denies neck pain, Reports numbness (recurrent in both hands, especially in the morning when she wakes up) and Reports tingling (frequent, in both hands) Skin/Breast Denies rash Neuro Denies dizziness, Denies headache(s), Reports numbness (recurrent in both hands, especially in the morning when she wakes up), Reports tingling (frequent, in both hands) and Reports paresthesias (recurrent in both hands) Endo Reports fatigue and Denies palpitations Aller/Immun Denies wheezing Physical exam (Primary Care) Vital Signs: Last Vital Signs Pulse 80 08/18/24 08:54 BP 104/54 L 08/18/24 08:54 Pulse Ox 97 08/18/24 08:54 Oxygen Delivery Method Room Air 08/18/24 08:54 BMI result Body Mass Index 26.6 Tobacco/Smoking Status: Tobacco use Status Tobacco use date assessed 08/18/24 08/18/24 08:56 Patient Tobacco Use Status Former Tobacco user 08/18/24 08:56 e-Cigarette/Vaping Use Never Used 08/18/24 08:56 PHQ-9: PHQ-9 Score PHQ-9: Total score 0 08/18/24 09:29 Depression Screening Interpretation: Negative Thrive Assessment: Date of Thrive Assessment Date Thrive assessed 08/18/24 08/18/24 08:56 Currently or been in a relationship where the following occur: No concerns reported Const General: no acute distress and alert HENMT Ears: TM's normal bilaterally and EAC's normal Throat: Yes posterior oropharynx normal and Yes tonsils normal Neck Neck: Yes supple and No lymphadenopathy Thyroid: Thyroid normal Resp Auscultation: no crackles, no rales, rhonchi (scattered ) throughout, no wheezes and diminished lung sounds (slightly) bilateral Cardio Rate: regular rate Rhythm: regular rhythm Heart sounds: no murmurs GI Palpation (GI): Soft to palpation and nontender Auscultation: normal bowel sounds Back/Spine/Pelvis Cervical Spine: No Cervical spine tenderness Thoracic/Lumbar Spine: No lumbar spinal tenderness Skin Rashes: no rashes Extrem General: Yes no clubbing, cyanosis or edema Right upper extremity: Extremity exam: right hand Details: tenderness (over the interphalangeal joints of the fingers, especially the DIP) Left upper extremity: hand Details: tenderness (over the interphalangeal joints of the fingers, especially the DIP) Coding Level of Care Code Est Pt Level 4 (40276) Diagnoses Endometrial polyp N84.0 Respiratory tract infection J98.8 Palpitations R00.2 Pure hypercholesterolemia E78.00 Acquired hypothyroidism E03.9 GERD without esophagitis K21.9 Allergic rhinitis, unspecified seasonality, unspecified trigger J30.9 Allergic rhinitis seasonality: unspecified Allergic rhinitis trigger: unspecified Anxiety F41.9 Overweight (BMI 25.0-29.9) E66.3 Additional Codes PHQ-9 - 46537 - PHQ-9 Billing: Yes ([id number]) Assessment & Plan Assessment & Plan (1) Endometrial polyp: Code(s): N84.0 - Polyp of corpus uteri Category: Medical Plan: Results of patient's pelvic ultrasound done 04/24/2024 reviewed and discussed with patient - this sonogram was ordered to further evaluate some abdominal and pelvic CT findings back when she had the CT done at the ER in March 2024 Her ultrasound reveals presence of a 4 mm endometrial polyp with fluid in the endometrial canal and a hysteroscopy is recommended for further evaluation Will go ahead and refer the patient to gynecology at [facility], per her request, for further evaluation - patient has indicated that she prefers seeing a female practitioner and [facility] is closer to home for her as she lives in [place] (2) Respiratory tract infection: Code(s): J98.8 - Other specified respiratory disorders Category: Medical Plan: We will go ahead and start the patient empirically on Azithromycin QD x 5 days for her ongoing respiratory tract infection that has been going on for a couple of weeks Per request, we will also refill her Albuterol inhaler Rx 1-2 inhalations every 6 hours as needed (3) Palpitations: Code(s): R00.2 - Palpitations Category: Medical Plan: Patient states that her symptoms have improved a lot lately and this is hardly bothering her nowadays Follow up with cardiology as scheduled or as needed (4) Pure hypercholesterolemia: Code(s): E78.00 - Pure hypercholesterolemia, unspecified Category: Medical Plan: Patient just had her follow-up labs done earlier this morning and her results are not yet available for review at this time Advised patient that we will reach out to her if labs come back with any unusual or unexpected results Reinforce low-cholesterol diet Continue Simvastatin 10 mg QD Will have her recheck her labs and fasting lipids in 4 months for follow-up (5) Acquired hypothyroidism: Code(s): E03.9 - Hypothyroidism, unspecified Category: Medical Plan: Continue Levothyroxine 112 mcg daily Will follow-up her TFTs done earlier this morning Will also have her recheck her TFTs in 4 months (6) GERD without esophagitis: Code(s): K21.9 - Gastro-esophageal reflux disease without esophagitis Category: Medical Plan: Dietary restrictions reinforced S/P EGD in 09/2016 - (+) mild gastritis and GERD Continue Famotidine 20 mg QD PRN - patient was unable to tolerate Omeprazole due to side effects (7) Allergic rhinitis: Code(s): J30.9 - Allergic rhinitis, unspecified Category: Medical Qualifiers: Allergic rhinitis seasonality: unspecified Allergic rhinitis trigger: unspecified Qualified Code(s): J30.9 - Allergic rhinitis, unspecified Plan: Continue OTC Loratadine 10 mg QD PRN (8) Anxiety: Code(s): F41.9 - Anxiety disorder, unspecified Category: Medical Plan: Continue Lorazepam 0.5 mg 1 to 2 times a day PRN and Sertraline 50 mg QD (9) Overweight (BMI 25.0-29.9): Code(s): E66.3 - Overweight Category: Medical Plan: Reinforced diet/exercise as tolerated/lose weight Plan Follow up in 4 months Orders: Orders Thyroid Stimulating Hormone 4 Months E03.9 - Hypothyroidism, unspecified UA CC w/rflx Micro + Cult 4 Months R30.0 - Dysuria Vitamin D 25-OH Total 4 Months E55.9 - Vitamin D deficiency, unspecified Comprehensive [place]. Panel Fast 4 Months E78.00 - Pure hypercholesterolemia, unspecified Lipid Panel 4 Months E78.00 - Pure hypercholesterolemia, unspecified Free T4 (Free Thyroxine) 4 Months E03.9 - Hypothyroidism, unspecified Complete Blood Count Auto Diff 4 Months D64.9 - Anemia, unspecified Referrals [employer] Referral N84.0 - Polyp of corpus uteri Medications: New azithromycin take 500 mg today (day 1), then 250 mg for 4 days (days 2-5) PO 6 tabs 0RF Refilled albuterol sulfate 90 mcg/actuation 2 puffs inhalation Q6H PRN 8.5 grams 2RF shortness of breath or wheezing
== END 2024-08-18 09:48 | disposition home or self-care (01) ==
PROVIDERS: PCP Internal Medicine; Visit Provider Internal Medicine
DX: N84.0 Polyp of corpus uteri (principal); J98.8 Other specified respiratory disorders; R00.2 Palpitations; E78.00 Pure hypercholesterolemia, unspecified; E03.9 Hypothyroidism, unspecified; K21.9 Gastro-esophageal reflux disease without esophagitis; J30.9 Allergic rhinitis, unspecified; F41.9 Anxiety disorder, unspecified; E66.3 Overweight

== ENCOUNTER 2025-01-08 08:38 | Outpatient (REF) | payer OTHER, SELFPAY ==
[2025-01-08 10:30] LABS: MANUAL DIFF FLAG NO
[2025-01-08 10:43] LABS: Hematocrit 39.8 % (37.0-47.0); Hemoglobin 13.6 g/dl (12.0-16.0); Imm Gran Abs Auto 0.01 X10*3/uL (0.00-0.03); Imm Gran Pct Auto 0.2 % (0.0-0.4); Lymphocytes Absolute Auto 2.1 X10*3/uL (1.2-4.9); Mean Corpuscular HGB Conc 34.2 g/dl (31.0-35.0); Mean Corpuscular Hemoglobin 29.7 pg (27.0-33.0); Mean Corpuscular Volume 86.9 fL (80.0-98.0); NRBC Abs Auto 0.000 X10*3/uL (0.0-0.012); NRBC Pct Auto 0.0 /100WBC (0.0-0.2); Platelet Count 200 X10*3/uL (160-400); Red Blood Count 4.58 X10*6/uL (4.20-5.50); White Blood Count 5.8 X10*3/uL (4.8-10.8)
[2025-01-08 11:11] LABS: Appearance Urine Clear; Glucose Urine UA Negative (Negative); PH 8.0 (5.0-9.0); Specific Gravity - Urine 1.015 (1.005-1.025)
[2025-01-08 11:12] LABS: Alanine Aminotransferase 15 U/L (0-31); Albumin Level 4.2 g/dL (3.5-5.0); Alkaline Phosphatase 70 U/L (39-117); Anion Gap 11 (12-20); Aspartate Amino Transferase 19 U/L (5-31); Blood Urea Nitrogen 16 mg/dL (9-16); Calcium 9.5 mg/dL (8.4-10.2); Carbon Dioxide 29 mmol/L (22-29); Chloride 107 mmol/L (96-108); Cholesterol 185 mg/dL (<200); Estimated Glomerular Filt Rate > 60; Free T4 (Free Thyroxine) 1.30 ng/dL (0.71-1.85); HDL Cholesterol 57 mg/dL (>40); Potassium 4.1 mmol/L (3.3-5.1); Sodium 143 mmol/L (135-145); Thyroid Stimulating Hormone 0.06 uIU/mL (0.32-4.0); Total Protein 7.1 g/dL (6.5-8.0); Triglycerides 129 mg/dL (<150)
== END 2025-01-08 08:39 | disposition home or self-care (01) ==
LOC: HO.HMGCLDS 08:38
PROVIDERS: PCP Internal Medicine; Visit Provider Internal Medicine
DX: R30.0 Dysuria (principal); E55.9 Vitamin D deficiency, unspecified; E78.00 Pure hypercholesterolemia, unspecified; E03.9 Hypothyroidism, unspecified; D64.9 Anemia, unspecified
CPT/HCPCS: 36415; 80053; 80061; 81003; 82306; 84439; 84443; 85025

== ENCOUNTER 2025-01-12 12:22 | Outpatient (AMB) | payer OTHER, SELFPAY ==
[2025-01-12 12:30] VITALS: BP 118/62; PULSE 83; O2SAT 97; BMI 26.9
--- NOTE | 2025-01-12 12:30 | MHC.PC.OV ---
Vital Signs 01/12/25 12:30 Height 5 ft 2 in Weight 147 lb BMI 26.9 BP 118/62 Blood Pressure Location Lt brachial Position Sitting Pulse 83 Pulse Source Pulse Oximeter Pulse Oximetry (%) 97 Oxygen Delivery Method Room Air Intake Visit Reasons: 4mth f/u Intake Note: Patient here for a 4 month follow up Floatlight Powder Mixer Required: No Accompanied by: Self / Same As Patient Allergies amoxicillin (Augmentin) Allergy (Severe, Verified 01/12/25 12:48) hives, lip swelling clavulanic acid (Augmentin) Allergy (Severe, Verified 01/12/25 12:48) hives,lip swelling ibuprofen (Ibuprofen) Allergy (Severe, Verified 01/12/25 12:48) DIFF BREATHING prednisone (Prednisone) Allergy (Severe, Verified 01/12/25 12:48) RASH, rash, SOB Sulfa (Sulfonamide Antibiotics) Adverse Reaction (Intermediate, Verified 01/12/25 12:48) ? rash, headaches ? Medication List - Last Reconciled 01/12/25 by Goyo Wilson MD albuterol sulfate 90 mcg/actuation 2 puffs inhalation Q6H PRN cholecalciferol (vitamin D3) 50 mcg PO DAILY 90 days levothyroxine (Euthyrox) 112 mcg PO QAM 90 days simvastatin 10 mg PO BEDTIME 90 days Tobacco use date assessed: 08/18/24 Dental Screening Dental Screen Date: 08/18/24 HPI 4mth f/u HPI Details Patient comes in today for her follow up visit States that she feels okay She denies any headaches or dizziness Denies any chest pains, no increased SOB No nausea/vomiting, no abdominal pain No change in bowel habits noted She had her follow up labs done a few days ago - to discuss her results REPLACED BY [facility] Medical History Vitamin D deficiency Varicose veins of bilateral lower extremities with pain Right hip pain Overweight (BMI 25.0-29.9) Anxiety Allergic rhinitis GERD without esophagitis Acquired hypothyroidism Exertional dyspnea Pure hypercholesterolemia Palpitations Surgical History History of bone graft History of colonoscopy History of laparoscopic cholecystectomy Family History Father Diabetes Mother Cancer Social History (Updated 01/12/25 @ 12:33 by AFIA Campos) Housing: House Housing Other:: mobile home Alcohol intake: current Alcohol intake frequency: a few times a month Alcohol type: beer and wine Patient Tobacco Use Status: Former Tobacco user Tobacco use type: Cigarette e-Cigarette/Vaping Use: Never Used Second Hand Smoke Exposure: Yes Substance Use Type: Marijuana service: No Current occupational status: employed 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 1. Little interest or pleasure in doing things: not at all 2. Feeling down, depressed, or hopeless: not at all 3. Trouble falling or staying asleep, or sleeping too much: not at all 4. Feeling tired or having little energy: not at all 5. Poor appetite or overeating: not at all 6. Feeling bad about yourself - or that you are a failure or have let yourself or your family down: not at all 7. Trouble concentrating on things, such as reading the newspaper or watching television: not at all 8. Moving or speaking so slowly that other people could have noticed. Or the opposite - being so fidgety or restless that you have been moving around a lot more than usual: not at all 9. Thoughts that you would be better off or of hurting yourself in some way: not at all Total score: 0 Depression Screening Interpretation: Negative Depression Screening Done: Yes 83283 - PHQ-9 Billing: Yes Source: Developed by Drs. Maikel Leal, Donna Diez, Smith Lu and colleagues, with an educational hamilton from [employer]. Thrive Questionnaire Date Thrive assessed: 01/12/25 I am a: Patient What is your living situation today?: I have a steady place to live Within the past 12 months, did the food you bought not last and you didn't have the money to get more?: Never true Within the past 12 months, did you worry whether your food would run out before you got money to buy more?: Never true Do you have trouble paying for medicines?: No Do you have trouble getting transportation to medical appointments?: No Do you have trouble paying your heating and electricity bill?: No Do you have trouble taking care of your child, family member or friend?: No Do you have trouble with day-to-day activities such as bathing, preparing meals, shopping, managing finances, etc.?: No Are you currently unemployed and looking for a job?: No Are you interested in more education?: No Please select the resources that you would like help with: None Currently or been in a relationship where the following occur: No concerns reported THRIVE Score: 0 AUDIT C Alcohol Use Questionnaire (AUDIT-C) 1. How often do you have a drink containing alcohol?: 2-4 times a month 2. How many drinks containing alcohol do you have on a typical day when you are drinking?: 1 or 2 3. How often do you have six or more drinks on one occasion?: Never Total Score: 2 Score Reviewed/Action Taken: Yes CHANTAL-7 AMB Questionnaire CHANTAL-7 Date CHANTAL - 7 assessed: 01/12/25 Feeling nervous, anxious, or on edge: 0 = Not at all Not being able to stop or control worryin = Not at all Worrying too much about different things: 0 = Not at all Trouble relaxin = Not at all Being so restless that it is hard to sit still: 0 = Not at all Becoming easily annoyed or irritable: 0 = Not at all Feeling afraid as if something awful might happen: 0 = Not at all Total CHANTAL-7 score (0-4 normal; 5-9 mild; 10-14 moderate; 15-21 severe): 0 Source: Developed by Drs. Maikel Leal, Donna Diez, Smith Lu and colleagues, with an educational hamilton from [employer]. Review of Systems Const Denies chills, Denies fatigue, Denies fever(s) and Denies headache(s) ENT Denies dysphagia, Denies dizziness, Denies otalgia, Denies headache(s), Denies neck pain, Denies odynophagia, Reports tinnitus (bilateral) and Denies sore throat Card Denies chest pain, Denies palpitations and Denies dyspnea Resp Denies chest congestion, Denies cough and Denies dyspnea GI Denies abdominal pain, Denies constipation, Denies dysphagia, Denies diarrhea, Denies nausea, Denies odynophagia and Denies vomiting Denies difficulty voiding, Denies nocturia, Denies dysuria and Denies urinary urgency Musc Denies back pain, Reports arthralgias (on and off over both wrists), Denies neck pain, Reports numbness (recurrent in both hands, especially in the morning when she wakes up) and Reports tingling (frequent, in both hands) Skin/Breast Denies rash Neuro Denies dizziness, Denies headache(s), Reports numbness (recurrent in both hands, especially in the morning when she wakes up), Reports tingling (frequent, in both hands) and Reports paresthesias (recurrent in both hands) Endo Denies fatigue and Denies palpitations Physical exam (Primary Care) Vital Signs: Last Vital Signs Pulse 83 01/12/25 12:30 BP 118/62 01/12/25 12:30 Pulse Ox 97 01/12/25 12:30 Oxygen Delivery Method Room Air 01/12/25 12:30 BMI result Body Mass Index 26.9 Tobacco/Smoking Status: Tobacco use Status Tobacco use date assessed 08/18/24 01/12/25 12:31 Patient Tobacco Use Status Former Tobacco user 01/12/25 12:33 Tobacco use type Cigarette 01/12/25 12:33 e-Cigarette/Vaping Use Never Used 01/12/25 12:33 PHQ-9: PHQ-9 Score PHQ-9: Total score 0 01/12/25 12:33 Depression Screening Interpretation: Negative Thrive Assessment: Date of Thrive Assessment Date Thrive assessed 01/12/25 01/12/25 12:33 Currently or been in a relationship where the following occur: No concerns reported Const General: no acute distress and alert HENMT Ears: TM's normal bilaterally and EAC's normal Throat: Yes posterior oropharynx normal and Yes tonsils normal Neck Neck: Yes supple and No lymphadenopathy Thyroid: Thyroid normal Resp Auscultation: clear to auscultation bilaterally, no crackles, no rales and no wheezes Cardio Rate: regular rate Rhythm: regular rhythm Heart sounds: no murmurs GI Palpation (GI): Soft to palpation and nontender Auscultation: normal bowel sounds General: Yes no CVA tenderness Back/Spine/Pelvis Back: no CVA tenderness Cervical Spine: No Cervical spine tenderness Thoracic/Lumbar Spine: No lumbar spinal tenderness Skin Rashes: no rashes Extrem General: Yes no clubbing, cyanosis or edema Right upper extremity: Extremity exam: right hand Details: tenderness (over the interphalangeal joints of the fingers, especially the DIP) Left upper extremity: hand Details: tenderness (over the interphalangeal joints of the fingers, especially the DIP) Results Reviewed Results Reviewed: Laboratory Tests 01/08/25 08:43 WBC 5.8 Hgb 13.6 Hct 39.8 Plt Count 200 Sodium 143 Potassium 4.1 Creatinine 0.66 Estimated GFR > 60 Fasting Glucose 95 Calcium 9.5 D AST 19 ALT 15 Triglycerides 129 Cholesterol 185 LDL Cholesterol, Calc 103 H HDL Cholesterol 57 25-OH Vitamin D Total 50.2 TSH 0.06 L Free T4 1.30 Ur Specific Childs 1.015 Urine Protein Negative Urine Glucose (UA) Negative Urine Blood Negative Urine Nitrite Negative Ur Leukocyte Esterase Negative Coding Level of Care Code Est Pt Level 4 (20147) Diagnoses Pure hypercholesterolemia E78.00 Palpitations R00.2 Acquired hypothyroidism E03.9 GERD without esophagitis K21.9 Allergic rhinitis, unspecified seasonality, unspecified trigger J30.9 Allergic rhinitis trigger: unspecified Allergic rhinitis seasonality: unspecified Tinnitus of both ears H93.13 Anxiety F41.9 Overweight (BMI 25.0-29.9) E66.3 Additional Codes PHQ-9 - 51734 - PHQ-9 Billing: Yes ([id number]) Assessment & Plan Assessment & Plan (1) Pure hypercholesterolemia: Code(s): E78.00 - Pure hypercholesterolemia, unspecified Category: Medical Plan: Results of her labs done a few days ago reviewed and discussed with patient - she is cautioned that her cholesterol levels have all increased slightly from previous Reinforced low-cholesterol diet Continue Simvastatin 10 mg QD Will have her recheck her labs and fasting lipids in 4 months for follow-up (2) Palpitations: Code(s): R00.2 - Palpitations Category: Medical Plan: Patient states that her symptoms have improved a lot lately and this is hardly bothering her nowadays Follow up with cardiology as scheduled or as needed (3) Acquired hypothyroidism: Code(s): E03.9 - Hypothyroidism, unspecified Category: Medical Plan: Her TFTs are normal/unchanged on her recent labs Continue Levothyroxine 112 mcg daily Will also have her recheck her TFTs in 4 months (4) GERD without esophagitis: Code(s): K21.9 - Gastro-esophageal reflux disease without esophagitis Category: Medical Plan: Dietary restrictions reinforced S/P EGD in 09/2016 - (+) mild gastritis and GERD Continue Famotidine 20 mg QD PRN - patient was unable to tolerate Omeprazole due to side effects (5) Allergic rhinitis: Code(s): J30.9 - Allergic rhinitis, unspecified Category: Medical Qualifiers: Allergic rhinitis trigger: unspecified Allergic rhinitis seasonality: unspecified Qualified Code(s): J30.9 - Allergic rhinitis, unspecified Plan: Continue OTC Loratadine 10 mg QD PRN (6) Tinnitus of both ears: Code(s): H93.13 - Tinnitus, bilateral Category: Medical Plan: Discussed with patient that tinnitus is usually a symptom of hearing loss Patient states that she has noticed (+) hearing loss on her part lately and would like to have this checked out further Will refer her for hearing evaluation (7) Anxiety: Code(s): F41.9 - Anxiety disorder, unspecified Category: Medical Plan: Continue Lorazepam 0.5 mg 1 to 2 times a day PRN and Sertraline 50 mg QD (8) Overweight (BMI 25.0-29.9): Code(s): E66.3 - Overweight Category: Medical Plan: Reinforced diet/exercise as tolerated/lose weight Plan Follow up in 4 months Orders: Orders Complete Blood Count Auto Diff 4 Months D64.9 - Anemia, unspecified Comprehensive [facility]. Panel Fast 4 Months E78.00 - Pure hypercholesterolemia, unspecified Free T4 (Free Thyroxine) 4 Months E03.9 - Hypothyroidism, unspecified UA CC w/rflx Micro + Cult 4 Months R30.0 - Dysuria Lipid Panel 4 Months E78.00 - Pure hypercholesterolemia, unspecified Thyroid Stimulating Hormone 4 Months E03.9 - Hypothyroidism, unspecified Referrals Speech and Hearing Referral H91.90 - Unspecified hearing loss, unspecified ear, H93.13 - Tinnitus, bilateral
== END 2025-01-12 13:04 | disposition home or self-care (01) ==
LOC: HO.HMCH 12:23
PROVIDERS: PCP Internal Medicine; Visit Provider Internal Medicine
DX: E78.00 Pure hypercholesterolemia, unspecified (principal); R00.2 Palpitations; E03.9 Hypothyroidism, unspecified; K21.9 Gastro-esophageal reflux disease without esophagitis; J30.9 Allergic rhinitis, unspecified; H93.13 Tinnitus, bilateral; F41.9 Anxiety disorder, unspecified; E66.3 Overweight

== ENCOUNTER → 2025-01-12 12:22 | Outpatient (BNVA) | payer OTHER, SELFPAY | PROVIDERS: PCP Internal Medicine; Visit Provider Internal Medicine | DX: E78.00 Pure hypercholesterolemia, unspecified (principal); R00.2 Palpitations; E03.9 Hypothyroidism, unspecified; K21.9 Gastro-esophageal reflux disease without esophagitis; J30.9 Allergic rhinitis, unspecified; H93.13 Tinnitus, bilateral; F41.9 Anxiety disorder, unspecified; E66.3 Overweight; Z68.26 Body mass index [BMI] 26.0-26.9, adult; Z79.899 Other long term (current) drug therapy; Z13.31 Encounter for screening for depression; Z13.39 Encounter for screening examination for other mental health and behavioral disorders | CPT/HCPCS: 96127 ==

== ENCOUNTER 2025-02-23 13:00 | Outpatient (REF) | payer OTHER, SELFPAY ==
--- OUTSIDE RECORDS SUMMARY | 2025-02-23 14:14 | XMS_ITS | Clinical Summary ---
Author Organization [facility] Address [address] [place] [id number] Phone Care Team Providers Care Cement Kiln Operator Name Role Phone Goyo Wilson MD Primary Care Provider [phone] Allergies Active Allergy Reactions Criticality Noted Date Comments Ibuprofen Shortness Of Breath,Swelling High 025 Prednazoline Hives,Itching,Rash,Shortness Of Breath High 10/27/2024 Medications albuterol 90 mcg/actuation inhaler INHALE 2 PUFFS 4 TIMES A DAY 08/10/2024 Active VITAMIN D3 50 mcg (2,000 unit) capsule Active SYNTHROID 112 mcg tablet Active simvastatin (ZOCOR) 10 MG tablet 10 mg. Active Active Problems Problem Noted Date Diagnosed Date Endometrial polyp 10/27/2024 Assessment & Plan (10/29/2024 10:26 AM EDT): Outside pelvic US reviewed, thin endometrial lining with possible endometrial polyp noted Pelvic exam within normal limits Pap smear collected Recommend proceeding with saline sonogram, order placed Follow up plan pending results of imaging Encounters Date Type Department Care Team Description 11/25/2024 Telephone [facility] [address] [place] [address] Seven Barnes MD from Last 3 Months Family History Medical History Relation Comments Diabetes Father Neuropathy Father Lung cancer Mother Relation Status Comments Brother 1 Alive Brother 2 Alive Father Alive Mother Social History Tobacco Use Types Packs/Day Years Used Date Smoking Tobacco: Never Smokeless Tobacco: Never Tobacco Cessation:Counseling Given: Not Answered Alcohol Use Standard Drinks/Week Comments Yes 0 (1 standard drink = 0.6 oz pur e alcohol) Education Answer Date Recorded Are you interested in more education? Not on maurizio e 09/01/2024 Are you concerned about learning? Not on file 09/01/2024 No 09/01/2024 No 09/01/2024 Digital Access Answer Date Recorded No 09/01/2024 No 09/01/2024 Reliable internet access at home? Not on file 09/01/2024 Device with a working camera? Not on file Comments No Sex and Gender Information Value Date Recorded Sex Assigned at Not on file Legal Sex Female 9:07 AM EST Gender Identity Not on file Sexual Orientation Not on file Last Filed Vital Signs Vital Sign Reading Time Taken Comments Blood Pressure 130/72 10/27/2024 9:21 AM EDT Pulse - - Temperature - - Respiratory Rate - - Oxygen Saturation - - Inhaled Oxygen Concentration - - Weight 67.1 kg (148 lb) 10/27/2024 9:21 AM EDT Height - - Body Mass Index - - Plan of Treatment Health Maintenance Due Date Last Done Comments LIPID PANEL 1965 TSH LEVEL 1965 DEPRESSION SCREENING 1975 HEPATITIS C SCREENING 1981 HIV ONE-TIME SCREENING (18-65 YEARS) 1981 MAMMOGRAM 2003 COLOGUARD 2008 COLONOSCOPY 2008 COLORECTAL CANCER SCREENING 2008 FIT TEST 2008 FOBT 2008 SIGMOIDOSCOPY 2008 VIRTUAL COLONOSCOPY 2008 PNEUMOCOCCAL VACCINES (50+ years) (1 of 1 - PCV) 2013 ZOSTER VACCINES (2 of 2) 11/24/2024 09/29/2024 INFLUENZA VACCINE (#1) 2025 , 04/04/2023, 04/03/2022, Additional history exists PAP SMEAR 10/28/2027 10/27/2024 Adult Td,Tdap Booster 06/22/2032 06/22/2022, 016 RSV VACCINE (1 - 1-dose 75+ series) 2038 COVID-19 VACCINE Completed 09/02/2024, 09/2022, 07/11/2021, Additional history exists SMOKING STATUS SCREENING (Once After 26 Yrs) Completed 10/27/2024 HEPATITIS A VACCINES Aged Out No long er eligible based on patient's age to complete this topic HIB VACCINES Aged Out No longer eligi ble based on patient's age to complete this topic MENINGOCOCCAL VACCINES (ACWY) Aged Out No longer eligible based on patient's age to complete this topic MENINGOCOCCAL VACCINES (B) Aged Out N o longer eligible based on patient's age to complete this topic Medical Devices Not on file Procedures Procedure Name Priority Date/Time Associated Diagnosis Comments PAP TEST Routine 10/27/2024 12:00 AM EDT from Last 3 Months or Most Recently Relevant to Health Maintenance Results * Pap Test (10/27/2024 12:00 AM EDT) 10/27/2024 10/28/2024 9:0 1 AM EDT Narrative SEE NARRATIVE - 10/31/2024 3:24 [place] [address] Application Helper: Yogi Bey MD MANAGER DISCOVERY Cytology Report FINAL DIAGNOSIS A. PAP SMEAR (THIN PREP) CE: SPECIMEN ADEQUACY: Satisfactory for evaluation; transformation zone present. INTERPRETATION: NEGATIVE FOR INTRAEPITHELIAL LESION OR MALIGNANCY. Atrophy. This specimen was analyzed by the automated ThinPrep Imaging System ([employer] Susana.) and the selected kline were reviewed by a donor center technician. Electronically Signed Out By: SHARAN Kaur(ASCP) SHARAN Adams(ASCP) The Pap test is a screening test primarily for squamous cancers and precursors and has associated false-negative and false-positive results. New technologies such as liquid-based preparations may decrease but will not eliminate all false-negative results. Regular sampling and follow-up of unexplained clinical signs and symptoms are recommended to minimize false negative results. PROCEDURES/ADDENDA HPV Testing (Requested) Ordered Date: 10/28/2024 A. PAP SMEAR (THIN PREP) CE: High-risk HPV Panel w/ extended genotyping NEG HPV 16-NEG HPV 18-NEG HPV 45-NEG HPV 33/58-NEG HPV 31-NEG HPV 56/59/66-NEG HPV 51-NEG HPV 52-NEG HPV 35/39/68-NEG Performed by real-time polymerase chain reaction (PCR) at [facility], [address] [place] [address] using the FDA-approved BD Onclarity HPV Assay with extended genotyping. Uses of the assay in scenarios other than those approved by the FDA should be considered off-label use. The accuracy and precision of this test for all other off-label specimen sources has been verified in the Cytopathology Laboratory of the [facility] and has not been cleared or approved by the U.S. Food and Drug Administration. Clinical correlation is advised. The assay assesses the E6/E7 DNA target and utilizes human beta globin as an internal control. Cytology and HPV testing are screening assays and should not be used as the sole means of detecting cancer. False-positives and false-negatives can occur. CLINICAL HISTORY Date of Last Menstrual Period: Not Provided Menstrual History: Post Menopausal Other Clinical Conditions: Screening Pap SPECIMEN SOURCE A: PAP SMEAR (THIN PREP) CE Patient Name: UMA BLANKENSHIP : 1965 (Age: 59) Sex: F Institution: [facility] Location: [facility] Date of Collection: 10/27/2024 Date of Reported: 10/31/2024 15:24 Results to: Tawana Little Tawana Manjarrez MD CYTOLOGY ORDER NAHUM Final Result SEE NARRATIVE from Last 3 Months or Most Recently Relevant to Health Maintenance Insurance [facility] Care Teams Cement Kiln Operator Relationship Specialty Start Date End Date Goyo Wilson MD [address] [place] [address] [place] [address] PCP - General Internal Medicine 08/27/24 Additional Source Comments The information contained in this document represents components of the legal health record. It is not the complete legal health record.[facility]
== END 2025-02-23 13:01 | disposition home or self-care (01) ==
LOC: HO.SH 13:00
PROVIDERS: Visit Provider Internal Medicine
DX: Z01.118 Encounter for examination of ears and hearing with other abnormal findings (principal); H90.3 Sensorineural hearing loss, bilateral
CPT/HCPCS: 92557; 92567

== ENCOUNTER 2025-04-27 08:52 | Outpatient (REF) | payer OTHER, SELFPAY | END 2025-04-27 08:53 | disposition home or self-care (01) | LOC: HO.MAMMO 08:52 | PROVIDERS: PCP Internal Medicine; Visit Provider Internal Medicine | DX: Z12.31 Encounter for screening mammogram for malignant neoplasm of breast (principal) | CPT/HCPCS: 77063; 77067 ==

== ENCOUNTER → 2025-04-27 09:00 | Outpatient (BNV) | payer OTHER, SELFPAY | PROVIDERS: PCP Internal Medicine; Visit Provider Internal Medicine | DX: Z12.31 Encounter for screening mammogram for malignant neoplasm of breast (principal) | CPT/HCPCS: 77063; 77067 ==

== ENCOUNTER 2025-05-12 08:22 | Outpatient (REF) | payer OTHER, SELFPAY ==
--- OUTSIDE RECORDS SUMMARY | 2025-05-12 08:29 | XMS_ITS | Clinical Summary ---
Author Organization [facility] Address [address] [place] [address] Phone Care Team Providers Care Boat Canvas Maker And Installer Name Role Phone Goyo Wilson MD Primary Care Provider [phone] Allergies Active Allergy Reactions Criticality Noted Date [...] Follow up plan pending results of imaging Family History Medical History Relation Comments Diabetes [...] 2025 , 04/04/2023, 04/03/2022, Additional history exists COVID-19 VACCINE ( - season) 2025 09/02/2024, 04/04/2023, 07/11/2021, Additional history exists PAP SMEAR 10/28/2027 10/27/2024 Adult Td,Tdap Booster 06/22/2032 06/22/2022, 016 RSV VACCINE (1 - 1-dose 75+ series) 2038 SMOKING STATUS SCREENING (Once After 26 Yrs) Completed 10/27/2024 HEPATITIS A VACCINES Aged Out No long er eligible based on patient's age to complete this topic HIB VACCINES Aged Out No longer eligi ble based on patient's age to complete this topic IPV VACCINES Aged Out No longer eligi ble [...] * Pap Test (10/27/2024 12:00 AM EDT) Report [address] [id number] Policy Intern: Yogi Bey MD FIELD MAP TECHNICIAN Cytology Report FINAL DIAGNOSIS A. PAP SMEAR (THIN PREP) CE: SPECIMEN ADEQUACY: Satisfactory for evaluation; transformation zone present. INTERPRETATION: NEGATIVE FOR INTRAEPITHELIAL LESION OR MALIGNANCY. Atrophy. This specimen was analyzed by the automated ThinPrep Imaging System (ThinkSmart.) and the selected kline were reviewed by a solar energy sales specialist. Electronically Signed Out By: SHARAN Kaur(ASCP) SHARAN [...] by real-time polymerase chain reaction (PCR) at [facility], [address] [place] [address] using the FDA-approved BD Onclarity HPV Assay with extended genotyping. Uses of the assay in scenarios other than those approved by the FDA should be considered off-label use. The accuracy and precision of this test for all other off-label specimen sources has been verified in the Cytopathology Laboratory of the [facility] and has not been cleared or [...] : 1965 (Age: 59) Sex: F [facility] Location: [facility] Date of Collection: 10/27/2024 Date of Reported: 10/31/2024 15:24 Results to: Tawana Bryan Tanisha [facility] Final Diagnosis A. PAP SMEAR (THIN PREP) CE: SPECIMEN ADEQUACY: Satisfactory for evaluation; transformation zone present. INTERPRETATION: NEGATIVE FOR INTRAEPITHELIAL LESION OR MALIGNANCY. Atrophy. This specimen was analyzed by the automated ThinPrep Imaging System ([employer] Susana.) and the selected kline were reviewed by a solar energy sales specialist. [facility] Results\Inter pretation A. PAP SMEAR (THIN PREP) CE: High-risk HPV Panel w/ extended genotyping NEG HPV 16-NEG HPV 18-NEG HPV 45-NEG HPV 33/58-NEG HPV 31-NEG HPV 56/59/66-NEG HPV 51-NEG HPV 52-NEG HPV 35/39/68-NEG Performed by real-time polymerase chain reaction (PCR) at [facility], [address] [place] [address] using the FDA-approved BD Onclarity HPV Assay with extended genotyping. Uses of the assay in scenarios other than those approved by the FDA should be considered off-label use. The accuracy and precision of this test for all other off-label specimen sources has been verified in the Cytopathology Laboratory of the [facility] and has not been cleared or approved by the U.S. Food and Drug Administration. Clinical correlation is advised. The assay assesses the E6/E7 DNA target and utilizes human beta globin as an internal control. Cytology and HPV testing are screening assays and should not be used as the sole means of detecting cancer. False-positives and false-negatives can occur. [facility] Conversion Type (Conversion Source) 10/27/2024 10/28/2024 9:01 AM EDT Tawana Manjarrez MD CYTOLOGY ORDER NAHUM Edited Result - Final [facility] [address] [place] [address] from Last 3 Months or Most Recently Relevant to Health Maintenance [facility] [place] [id number] [facility] Care Teams Boat Canvas Maker And Installer Relationship Specialty Start Date End Date Goyo Wilson MD [address] [place] [address] [place] [address] PCP - General Internal Medicine 08/27/24 Additional Source Comments The information contained in this document represents components of the legal health record. It is not the complete legal health record.[facility]
[2025-05-12 10:29] LABS: MANUAL DIFF FLAG NO
[2025-05-12 10:33] LABS: Appearance Urine Clear; Glucose Urine UA Negative (Negative); PH 8.5 (5.0-9.0); Specific Gravity - Urine 1.015 (1.005-1.025)
[2025-05-12 10:46] LABS: Hematocrit 40.8 % (37.0-47.0); Hemoglobin 13.2 g/dl (12.0-16.0); Imm Gran Abs Auto 0.02 X10*3/uL (0.00-0.03); Imm Gran Pct Auto 0.3 % (0.0-0.4); Lymphocytes Absolute Auto 1.9 X10*3/uL (1.2-4.9); Mean Corpuscular HGB Conc 32.4 g/dl (31.0-35.0); Mean Corpuscular Hemoglobin 29.1 pg (27.0-33.0); Mean Corpuscular Volume 89.9 fL (80.0-98.0); NRBC Abs Auto 0.000 X10*3/uL (0.0-0.012); NRBC Pct Auto 0.0 /100WBC (0.0-0.2); Platelet Count 279 X10*3/uL (160-400); Red Blood Count 4.54 X10*6/uL (4.20-5.50); White Blood Count 6.1 X10*3/uL (4.8-10.8)
[2025-05-12 10:49] LABS: Alanine Aminotransferase 11 U/L (0-31); Albumin Level 4.0 g/dL (3.5-5.0); Alkaline Phosphatase 78 U/L (39-117); Anion Gap 11 (12-20); Aspartate Amino Transferase 20 U/L (5-31); Blood Urea Nitrogen 13 mg/dL (9-16); Calcium 9.3 mg/dL (8.4-10.2); Carbon Dioxide 27 mmol/L (22-29); Chloride 108 mmol/L (96-108); Cholesterol 162 mg/dL (<200); Estimated Glomerular Filt Rate > 60; HDL Cholesterol 48 mg/dL (>40); Potassium 4.1 mmol/L (3.3-5.1); Sodium 142 mmol/L (135-145); Total Protein 6.8 g/dL (6.5-8.0); Triglycerides 90 mg/dL (<150)
[2025-05-12 11:09] LABS: Free T4 (Free Thyroxine) 1.24 ng/dL (0.71-1.85); Thyroid Stimulating Hormone 0.16 uIU/mL (0.32-4.0)
== END 2025-05-12 08:23 | disposition home or self-care (01) ==
LOC: HO.HMGCLDS 08:22
PROVIDERS: PCP Internal Medicine; Visit Provider Internal Medicine
DX: R30.0 Dysuria (principal); D64.9 Anemia, unspecified; E78.00 Pure hypercholesterolemia, unspecified; E03.9 Hypothyroidism, unspecified
CPT/HCPCS: 36415; 80053; 80061; 81003; 84439; 84443; 85025

== ENCOUNTER 2025-05-18 10:02 | Outpatient (AMB) | payer OTHER, SELFPAY ==
[2025-05-18 10:04] VITALS: BP 104/70; PULSE 69; O2SAT 98; BMI 26.8
--- NOTE | 2025-05-18 10:04 | MHC.PC.OV ---
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 rash, headaches ? Medication List - Last Reconciled 05/18/25 by Goyo Wilson MD albuterol sulfate 90 mcg/actuation 2 puffs inhalation Q6H PRN cholecalciferol (vitamin D3) 50 mcg PO DAILY 90 days levothyroxine (Euthyrox) 112 mcg PO QAM 90 days simvastatin 10 mg PO BEDTIME 90 days Tobacco use date assessed: 05/18/25 Dental Screening Dental Screen Date: 05/18/25 Did you have a dental visit in the last 12 months?: Yes Did you have a dental problem in the last 6 months where you did not have access to dental care?: No Was dental information given to patient?: Patient has dentist HPI hyperlipidemia, hypothyroidism, GERD HPI Details Patient comes in today for her follow up visit States that she feels okay She denies any headaches or dizziness Denies any chest pains, no increased SOB No nausea/vomiting, no abdominal pain No change in bowel habits noted She had her follow up labs done last week - to discuss her results Patient adds that she is still experiencing recurrent pain and stiffness in the fingers of her hands often and has recently noticed an increased in the swelling of the joints on a few fingers; she has also noticed that her index fingers, especially on her right hand, seems to be bending/deviating now to one side and is requesting for a referral to rheumatology for further recommendations She is also requesting for a referral to have her multiple drug/medication allergies retested [facility] Medical History Osteoarthritis of hands, bilateral Vitamin D deficiency Varicose veins of bilateral lower extremities with pain Right hip pain Overweight (BMI 25.0-29.9) Anxiety Allergic rhinitis GERD without esophagitis Acquired hypothyroidism Exertional dyspnea Pure hypercholesterolemia Palpitations Surgical History History of bone graft History of colonoscopy History of laparoscopic cholecystectomy Family History Father Diabetes Mother Cancer Social History Housing: House Housing Other:: mobile home Alcohol intake: current Alcohol intake frequency: a few times a month Alcohol type: beer and wine Patient Tobacco Use Status: Former Tobacco user Tobacco use type: Cigarette e-Cigarette/Vaping Use: Never Used Second Hand Smoke Exposure: Yes Substance Use Type: Marijuana service: No Current occupational status: employed 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 1. Little interest or pleasure in doing things: not at all 2. Feeling down, depressed, or hopeless: not at all 3. Trouble falling or staying asleep, or sleeping too much: not at all 4. Feeling tired or having little energy: not at all 5. Poor appetite or overeating: not at all 6. Feeling bad about yourself - or that you are a failure or have let yourself or your family down: not at all 7. Trouble concentrating on things, such as reading the newspaper or watching television: not at all 8. Moving or speaking so slowly that other people could have noticed. Or the opposite - being so fidgety or restless that you have been moving around a lot more than usual: not at all 9. Thoughts that you would be better off or of hurting yourself in some way: not at all Total score: 0 Depression Screening Interpretation: Negative Depression Screening Done: Yes 38698 - PHQ-9 Billing: Yes Source: Developed by Drs. Maikel Leal, Donna Diez, Smith Lu and colleagues, with an educational hamilton from [employer]. Thrive Questionnaire Date Thrive assessed: 05/18/25 I am a: Patient What is your living situation today?: I have a steady place to live Within the past 12 months, did the food you bought not last and you didn't have the money to get more?: Never true Within the past 12 months, did you worry whether your food would run out before you got money to buy more?: Never true Do you have trouble paying for medicines?: No Do you have trouble getting transportation to medical appointments?: No Do you have trouble paying your heating and electricity bill?: No Do you have trouble taking care of your child, family member or friend?: No Do you have trouble with day-to-day activities such as bathing, preparing meals, shopping, managing finances, etc.?: No Are you currently unemployed and looking for a job?: No Are you interested in more education?: No Please select the resources that you would like help with: None Currently or been in a relationship where the following occur: No concerns reported THRIVE Score: 0 AUDIT C Alcohol Use Questionnaire (AUDIT-C) 1. How often do you have a drink containing alcohol?: 2-4 times a month 2. How many drinks containing alcohol do you have on a typical day when you are drinking?: 1 or 2 3. How often do you have six or more drinks on one occasion?: Never Total Score: 2 Score Reviewed/Action Taken: Yes CHANTAL-7 AMB Questionnaire CHANTAL-7 Date CHANTAL - 7 assessed: 05/18/25 Feeling nervous, anxious, or on edge: 0 = Not at all Not being able to stop or control worryin = Not at all Worrying too much about different things: 0 = Not at all Trouble relaxin = Not at all Being so restless that it is hard to sit still: 0 = Not at all Becoming easily annoyed or irritable: 0 = Not at all Feeling afraid as if something awful might happen: 0 = Not at all Total CHANTAL-7 score (0-4 normal; 5-9 mild; 10-14 moderate; 15-21 severe): 0 Source: Developed by [employer], Smith Lu and colleagues, with an educational hamilton from [employer]. Review of Systems Const Denies chills, Denies fatigue, Denies fever(s) and Denies headache(s) ENT Denies dysphagia, Denies dizziness, Denies otalgia, Denies headache(s), Reports hearing loss, Denies neck pain, Denies odynophagia, Reports tinnitus (bilateral) and Denies sore throat Card Denies chest pain, Denies palpitations and Denies dyspnea Resp Denies chest congestion, Denies cough and Denies dyspnea GI Denies abdominal pain, Denies constipation, Denies dysphagia, Denies diarrhea, Denies nausea, Denies odynophagia and Denies vomiting Denies difficulty voiding, Denies nocturia, Denies dysuria and Denies urinary urgency Musc Denies back pain, Reports arthralgias (on and off over both wrists and hands, including the fingers ), Denies neck pain, Reports numbness (recurrent in both hands, especially in the morning when she wakes up) and Reports tingling (frequent, in both hands) Skin/Breast Denies rash Neuro Denies dizziness, Denies headache(s), Reports numbness (recurrent in both hands, especially in the morning when she wakes up), Reports tingling (frequent, in both hands) and Reports paresthesias (recurrent in both hands) Endo Denies fatigue and Denies palpitations Physical exam (Primary Care) Vital Signs: Last Vital Signs Pulse 69 05/18/25 10:04 BP 104/70 05/18/25 10:04 Pulse Ox 98 05/18/25 10:04 Oxygen Delivery Method Room Air 05/18/25 10:04 BMI result Body Mass Index 26.8 Tobacco/Smoking Status: Tobacco use Status Tobacco use date assessed 05/18/25 05/18/25 10:12 Patient Tobacco Use Status Former Tobacco user 05/18/25 10:12 Tobacco use type Cigarette 05/18/25 10:12 e-Cigarette/Vaping Use Never Used 05/18/25 10:12 PHQ-9: PHQ-9 Score PHQ-9: Total score 0 05/18/25 10:12 Depression Screening Interpretation: Negative Thrive Assessment: Date of Thrive Assessment Date Thrive assessed 05/18/25 05/18/25 10:12 Currently or been in a relationship where the following occur: No concerns reported Const General: no acute distress and alert HENMT Ears: TM's normal bilaterally and EAC's normal Throat: Yes posterior oropharynx normal and Yes tonsils normal Neck Neck: Yes supple and No lymphadenopathy Thyroid: Thyroid normal Resp Auscultation: clear to auscultation bilaterally, no crackles, no rales and no wheezes Cardio Rate: regular rate Rhythm: regular rhythm Heart sounds: no murmurs GI Palpation (GI): Soft to palpation and nontender Auscultation: normal bowel sounds General: Yes no CVA tenderness Back/Spine/Pelvis Back: no CVA tenderness Cervical Spine: No Cervical spine tenderness Thoracic/Lumbar Spine: No lumbar spinal tenderness Skin Rashes: no rashes Extrem Other: (+) Heberden's nodes noted on the distal IP joints of a few fingers on both hands; the index finger on the right hand also appears slightly deviated towards the ulnar side of the hand General: Yes no clubbing, cyanosis or edema Right upper extremity: Extremity exam: right hand Details: tenderness (over the interphalangeal joints of the fingers, especially the DIP) Left upper extremity: hand Details: tenderness (over the interphalangeal joints of the fingers, especially the DIP) Results Reviewed Results Reviewed: Laboratory Tests 01/08/25 05/12/25 05/12/25 08:43 08:26 08:30 WBC 6.1 Hgb 13.2 Hct 40.8 Plt Count 279 D Sodium 142 Potassium 4.1 Creatinine 0.61 Estimated GFR > 60 Fasting Glucose 97 Calcium 9.3 AST 20 ALT 11 Triglycerides 90 Cholesterol 162 LDL Cholesterol, Calc 96 HDL Cholesterol 48 25-OH Vitamin D Total 50.2 TSH 0.16 L Free T4 1.24 Urine pH 8.5 Ur Specific [place] 1.015 Urine Protein Negative Urine Glucose (UA) Negative Urine Blood Negative Urine Nitrite Negative Ur Leukocyte Esterase Negative Coding Level of Care Code Est Pt Level 4 (91885) Diagnoses Pure hypercholesterolemia E78.00 Acquired hypothyroidism E03.9 Palpitations R00.2 GERD without esophagitis K21.9 Primary osteoarthritis of both hands M19.041; M19.042 Osteoarthritis type: primary Multiple drug allergies Z88.9 Allergic rhinitis, unspecified seasonality, unspecified trigger J30.9 Allergic rhinitis trigger: unspecified Allergic rhinitis seasonality: unspecified Tinnitus of both ears H93.13 Anxiety F41.9 Overweight (BMI 25.0-29.9) E66.3 Additional Codes PHQ-9 - 05845 - PHQ-9 Billing: Yes ([id number]) Assessment & Plan Assessment & Plan (1) Pure hypercholesterolemia: Code(s): E78.00 - Pure hypercholesterolemia, unspecified Category: Medical Plan: Results of her labs done last week reviewed and discussed with patient - her cholesterol levels have improved slightly from previous Reinforced low-cholesterol diet Continue Simvastatin 10 mg QD Will recheck her labs and fasting lipids in 4 months for follow-up (2) Acquired hypothyroidism: Code(s): E03.9 - Hypothyroidism, unspecified Category: Medical Plan: Her TFTs are normal/unchanged on her recent labs Continue Levothyroxine 112 mcg daily Will have her recheck her TFTs in 4 months for follow up (3) Palpitations: Code(s): R00.2 - Palpitations Category: Medical Plan: Patient states that this hardly bothers her nowadays Follow up with cardiology as scheduled or as needed (4) GERD without esophagitis: Code(s): K21.9 - Gastro-esophageal reflux disease without esophagitis Category: Medical Plan: Dietary restrictions reinforced S/P EGD in 09/2016 - (+) mild gastritis and GERD Continue Famotidine 20 mg QD PRN - patient was unable to tolerate Omeprazole due to side effects (5) Osteoarthritis of hands, bilateral: Code(s): M19.041 - Primary osteoarthritis, right hand; M19.042 - Primary osteoarthritis, left hand Category: Medical Qualifiers: Osteoarthritis type: primary Qualified Code(s): M19.041 - Primary osteoarthritis, right hand; M19.042 - Primary osteoarthritis, left hand Plan: Patient states that she is starting to note (+) deviation of some of her fingers and some of her finger joints are gradually becoming more prominent and she would like to see rheumatology for further recommendations Referral to rheumatology placed (6) Multiple drug allergies: Code(s): Z88.9 - Allergy status to unspecified drugs, medicaments and biological substances Category: Medical Plan: Patient is also requesting for a referral to have her supposed multiple drug allergies, especially those to Ibuprofen and Prednisone. rechecked, as she would like to see if taking NSAIDs can help with her arthritis pains Referral to thumb sewer placed (7) Allergic rhinitis: Code(s): J30.9 - Allergic rhinitis, unspecified Category: Medical Qualifiers: Allergic rhinitis trigger: unspecified Allergic rhinitis seasonality: unspecified Qualified Code(s): J30.9 - Allergic rhinitis, unspecified Plan: Continue OTC Loratadine 10 mg QD PRN (8) Tinnitus of both ears: Code(s): H93.13 - Tinnitus, bilateral Category: Medical Plan: Discussed with patient that tinnitus is usually a symptom of hearing loss Patient states that she has noticed (+) hearing loss on her part lately and would like to have this checked out further States that her hearing evaluation done recently revealed (+) hearing loss and she was reportedly advised that she qualifies for hearing aids but they are quite costly and are not really covered by her insurance (9) Anxiety: Code(s): F41.9 - Anxiety disorder, unspecified Category: Medical Plan: Continue Lorazepam 0.5 mg 1 to 2 times a day PRN and Sertraline 50 mg QD (10) Overweight (BMI 25.0-29.9): Code(s): E66.3 - Overweight Category: Medical Plan: Reinforced diet/exercise as tolerated/lose weight Plan Follow up in 4 months Orders: Orders Complete Blood Count Auto Diff 4 Months D64.9 - Anemia, unspecified Thyroid Stimulating Hormone 4 Months E03.9 - Hypothyroidism, unspecified Vitamin D 25-OH Total 4 Months E55.9 - Vitamin D deficiency, unspecified Comprehensive [place]. Panel Fast 4 Months E78.00 - Pure hypercholesterolemia, unspecified Lipid Panel 4 Months E78.00 - Pure hypercholesterolemia, unspecified Free T4 (Free Thyroxine) 4 Months E03.9 - Hypothyroidism, unspecified UA CC w/rflx Micro + Cult 4 Months R30.0 - Dysuria Referrals Rheumatology Referral M19.041 - Primary osteoarthritis, right hand, M19.042 - Primary osteoarthritis, left hand Allergy & Immunology Referral Z88.9 - Allergy status to unspecified drugs, medicaments and biological substances
== END 2025-05-18 10:50 | disposition home or self-care (01) ==
LOC: HO.HMCH 10:03
PROVIDERS: PCP Internal Medicine; Visit Provider Internal Medicine
DX: E78.00 Pure hypercholesterolemia, unspecified (principal); E03.9 Hypothyroidism, unspecified; R00.2 Palpitations; K21.9 Gastro-esophageal reflux disease without esophagitis; M19.041 Primary osteoarthritis, right hand; M19.042 Primary osteoarthritis, left hand; Z88.9 Allergy status to unspecified drugs, medicaments and biological substances; J30.9 Allergic rhinitis, unspecified; H93.13 Tinnitus, bilateral; F41.9 Anxiety disorder, unspecified; E66.3 Overweight

== ENCOUNTER → 2025-05-18 10:02 | Outpatient (BNVA) | payer OTHER, SELFPAY | PROVIDERS: PCP Internal Medicine; Visit Provider Internal Medicine | DX: K21.9 Gastro-esophageal reflux disease without esophagitis (principal); E03.9 Hypothyroidism, unspecified; E78.5 Hyperlipidemia, unspecified; E78.00 Pure hypercholesterolemia, unspecified; R00.2 Palpitations; M19.041 Primary osteoarthritis, right hand; M19.042 Primary osteoarthritis, left hand; J30.9 Allergic rhinitis, unspecified; H93.13 Tinnitus, bilateral; F41.9 Anxiety disorder, unspecified; E66.3 Overweight; D64.9 Anemia, unspecified; R30.0 Dysuria; Z88.9 Allergy status to unspecified drugs, medicaments and biological substances | CPT/HCPCS: 96127 ==